=== PATIENT | female | born 1980 | race Caucasian/White ===

== ENCOUNTER 2022-05-02 13:26 | Inpatient (IN) | payer OTHER, MEDICAID, SELFPAY ==
[2022-05-02] VITALS (16 sets, daily range): BP systolic 153–187; BP diastolic 89–142; PULSE 70–112; RESP 12–38; TEMP 36.2–36.7; O2SAT 96–100; BMI 21.0
--- NOTE | 2022-05-02 14:17 | ED.RN ---
PT TOLD THIS RN THAT SHE HAS METH, WEED, AND ALCOHOL IN HER SYSTEM. THIS RN TOLD DR. BELTRAN. PER DR. BELTRAN, MORPHINE OKAY TO GIVE.
[2022-05-02] MEDS: Morphine 4 MG/ML Syringe IV ×2 (14:18→19:31)
--- NOTE | 2022-05-02 14:23 | RAD_ITS ---
STUDY: X-RAY - LEFT ANKLE REASON FOR EXAM: Female, 42 years old. Injury/Pain TECHNIQUE: 3 view(s) of the ankle. COMPARISON: None. FINDINGS: There is an acute comminuted fracture through the mid body of the talus with distraction and complete displacement of the fracture fragments resulting in disarticulation injury. A comminuted fracture of the medial malleolus with displacement is also present. A small avulsive fracture at the periphery of the lateral malleolus is also visualized. The surrounding soft tissues are diffusely swollen. Normal visualized calcaneus. The visualized subtalar, talonavicular, calcaneocuboid and tarsal articulations are normal. The soft tissue structures are unremarkable. RAD/Ankle min 3 Views IMPRESSION: 1. There is an acute comminuted fracture through the mid body of the talus with distraction and complete displacement of the fracture fragments resulting in disarticulation injury. 2. Comminuted fracture the medial malleolus 3. Small avulsive injury at the periphery of the lateral malleolus. Electronically Signed: Brian Delaney MD at 15:02 EST ,
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
--- NOTE | 2022-05-02 15:22 | ED.RN ---
PT A & O X3 PRIOR TO SIGNING CONSENT.
--- NOTE | 2022-05-02 16:10 | RAD_ITS ---
EXAM: XR LEFT ANKLE COMPLETE, 3 OR MORE VIEWS CLINICAL INDICATION: Injury/Pain TECHNIQUE: Frontal, lateral and oblique views of the left ankle. This report was created using [employer] report generation technology. COMPARISON: 04/30/2022 1427 hours FINDINGS: BONES/JOINTS: A fiberglass cast has been placed over the left foot and ankle. Fracture through the mid body talus with displacement as well as the medial malleolus is unchanged. There has been no change in the alignment of the fracture fragments of the tibiotalar joint. No sclerotic or destructive changes observed. SOFT TISSUES: Unremarkable. No soft tissue swelling or gas. No radiopaque foreign body. RAD/Ankle min 3 Views IMPRESSION: Splinting of the fracture and disarticulation of the talus and medial malleolus. There has been no change in alignment. Electronically Signed: Tyron Patrick MD at 16:51 EST ,
[2022-05-02] MEDS: Propofol 200 MG/20 ML Vial IV BOLUS (16:16)
--- NOTE | 2022-05-02 17:00 | CT_ITS ---
EXAM: CT LEFT LOWER EXTREMITY WITHOUT INTRAVENOUS CONTRAST, ANKLE CLINICAL INDICATION: Ankle fracture TECHNIQUE: Helically acquired images were obtained of the left ankle without intravenous contrast. 2-D reformats were performed by the technologist. This CT exam was performed using one or more of the following dose reduction techniques: automated exposure control, adjustment of the mA and/or kV according to patient size, and/or use of iterative reconstruction technique. This report was created using [employer] report Devex technology. COMPARISON: None. FINDINGS: BONES/JOINTS: There is a fracture through the body of the talus. Fracture fragments are distracted approximately 1.8 cm. There is a fracture of the medial malleolus. There has been a posterior rotation of the proximal fragment of the talus bone which is no longer articulating with the tibia. No dislocation. SOFT TISSUES: Unremarkable. No soft tissue swelling or gas. No radiopaque foreign body. CT/Extremity Lower without Contra IMPRESSION: Fracture through the waist of the talus with a posterior rotation of the proximal portion of the talus articulates with the tibia. There is also a fracture of the medial malleolus of the distal tibia. Electronically Signed: Tyron Patrick MD at 18:35 EST ,
[2022-05-02] MEDS: traMADol 50 MG Tablet PO (17:07)
--- NOTE | 2022-05-02 19:17 | ED.RN ---
MARSHAL THAO BOYFRIEND NUMBER [phone]
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
--- NOTE | 2022-05-02 21:41 | EKG12_ITS ---
Test Reason : PRE-OP Blood Pressure : / mmHG Vent. Rate : 070 BPM Atrial Rate : 070 BPM P-R Int : 112 ms QRS Dur : 098 ms QT Int : 426 ms P-R-T Axes : 053 046 070 degrees QTc Int : 460 ms Normal sinus rhythm Normal ECG Confirmed by RONY CESPEDES, ALEJANDRA ([id number]), technical editor ELVIA KEENE ([id number]) on 05/05/2022 9:09:54 AM Referred By: KIM Confirmed By:ALEJANDRA URIBE MD
[2022-05-02] MEDS: 0.9% Normal Saline 1,000 ML 75 ML IV (21:46)
[2022-05-02] MEDS: Morphine 2 MG/ML Syringe IV (21:46)
[2022-05-02 22:12] LABS: Absolute Lymphocyte Count 1.43 X10^3/uL (0.83-4.51); Absolute Neutrophil Count 6.8 X10^3/uL (2.0-7.7); Basophil# 0.02 X10^3/uL; Basophil% 0.2 % (0-1); Eosinophil# 0.03 X10^3/uL; Eosinophils% 0.3 % (0-5); Hematocrit 41.3 % (37-47); Hemoglobin 14.3 g/dL (12.0-15.0); Lymphocyte # 1.43 X10^3/ul (0.83-4.51); Lymphocyte % 15.5 % (19-41); Mean Corp Hgb Conc 34.6 g/dL (32-36); Mean Corpuscular Volume 92.4 fL (81-99); Mean Platelet Vol. 11.2 fl (6.2-12.0); Monocyte# 0.88 X10^3/uL; Monocyte% 9.5 % (0-10); NRBC Flagged by Analyzer 0 % (0-5); Neutrophil # 6.84 X10^3/uL (2.7-7.7); Neutrophil % 74.3 % (47-70); Platelet Count 203 K/mm3 (150-450); RBC Distribution Width CV 12.8 % (11.6-14.6); RBC Distribution Width SD 43.4 fl (35.1-43.9); Red Blood Count 4.47 M/mm3 (4.2-5.4); White Blood Count 9.2 K/mm3 (4.4-11.0)
[2022-05-02 22:36] LABS: Anion Gap 5 (5-15); BUN 10 mg/dL (7-18); BUN/Creat Ratio 15.9 RATIO (10-20); Calcium,Total 8.6 mg/dL (8.5-10.1); Chloride 104 mmol/L (98-107); Creatinine, Serum 0.63 mg/dL (0.55-1.02); EST Glomerular Filtration Rate 110 mL/min (>60); Est Glom Filt Rate - Afr Amer 133 mL/min (>60); Estimated Creatinine Clearance 107.42 ml/min; Glucose 122 mg/dL (74-106); Potassium 3.9 mmol/L (3.5-5.1); Sodium Level 137 mmol/L (136-145)
[2022-05-02] MEDS: hydroCHLOROthiazide 25 MG Tablet PO (22:36)
[2022-05-03 02:00] VITALS: BP 157/78; PULSE 80; RESP 16; TEMP 36.6; O2SAT 99
[2022-05-03] MEDS: oxyCODONE 5 MG Tablet 10 MG PO ×4 (02:45→23:18)
[2022-05-03 03:30] LABS: Internal QC Validated? YES +Cl - CLEAR BKGD; Pregnancy, Urine Negative Negative
[2022-05-03 03:40] LABS: Amphetamine Urine VISTA POSITIVE (<1000 ng/mL); Barbiturate Urine VISTA NEGATIVE (< 200 ng/mL); Benzodiazepine Urine VISTA NEGATIVE (< 200 ng/mL); Cocaine Urine VISTA NEGATIVE (< 300 ng/mL); Ecstacy Urine VISTA POSITIVE (< 500 ng/mL); Methadone Urine VISTA NEGATIVE (< 300 ng/mL); PCP Urine VISTA NEGATIVE (< 25 ng/mL); THC Urine VISTA POSITIVE (< 50 ng/mL); Vista UDS pH Range 5
[2022-05-03 05:33] LABS: Absolute Lymphocyte Count 0.85 X10^3/uL (0.83-4.51); Absolute Neutrophil Count 6.6 X10^3/uL (2.0-7.7); Basophil# 0.01 X10^3/uL; Basophil% 0.1 % (0-1); Eosinophil# 0.04 X10^3/uL; Eosinophils% 0.5 % (0-5); Hematocrit 41.7 % (37-47); Hemoglobin 14.5 g/dL (12.0-15.0); Lymphocyte # 0.85 X10^3/ul (0.83-4.51); Lymphocyte % 10.3 % (19-41); Mean Corp Hgb Conc 34.8 g/dL (32-36); Mean Corpuscular Hgb 31.9 pg (27.0-32.0); Mean Corpuscular Volume 91.6 fL (81-99); Mean Platelet Vol. 11.4 fl (6.2-12.0); Monocyte# 0.77 X10^3/uL; Monocyte% 9.3 % (0-10); NRBC Flagged by Analyzer 0 % (0-5); Neutrophil # 6.55 X10^3/uL (2.7-7.7); Neutrophil % 79.6 % (47-70); Platelet Count 190 K/mm3 (150-450); RBC Distribution Width CV 12.8 % (11.6-14.6); Red Blood Count 4.55 M/mm3 (4.2-5.4); White Blood Count 8.2 K/mm3 (4.4-11.0)
[2022-05-03 06:09] LABS: Anion Gap 8 (5-15); BUN 7 mg/dL (7-18); BUN/Creat Ratio 12.5 RATIO (10-20); Calcium,Total 8.6 mg/dL (8.5-10.1); Chloride 99 mmol/L (98-107); Creatinine, Serum 0.56 mg/dL (0.55-1.02); EST Glomerular Filtration Rate 125 mL/min (>60); Est Glom Filt Rate - Afr Amer 151 mL/min (>60); Estimated Creatinine Clearance 120.85 ml/min; Glucose 122 mg/dL (74-106); Potassium 3.2 mmol/L (3.5-5.1); Sodium Level 133 mmol/L (136-145)
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
[2022-05-03 08:10] VITALS: BP 159/99; PULSE 85; RESP 16; TEMP 36.6; O2SAT 97
[2022-05-03] MEDS: 0.9% Saline Lock 10 ML Syringe IV (08:12)
[2022-05-03] MEDS: Morphine 2 MG/ML Syringe IV (08:12)
[2022-05-03] MEDS: Multivitamins,Therapeutic Tablet 1 TABLET PO (08:16)
[2022-05-03] MEDS: Thiamine Hydrochloride 100 MG Tablet PO (08:16)
[2022-05-03] MEDS: Folic Acid 1 MG Tablet PO (08:16)
--- NOTE | 2022-05-03 10:00 | CASEMGMT ---
RN ZUNILDA SKIN WASHER CM to room to meet with patient for initial transition planning/care coordination assessment. RN ZUNILDA introduced self and role at [facility]. Pt voices understanding and consents to assessment at this time. Pt resting in bed in no distress at this time. Pt is alert at this time. Able to answer most questions appropriately, but then other answers were vague and pt would not provide further information. Care provider and pharmacy verified at this time, but unable to determine if address pt provided is correct. The address listed on demographic sheet is in [place], but pt provided an address in [place]: [address] [place] [address] Rd. When RN ZUNILDA informed her there was an address in [place] listed, pt stated, I'm here, there, everywhere. I'm w/different people. PCP: Janet Johnson NP Specialists: none Preferred Pharmacy: [facility] Insurance: [email or web address] Prescription Benefit: Yes LNOK: Pt states she had a child but she adopted her out. She states her parents are and that she has 3 siblings, but they are not involved and states, It's been a minute since she last spoke w/them. There is a Leif Self, friend, listed on her demographics. She states he used to be her drug and ETOH counselor. RN ZUNILDA inquired if she is still seeing a counselor. She stated, No, but I need to. ETOH/Drug use: Pt states she currently drinks ETOH, stating she drinks 3 drinks, if that, a day. She also states she currently uses IV drugs, meth and heroin, stating last use was a couple days ago. She states she smokes marijuana As often as I can. Living Arrangements: Pt states she lives w/a friend, Mariano Smith, in a manufactured home one story w/3 steps to enter. She thinks his phone number is [phone], but she is not sure. She reports being independent w/ADL's. She states she does not take any medications, stating, I'm supposed to be on meds, but I don't take them. TANIA MAURO inquired what the reason is for not taking them and she stated, I just don't. Transportation: friends give me rides DME: Denies using any DME HHC/SNF: Denies hx of either. Pt states, I want to go to a [facility], stating she is having so much pain and she is unable to walk. PLAN: TBD. Possible SNF placement. RUBY, Marci, and MS3 RN Thania MAURO, made aware of the above information Maciel MURCIAN RN CM
[2022-05-03 10:01] LABS: Magnesium 1.7 mg/dL (1.6-2.6)
[2022-05-03] MEDS: hydroCHLOROthiazide 25 MG Tablet PO (10:24)
[2022-05-03] MEDS: Potassium Chloride Oral Tablet 20 MEQ 40 MEQ PO ×2 (10:25→13:56)
[2022-05-03] MEDS: 0.9% Normal Saline 1,000 ML 75 ML IV ×2 (10:29→23:18)
--- NOTE | 2022-05-03 10:56 | CASEMGMT ---
Social Work SW informed by RNCM Karina that pt is requesting SNF at discharge. Pt having surgery tomorrow for ankle fracture, if pt is a&o x3 and can consent. RNCM also shared pt disclosed has been struggling with drug and alcohol use and would like to speak to someone regarding counseling. SW updated [facility] watchmaking teacher, Domiinque De La O. Dominique to see pt when pt is more alert. PLAN: TBD, will await therapy following surgery to determine need for SNF NOAM Aguirre
[2022-05-03] MEDS: Lisinopril 10 MG Tablet PO (13:56)
[2022-05-03 13:59] VITALS: BP 157/98; PULSE 82; RESP 16; TEMP 36.6; O2SAT 98
[2022-05-03 23:08] VITALS: BP 162/109; PULSE 98; RESP 18; TEMP 36.6; O2SAT 100
[2022-05-03 23:18] VITALS: BP 162/109; PULSE 98
[2022-05-03] MEDS: hydrALAZINE 20 MG/ML Vial 5 MG IV (23:18)
[2022-05-04] VITALS (10 sets, daily range): BP systolic 109–165; BP diastolic 78–101; PULSE 94–135; RESP 15–20; TEMP 36.6–38.7; O2SAT 95–100; BMI 19.3
[2022-05-04] MEDS: Cefazolin 2 GM in 0.9% Normal Saline 100 ML IV (08:02)
--- NOTE | 2022-05-04 08:04 | RAD_ITS ---
STUDY: X-RAY - LEFT ANKLE REASON FOR EXAM: Female, 42 years old. FX TECHNIQUE: 19 fluoroscopic spot view(s) of the ankle. COMPARISON: May 02, 2022. FINDINGS: Progressive fixation hardware placement medial malleolus and talus. RAD/Ankle 2 Views IMPRESSION: Please correlate with clinical service. Electronically Signed: Shaquille Muniz MD at 17:47 EST ,
[2022-05-04] MEDS: Lactated Ringers 1,000 ML 15 ML IV (08:10)
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
--- NOTE | 2022-05-04 14:22 | RAD_ITS ---
EXAM: XR LEFT FOOT COMPLETE, 3 OR MORE VIEWS CLINICAL INDICATION: Postop ORIF TECHNIQUE: Frontal, lateral and oblique views of the left foot. This report was created using [employer] (formerly [employer]) report generation technology. COMPARISON: 05/02/2022. FINDINGS: BONES/JOINTS: Plate and screw fixation of the medial malleolus with anatomic alignment. Plate and screw fixation of the talus with near anatomic alignment of the fragments. No acute fracture. Preservation of the joint space. No sclerotic or destructive changes observed. Normal width of the mortise. SOFT TISSUES: Unremarkable. No soft tissue swelling or gas. No radiopaque foreign body. OTHER FINDINGS: Fiberglas cast. RAD/Foot min 3 Views IMPRESSION: 1. Plate and screw fixation of the medial malleolus with anatomic alignment. 2. Plate and screw fixation of the talus with near anatomic alignment of the fragments. Electronically Signed: Reji Garcia MD at 5:35 EST ,
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
--- NOTE | 2022-05-04 14:40 | RAD_ITS ---
STUDY: X-RAY - LEFT ANKLE REASON FOR EXAM: Female, 42 years old. Post operative TECHNIQUE: 3 view(s) of the ankle. COMPARISON: None. FINDINGS: Sideplate and screws transfix a nondisplaced fracture of the medial malleolus. Screws and plates transfixing the talus. Detail obscured by posterior fiberglass splint. RAD/Ankle min 3 Views IMPRESSION: Status post ORIF as above Electronically Signed: Shaquille Muniz MD at 17:50 EST ,
[2022-05-04] MEDS: Lisinopril 10 MG Tablet PO (16:00)
[2022-05-04] MEDS: Thiamine Hydrochloride 100 MG Tablet PO (16:00)
[2022-05-04] MEDS: Multivitamins,Therapeutic Tablet 1 TABLET PO (16:00)
[2022-05-04] MEDS: Folic Acid 1 MG Tablet PO (16:00)
[2022-05-04] MEDS: hydroCHLOROthiazide 12.5mg 12.5 MG PO (16:00)
[2022-05-04] MEDS: 0.9% Saline Lock 10 ML Syringe IV (21:06)
[2022-05-04] MEDS: HYDROmorphone 0.5 MG/0.5 ML SYRINGE IV (21:06)
[2022-05-04] MEDS: Acetaminophen 325 MG Tablet 650 MG PO (21:36)
[2022-05-05] MEDS: 0.9% Saline Lock 10 ML Syringe IV ×2 (03:01→22:06)
[2022-05-05] MEDS: HYDROmorphone 0.5 MG/0.5 ML SYRINGE IV (03:01)
[2022-05-05 03:14] VITALS: BP 138/75; PULSE 108; RESP 18; TEMP 37.1; O2SAT 95
[2022-05-05 06:50] LABS: Absolute Lymphocyte Count 2.52 X10^3/uL (0.83-4.51); Absolute Neutrophil Count 10.1 X10^3/uL (2.0-7.7); Basophil# 0.02 X10^3/uL; Basophil% 0.1 % (0-1); Eosinophil# 0.03 X10^3/uL; Eosinophils% 0.2 % (0-5); Hematocrit 40.7 % (37-47); Hemoglobin 13.7 g/dL (12.0-15.0); Lymphocyte # 2.52 X10^3/ul (0.83-4.51); Lymphocyte % 17.3 % (19-41); Mean Corp Hgb Conc 33.7 g/dL (32-36); Mean Corpuscular Hgb 31.4 pg (27.0-32.0); Mean Corpuscular Volume 93.3 fL (81-99); Mean Platelet Vol. 11.7 fl (6.2-12.0); Monocyte# 1.88 X10^3/uL; Monocyte% 12.9 % (0-10); NRBC Flagged by Analyzer 0 % (0-5); Neutrophil # 10.05 X10^3/uL (2.7-7.7); Neutrophil % 68.9 % (47-70); POSITIVE DIFFERENTIAL YES; Platelet Count 189 K/mm3 (150-450); RBC Distribution Width CV 13.2 % (11.6-14.6); RBC Distribution Width SD 45.3 fl (35.1-43.9); Red Blood Count 4.36 M/mm3 (4.2-5.4); White Blood Count 14.6 K/mm3 (4.4-11.0)
[2022-05-05 06:56] LABS: Differential Indicated SCAN CRITERIA MET
[2022-05-05 07:19] LABS: Anion Gap 6 (5-15); BUN 12 mg/dL (7-18); BUN/Creat Ratio 18.5 RATIO (10-20); Calcium,Total 8.7 mg/dL (8.5-10.1); Chloride 98 mmol/L (98-107); Creatinine, Serum 0.65 mg/dL (0.55-1.02); EST Glomerular Filtration Rate 106 mL/min (>60); Est Glom Filt Rate - Afr Amer 128 mL/min (>60); Estimated Creatinine Clearance 99.89 ml/min; Glucose 157 mg/dL (74-106); Potassium 3.9 mmol/L (3.5-5.1); Sodium Level 132 mmol/L (136-145)
[2022-05-05] MEDS: Acetaminophen 325 MG Tablet 650 MG PO (07:28)
[2022-05-05] MEDS: oxyCODONE 5 MG Tablet 10 MG PO (07:29)
[2022-05-05] MEDS: Lisinopril 10 MG Tablet PO (07:33)
[2022-05-05] MEDS: hydroCHLOROthiazide 12.5mg 12.5 MG PO (07:33)
[2022-05-05] MEDS: Multivitamins,Therapeutic Tablet 1 TABLET PO (07:33)
[2022-05-05 07:35] VITALS: BP 125/89; PULSE 98; RESP 18; TEMP 36.6; O2SAT 98
[2022-05-05 11:00] VITALS: RESP 18; O2SAT 95
[2022-05-05 12:00] VITALS: BP 115/88; PULSE 106; RESP 18; TEMP 36.6; O2SAT 100
[2022-05-05] MEDS: oxyCODONE 5 MG Tablet PO ×2 (13:46→22:06)
[2022-05-05] MEDS: Ibuprofen 600 MG Tablet PO ×2 (13:47→22:06)
[2022-05-05] MEDS: Pantoprazole Sodium 40 MG Tablet PO ×2 (13:48→17:53)
--- NOTE | 2022-05-05 13:55 | CASEMGMT ---
Social Work SW in to meet with pt following update from that pt will need placement at nursing facility d/t homeless status and being non-weight bearing following surgery. SW introduced self and role at the hospital. Pt agreeable to discussing discharge planning however, did not make eye contact, hid under the sheet on the bed and mumbled throughout brief discussion. A list of SNF providers including quality and resource use data consistent with the patient?s preferred geographic region, medical needs, and insurance network were provided from the [employer] Guide. Pt seemed to review list but eyes were rolling and unfocused. Pt struggled to read list and appeared to be impacted by medication. Pt also naked under sheet, denied needing assistance to get dressed, prefers to be unclothed. Pt had surgery yesterday, pt on pain management meds at this time. SW asked pt to review list and SW will be back later in the day to discuss choices. Pt voiced understanding. SW followed up with pt nurse after leaving pt room, discussed that pt appeared to possibly have to much medication. Nurse stated following surgery pt has had narcotics to assist with pain and nurse reviewed with pt . Later in the day SW back in to discuss SNF choice with pt. SW had difficult time understanding pt as pt again mumbling and covering mouth with the blanket during speaking. Pt presenting with strange mannerism, curling arms up and stretching them over face while SW in the room. Pt was able to voice [facility] was preference for [facility]. SW offered education regarding past drug history, that it could impact acceptance at some SNF providers and encouraged pt to give alternative options in the event that [facility] unable to accept. any place in [place] as other SNF choices. SW sent referral to [facility] and [facility] in [place] via [employer]. PLAN: [facility] vs. [facility], pending acceptance and precert NOAM Aguirre?
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
--- NOTE | 2022-05-05 15:20 | CASEMGMT ---
Social Work SW received message from [facility]. [facility] unable to accept pt. Pt sleeping, SW will inform pt tomorrow. NOAM Aguirre
[2022-05-05 17:00] VITALS: BP 126/86; PULSE 100; RESP 18; TEMP 37.1; O2SAT 95
[2022-05-05] MEDS: Folic Acid 1 MG Tablet PO (17:54)
[2022-05-05] MEDS: Acetaminophen 500 MG Tablet 1000 MG PO (17:54)
--- NOTE | 2022-05-05 19:56 | PN_ITS ---
Subjective Subjective Patient was seen this evening in bed resting. She does admit to some pain in the left lower extremity. She did eat today however her appetite is low. She states she just wants to sleep. States therapy did come to her room to work with her and her nonweightbearing status. She denies any current constitutional symptoms. She denies any further complaints. Objective Data Objective Data Vital Signs: Vital Signs Temp Pulse Resp BP Pulse Ox O2 Del Method O2 Flow Rate 98.7 F 100 18 126/86 H 95 Room Air 2 05/05/22 17:00 05/05/22 17:00 05/05/22 17:00 05/05/22 17:00 05/05/22 17:00 05/05/22 17:00 05/02/22 15:27 Oxygen Flow Rate (L/min) [8] 2 Oxygen Flow Rate (L/min) [7] 2 Oxygen Flow Rate (L/min) [6] 2 Oxygen Flow Rate (L/min) [5] 2 Oxygen Flow Rate (L/min) [4] 2 Oxygen Flow Rate (L/min) [3] 2 Oxygen Flow Rate (L/min) [2] 2 Oxygen Flow Rate (L/min) [1 ( 2 Initial Baseline)] Oxygen Flow Rate (L/min) 2 Oxygen Delivery Method [9] Room Air Oxygen Delivery Method [8] Nasal Cannula Oxygen Delivery Method [7] Nasal Cannula Oxygen Delivery Method [6] Nasal Cannula Oxygen Delivery Method [5] Nasal Cannula Oxygen Delivery Method [4] Nasal Cannula Oxygen Delivery Method [3] Nasal Cannula Oxygen Delivery Method [2] Nasal Cannula Oxygen Delivery Method [1 ( Nasal Cannula Initial Baseline)] Oxygen Delivery Method Room Air Weight: 56.699 kg Body Mass Index (BMI) 19.3 Intake & Output: Intake and Output for Last 24 Hours 05/03/22 05/04/22 05/05/22 23:59 23:59 23:59 Intake Total 2365.00 / 2665.00 2672.5 / 2672.5 300 / 300 Output Total 50 / 50 1550 / 1550 650 / 650 Balance 2315.00 / 2615.00 1122.5 / 1122.5 -350 / -350 Lab / Micro Data Result Diagrams: 05/05/22 06:18 05/05/22 06:18 Labs: Laboratory Results - last 24 hr 05/05/22 06:18: WBC 14.6 H, RBC 4.36, Hgb 13.7, Hct 40.7, MCV 93.3, MCH 31.4, MCHC 33.7, RDW Std Deviation 45.3 H, RDW Coeff of Soila 13.2, Plt Count 189, MPV 11.7, Immature Gran % (Auto) 0.600, Neut % (Auto) 68.9, Lymph % (Auto) 17.3 L, [place] % (Auto) 12.9 H, Eos % (Auto) 0.2, Baso % (Auto) 0.1, Absolute Neuts (auto) 10.1 H, Absolute Lymphs (auto) 2.52, Nucleated RBC % 0, Differential Comment COMMENT, Diff Path Review August05/05/22 06:18: Sodium 132 L, Potassium 3.9, Chloride 98, Carbon Dioxide 28.0, Anion Gap 6, BUN 12, Creatinine 0.65, Estim Creat Clear Calc 99.89, Est GFR (MDRD) Af Amer 128, Est GFR (MDRD) Non-Af 106, BUN/Creatinine Ratio 18.5, Glucose 157 H, Calcium 8.7 Radiography Diagnostic Testing: Radiology Impression Foot X-Ray 05/04/22 14:22 IMPRESSION: 1. Plate and screw fixation of the medial malleolus with anatomic alignment. 2. Plate and screw fixation of the talus with near anatomic alignment of the fragments. Electronically Signed: Reji Garcia MD at 5:35 EST , Physical Exam Const alert and oriented x3 General Appearance: cooperative Exam Limitations: Negative for altered mental status HEENT normocephalic Eyes General Eye: normal appearance of both eyes Neck General: normal visual inspection Lymph Lymphatic: no lymphadenopathy noted and no lymphedema noted Resp normal respiratory effort Cardio regular rate and regular rhythm GI soft to palpation and non-tender Extremity normal capillary refill and no calf tenderness Extremity Narrative: Left lower extremity demonstrates significant edema and ecchymosis secondary to fracture of the medial malleolus and talus. DP and PT pulses are palpable with adequate capillary fill time that is brisk to the digits. Digits are also noted to be edematous. Sutures intact to the anterior medial and anterior lateral left ankle. Sutures intact at stab incision sites posterior lateral leg and medial and lateral calcaneus. No signs of infection. Musculoskeletal: No gross deformity noted postsurgical repair. There is tenderness to palpation about the ankle and foot. Posterior splint with sugar- tong cast applied and intact to left lower extremity. Skin no rashes or lesions noted, skin turgor normal and no jaundice Neuro oriented x3 and moves all extremities Speech: speech normal Gait (Neuro): unable to assess gait Psych cooperative, affect normal and speech normal Assessment & Plan Assessment/Plan (1) Fracture closed, talus: (2) Closed dislocation of left ankle: (3) Closed left ankle fracture: (4) Pain in left foot: PLAN: Plan Patient was seen and evaluated She is s/p ORIF of the talus and ORIF of the medial malleolus. DOS: 05/04/2022, POD #1 On examination there is significant edema and ecchymosis of the foot and ankle. Posterior splint sugar-tong cast intact with foot resting flat on bed. Sutures intact to anterior medial and anterior lateral ankle. No signs of infection. She does still have tenderness about the foot and ankle. DP and PT pulses intact with adequate capillary refill with sensation intact and equal to the contralateral limb. Neurovascular structures intact. I again discussed the high risk of avascular necrosis of the talus and the high likelihood of postoperative arthritis secondary to the severe trauma. She voices understanding of the nature of her injury. She understands that she may be required to undergo a TTC arthrodesis in the next few years to address these issues. I again discussed with her that no promises or guarantees could be made. Imaging: Radiographs 05/02/2022 demonstrates 1. acute comminuted fracture through the mid body of the talus with distraction and complete displacement of fracture fragments resulting in disarticulation injury; 2. Comminuted fracture medial malleolus; 3. Small avulsive injury at the periphery of the lateral malleolus. CT obtained 05/02/2022 demonstrates fracture through the waist of the talus with a posterior rotation of the proximal portion of the talus articulates with the tibia. Fracture fragments are distracted approximately 1.8 cm. There is also a fracture of the medial malleolus of the distal tibia. Postoperative imaging of foot and ankle from 05/04/2022 demonstrate 1. plate and screw fixation of the medial malleolus with anatomic alignment and 2. plate and screw fixation of the talus with near-anatomic alignment Edema: She was reminded to continue elevating the left lower extremity at all times of rest to aid in postoperative edema control. Pain: Currently on oxycodone and Tylenol. Oxycodone 5 mg may be taken for moderate pain and Dilaudid for severe pain. Nursing instructed to hold for lethargy. Zofran IV as needed for postoperative nausea. She is to continue to remain nonweightbearing to the left lower extremity at all times with the assistance of crutches or a knee scooter. She was again instructed that her nonweightbearing status is strict. Discussed placing any weight to the foot will likely result in progression of her fracture and failure of the talus resulting in avascular necrosis. Medicine team consulted and currently following for medical management. This is greatly appreciated. Recommend SNF placement following her discharge given her prior history and toxicology screening, in addition to her strict nonweightbearing status to the left lower extremity. Please do not hesitate to call for any questions or concerns. Podiatry will continue to follow in postoperative period. Expecting to stay for pain control postoperatively until placement can be made. Reji Bolton Jr. D.P.M. [facility] [place] [phone] Note: [employer] speech recognition functional tester typewriters software was used to create portions of this document. Sound-alike and misspelled words, as well as other functional tester typewriters errors may be contained in the documentation.
[2022-05-05 22:24] VITALS: BP 129/79; PULSE 100; RESP 16; TEMP 37.2; O2SAT 97
[2022-05-06] MEDS: Acetaminophen 500 MG Tablet 1000 MG PO ×3 (00:09→16:43)
[2022-05-06 02:35] VITALS: BP 105/69; PULSE 95; RESP 18; TEMP 36.6; O2SAT 97
[2022-05-06] MEDS: HYDROmorphone 0.5 MG/0.5 ML SYRINGE IV ×2 (02:40→13:09)
[2022-05-06] MEDS: 0.9% Saline Lock 10 ML Syringe IV ×3 (02:40→21:06)
[2022-05-06] MEDS: Ibuprofen 600 MG Tablet PO ×3 (05:29→21:00)
[2022-05-06] MEDS: oxyCODONE 5 MG Tablet PO ×3 (05:29→18:48)
[2022-05-06 07:19] LABS: Anion Gap 7 (5-15); BUN 24 mg/dL (7-18); BUN/Creat Ratio 41.9 RATIO (10-20); Calcium,Total 8.9 mg/dL (8.5-10.1); Chloride 100 mmol/L (98-107); Creatinine, Serum 0.57 mg/dL (0.55-1.02); EST Glomerular Filtration Rate 122 mL/min (>60); Est Glom Filt Rate - Afr Amer 148 mL/min (>60); Estimated Creatinine Clearance 113.91 ml/min; Glucose 125 mg/dL (74-106); Sodium Level 133 mmol/L (136-145)
[2022-05-06] MEDS: Lisinopril 10 MG Tablet PO (08:50)
[2022-05-06] MEDS: hydroCHLOROthiazide 12.5mg 12.5 MG PO (08:50)
[2022-05-06] MEDS: Thiamine Hydrochloride 100 MG Tablet PO (08:50)
[2022-05-06] MEDS: Multivitamins,Therapeutic Tablet 1 TABLET PO (08:50)
[2022-05-06] MEDS: Folic Acid 1 MG Tablet PO (08:50)
[2022-05-06 08:56] VITALS: BP 120/74; PULSE 86; RESP 18; TEMP 36.6; O2SAT 97
[2022-05-06 10:39] LABS: Pathologist Review Reviewed
--- NOTE | 2022-05-06 10:57 | CASEMGMT ---
Social Work SW received message from [facility] that they are not able to accept pt. SW met with pt in room. Pt introduced her friend Freddy who is visiting and gave permission for SW to speak in front of Freddy. SW explained that [facility] had [facility] to [facility] and both declined acceptance. SW reviewed list of SNF providers and pt next choices are 1. [facility] and 2. [facility]. Referral sent to [facility]. Will await determination of acceptance. NOAM Tong
--- NOTE | 2022-05-06 13:46 | PN_ITS ---
Subjective Subjective Patient seen today resting in bed with foot elevated and ice applied behind the knee. She states she has been resting. Her appetite has returned. She denies any constitutional symptoms. She denies any pain in her calf. She does admit to tenderness of her ankle. She has no further complaints today. Objective Data Objective Data Vital Signs: Vital Signs Temp Pulse Resp BP Pulse Ox O2 Del Method O2 Flow Rate 97.9 F 86 18 120/74 97 Room Air 2 05/06/22 08:56 05/06/22 08:56 05/06/22 08:56 05/06/22 08:56 05/06/22 08:56 05/06/22 09:47 05/02/22 15:27 Oxygen Flow Rate (L/min) [8] 2 Oxygen Flow Rate (L/min) [7] 2 Oxygen Flow Rate (L/min) [6] 2 Oxygen Flow Rate (L/min) [5] 2 Oxygen Flow Rate (L/min) [4] 2 Oxygen Flow Rate (L/min) [3] 2 Oxygen Flow Rate (L/min) [2] 2 Oxygen Flow Rate (L/min) [1 ( 2 Initial Baseline)] Oxygen Flow Rate (L/min) 2 Oxygen Delivery Method [9] Room Air Oxygen Delivery Method [8] Nasal Cannula Oxygen Delivery Method [7] Nasal Cannula Oxygen Delivery Method [6] Nasal Cannula Oxygen Delivery Method [5] Nasal Cannula Oxygen Delivery Method [4] Nasal Cannula Oxygen Delivery Method [3] Nasal Cannula Oxygen Delivery Method [2] Nasal Cannula Oxygen Delivery Method [1 ( Nasal Cannula Initial Baseline)] Oxygen Delivery Method Room Air Weight: 56.699 kg Body Mass Index (BMI) 19.3 Intake & Output: Intake and Output for Last 24 Hours 05/04/22 05/05/22 05/06/22 23:59 23:59 23:59 Intake Total 2672.5 / 2672.5 300 / 300 600 / 600 Output Total 1550 / 1550 650 / 650 200 / 200 Balance 1122.5 / 1122.5 -350 / -350 400 / 400 Lab / Micro Data Result Diagrams: 05/05/22 06:18 05/06/22 06:30 Labs: Laboratory Results - last 24 hr 05/05/22 06:18: Diff Path Review Reviewed 05/06/22 06:30: Sodium 133 L, Potassium 4.0, Chloride 100, Carbon Dioxide 26.0, Anion Gap 7, BUN 24 H, Creatinine 0.57, Estim Creat Clear Calc 113.91, Est GFR (MDRD) Af Amer 148, Est GFR (MDRD) Non-Af 122, BUN/Creatinine Ratio 41.9 H, Glucose 125 H, Calcium 8.9 Physical Exam Const alert and oriented x3 General Appearance: cooperative Exam Limitations: Negative for altered mental status HEENT normocephalic Eyes General Eye: normal appearance of both eyes Neck General: normal visual inspection Lymph Lymphatic: no lymphadenopathy noted and no lymphedema noted Resp normal respiratory effort Cardio regular rate and regular rhythm GI soft to palpation and non-tender Extremity normal capillary refill and no calf tenderness Extremity Narrative: Left lower extremity demonstrates significant edema and ecchymosis secondary to fracture of the medial malleolus and talus. DP and PT pulses are palpable with adequate capillary fill time that is brisk to the digits. Digits are also noted to be edematous. Sutures intact to the anterior medial and anterior lateral left ankle. Sutures intact at stab incision sites posterior lateral leg and medial and lateral calcaneus. No signs of infection. Musculoskeletal: No gross deformity noted postsurgical repair. There is tenderness to palpation about the ankle and foot. Posterior splint with sugar- tong cast applied and intact to left lower extremity. Skin no rashes or lesions noted, skin turgor normal and no jaundice Neuro oriented x3 and moves all extremities Speech: speech normal Gait (Neuro): unable to assess gait Psych cooperative, affect normal and speech normal Assessment & Plan Assessment/Plan (1) Fracture closed, talus: (2) Closed dislocation of left ankle: (3) Closed left ankle fracture: (4) Pain in left foot: PLAN: Plan Patient was seen and evaluated She is s/p ORIF of the talus and ORIF of the medial malleolus. DOS: 05/04/2022, POD #2 On examination there is moderate edema of the foot and ankle, edema improving with compression dressing and elevation of the lower extremity. Posterior splint sugar-tong cast intact with foot resting flat on bed. Sutures intact to anterior medial and anterior lateral ankle. No signs of infection. She does still have tenderness about the foot and ankle. DP and PT pulses intact with adequate capillary refill with sensation intact and equal to the contralateral limb. Neurovascular structures intact. Dressings changed today consisting of Xeroform to all incision sites and posterior medial previous area of fracture blister, 4 x 4 gauze, ABD x2, Dada x2, Kerlix, web roll cast padding, 4 inch Grover and 6 inch Grover. Posterior splint and sugar-tong cast were reapplied and anchored with a 4 inch and 6 inch Grover wrap. I again discussed the high risk of avascular necrosis of the talus and the high likelihood of postoperative arthritis secondary to the severe trauma. She voices understanding of the nature of her injury. She understands that she may be required to undergo a TTC arthrodesis in the next few years to address these issues. I again discussed with her that no promises or guarantees could be made. Imaging: Radiographs 05/02/2022 demonstrates 1. acute comminuted fracture through the mid body of the talus with distraction and complete displacement of fracture fragments resulting in disarticulation injury; 2. Comminuted fracture medial malleolus; 3. Small avulsive injury at the periphery of the lateral malleolus. CT obtained 05/02/2022 demonstrates fracture through the waist of the talus with a posterior rotation of the proximal portion of the talus articulates with the tibia. Fracture fragments are distracted approximately 1.8 cm. There is also a fracture of the medial malleolus of the distal tibia. Postoperative imaging of foot and ankle from 05/04/2022 demonstrate 1. plate and screw fixation of the medial malleolus with anatomic alignment and 2. plate and screw fixation of the talus with near-anatomic alignment Edema: She was reminded to continue elevating the left lower extremity at all times of rest to aid in postoperative edema control. Pain: Currently on oxycodone and Tylenol. Oxycodone 5 mg may be taken for moderate pain and Dilaudid for severe pain. Nursing instructed to hold for lethargy. Zofran IV as needed for postoperative nausea. She is on Lovenox 40 mg subQ daily x20 days for anticoagulant therapy. She is to continue to remain nonweightbearing to the left lower extremity at all times with the assistance of crutches or a knee scooter. She was again instructed that her nonweightbearing status is strict. Discussed placing any weight to the foot will likely result in progression of her fracture and failure of the talus resulting in avascular necrosis. Medicine team consulted and currently following for medical management. This is greatly appreciated. Recommend SNF placement following her discharge given her prior history and toxicology screening, in addition to her strict nonweightbearing status to the left lower extremity. Awaiting SNF placement. Upon discharge to her SNF she is to be seen by me in office in 3 to 5 days for continued postoperative care. Please do not hesitate to call for any questions or concerns. Podiatry will continue to follow in postoperative period. Expecting to stay for pain control postoperatively until placement can be made. Jr. Nabeel Murcia.P.M. [facility] [phone] Note: [employer] speech recognition line patroller software was used to create portions of this document. Sound-alike and misspelled words, as well as other line patroller errors may be contained in the documentation.
[2022-05-06 14:49] VITALS: BP 111/62; PULSE 83; RESP 16; TEMP 36.8; O2SAT 99
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
[2022-05-06 20:52] VITALS: BP 107/68; PULSE 94; RESP 18; TEMP 36.8; O2SAT 97
[2022-05-07] MEDS: Acetaminophen 500 MG Tablet 1000 MG PO ×3 (00:01→15:57)
[2022-05-07] MEDS: oxyCODONE 5 MG Tablet PO ×4 (00:01→19:50)
[2022-05-07 03:30] VITALS: BP 111/63; PULSE 98; RESP 16; TEMP 37.2; O2SAT 96
[2022-05-07] MEDS: Ibuprofen 600 MG Tablet PO ×3 (05:57→22:27)
[2022-05-07 08:07] VITALS: BP 120/77; PULSE 100; PULSE 105; RESP 16; TEMP 36.8; O2SAT 99
[2022-05-07] MEDS: Folic Acid 1 MG Tablet PO (08:24)
[2022-05-07] MEDS: Pantoprazole Sodium 40 MG Tablet PO (08:25)
[2022-05-07] MEDS: Lisinopril 10 MG Tablet PO (08:25)
[2022-05-07] MEDS: Multivitamins,Therapeutic Tablet 1 TABLET PO (08:25)
[2022-05-07] MEDS: hydroCHLOROthiazide 12.5mg 12.5 MG PO (08:25)
[2022-05-07] MEDS: Thiamine Hydrochloride 100 MG Tablet PO (08:25)
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
[2022-05-07 14:00] VITALS: BP 101/69; PULSE 108; RESP 20; TEMP 36.6; O2SAT 99
[2022-05-07 14:03] VITALS: PULSE 120
[2022-05-07] MEDS: 0.9% Saline Lock 10 ML Syringe IV (14:12)
[2022-05-07] MEDS: HYDROmorphone 0.5 MG/0.5 ML SYRINGE IV (14:12)
--- NOTE | 2022-05-07 14:59 | PN_ITS ---
Subjective Subjective Patient seen today resting bedside in chair with feet elevated. Left lower extremity well-padded with pillow. Patient continues to eat well. States therapy continues to work with her. Currently denies pain to the left lower extremity. Denies any calf pain. Denies any constitutional symptoms. Has no further complaints. Objective Data Objective Data Vital Signs: Vital Signs Temp Pulse Resp BP Pulse Ox O2 Del Method O2 Flow Rate 98 F 120 H 20 H 101/69 99 Room Air 2 05/07/22 14:00 05/07/22 14:03 05/07/22 14:00 05/07/22 14:00 05/07/22 14:00 05/07/22 14:03 05/02/22 15:27 Oxygen Flow Rate (L/min) [8] 2 Oxygen Flow Rate (L/min) [7] 2 Oxygen Flow Rate (L/min) [6] 2 Oxygen Flow Rate (L/min) [5] 2 Oxygen Flow Rate (L/min) [4] 2 Oxygen Flow Rate (L/min) [3] 2 Oxygen Flow Rate (L/min) [2] 2 Oxygen Flow Rate (L/min) [1 ( 2 Initial Baseline)] Oxygen Flow Rate (L/min) 2 Oxygen Delivery Method [9] Room Air Oxygen Delivery Method [8] Nasal Cannula Oxygen Delivery Method [7] Nasal Cannula Oxygen Delivery Method [6] Nasal Cannula Oxygen Delivery Method [5] Nasal Cannula Oxygen Delivery Method [4] Nasal Cannula Oxygen Delivery Method [3] Nasal Cannula Oxygen Delivery Method [2] Nasal Cannula Oxygen Delivery Method [1 ( Nasal Cannula Initial Baseline)] Oxygen Delivery Method Room Air Weight: 56.699 kg Body Mass Index (BMI) 19.3 Intake & Output: Intake and Output for Last 24 Hours 05/05/22 05/06/22 05/07/22 23:59 23:59 23:59 Intake Total 300 / 300 600 / 1200 700 / 700 Output Total 650 / 650 1250 / 1450 200 / 200 Balance -350 / -350 -650 / -250 500 / 500 Lab / Micro Data Result Diagrams: 05/05/22 06:18 05/06/22 06:30 Physical Exam Const alert and oriented x3 General Appearance: cooperative Exam Limitations: Negative for altered mental status HEENT normocephalic Eyes General Eye: normal appearance of both eyes Neck General: normal visual inspection Lymph Lymphatic: no lymphadenopathy noted and no lymphedema noted Resp normal respiratory effort Cardio regular rate and regular rhythm GI soft to palpation and non-tender Extremity normal capillary refill and no calf tenderness Extremity Narrative: Left lower extremity demonstrates significant edema and ecchymosis secondary to fracture of the medial malleolus and talus. DP and PT pulses are palpable with adequate capillary fill time that is brisk to the digits. Digits are also noted to be edematous. Sutures intact to the anterior medial and anterior lateral left ankle. Sutures intact at stab incision sites posterior lateral leg and medial and lateral calcaneus. No signs of infection. Musculoskeletal: No gross deformity noted postsurgical repair. There is tenderness to palpation about the ankle and foot. Posterior splint with sugar- tong cast applied and intact to left lower extremity. Skin no rashes or lesions noted, skin turgor normal and no jaundice Neuro oriented x3 and moves all extremities Speech: speech normal Gait (Neuro): unable to assess gait Psych cooperative, affect normal and speech normal Assessment & Plan Assessment/Plan (1) Fracture closed, talus: (2) Closed dislocation of left ankle: (3) Closed left ankle fracture: (4) Pain in left foot: PLAN: Plan Patient was seen and evaluated She is s/p ORIF of the talus and ORIF of the medial malleolus. DOS: 05/04/2022, POD #3 On examination there is moderate edema of the foot and ankle, edema improving with compression dressing and elevation of the lower extremity. Posterior splint sugar-tong cast intact with foot elevated and padded by pillow. Sutures intact to anterior medial and anterior lateral ankle. No signs of infection. She does still have tenderness about the foot and ankle. DP and PT pulses intact with adequate capillary refill with sensation intact and equal to the contralateral limb. Neurovascular structures intact. Dressings changed today consisting of Xeroform to all incision sites and posterior medial previous area of fracture blister, 4 x 4 gauze, ABD x2, Dada x2, Kerlix, web roll cast padding, 4 inch Grover and 6 inch Grover. Posterior splint and sugar-tong cast were reapplied and anchored with a 4 inch and 6 inch Grover wrap. I again discussed the high risk of avascular necrosis of the talus and the high likelihood of postoperative arthritis secondary to the severe trauma. She voices understanding of the nature of her injury. She understands that she may be required to undergo a TTC arthrodesis in the next few years to address these issues. I again discussed with her that no promises or guarantees could be made. Imaging: Radiographs 05/02/2022 demonstrates 1. acute comminuted fracture through the mid body of the talus with distraction and complete displacement of fracture fragments resulting in disarticulation injury; 2. Comminuted fracture medial malleolus; 3. Small avulsive injury at the periphery of the lateral mal leolus. CT obtained 05/02/2022 demonstrates fracture through the waist of the talus with a posterior rotation of the proximal portion of the talus articulates with the tibia. Fracture fragments are distracted approximately 1.8 cm. There is also a fracture of the medial malleolus of the distal tibia. Postoperative imaging of foot and ankle from 05/04/2022 demonstrate 1. plate and screw fixati on of the medial malleolus with anatomic alignment and 2. plate and screw fixation of the talus with near-anatomic alignment Edema: She was reminded to continue elevating the left lower extremity at all times of rest to aid in postoperative edema control. Pain: Currently on oxycodone and Tylenol, may begin to wane and receive as needed. Oxycodone 5 mg may be taken for moderate pain and Dilaudid for severe pain. Nursing instructed to hold opidois for lethargy. Zofran IV as needed for postoperative nausea. She is on Lovenox 40 mg subQ daily x20 days for anticoagulant therapy. She is to continue to remain nonweightbearing to the left lower extremity at all times with the assistance of crutches or a knee scooter. She was again instructed that her nonweightbearing status is strict. Discussed placing any weight to the foot will likely result in progression of her fracture and failure of the talus resulting in avascular necrosis. Medicine team consulted and currently following for medical management. This is greatly appreciated. I discussed with the hospitalist that from my perspective patient is ready for discharge pending her SNF placement. Hospitalist is in agreement with this. Recommend SNF placement following her discharge as there are legitimate concerns given her prior history of abuse and toxicology screening to provide adequate postoperative pain control in a controlled setting, in addition to her strict nonweightbearing status to the left lower extremity. Discussed with licensed master social worker today about her pending placement, currently awaiting insurance coverage prior to placement. Awaiting SNF placement. Upon discharge to her SNF she is to be seen by me in office in 3 to 5 days for continued postoperative care. Please do not hesitate to call for any questions or concerns. Podiatry will continue to follow in postoperative period. Expecting to stay for pain control postoperatively until placement can be made. Reji Bolton Jr. D.P.M. [facility] [phone] Note: [employer] speech recognition manager mountain software was used to create portions of this document. Sound-alike and misspelled words, as well as other manager mountain errors may be contained in the documentation.
[2022-05-07 21:33] VITALS: BP 123/65; PULSE 98; RESP 16; TEMP 36.8; O2SAT 97
[2022-05-08] MEDS: HYDROmorphone 0.5 MG/0.5 ML SYRINGE IV (00:48)
[2022-05-08] MEDS: Acetaminophen 500 MG Tablet 1000 MG PO ×4 (00:49→23:19)
[2022-05-08 02:00] VITALS: BP 130/74; PULSE 102; RESP 18; TEMP 36.6; O2SAT 94
[2022-05-08] MEDS: Ibuprofen 600 MG Tablet PO ×3 (05:29→22:15)
[2022-05-08 06:51] LABS: Absolute Lymphocyte Count 2.03 X10^3/uL (0.83-4.51); Absolute Neutrophil Count 5.2 X10^3/uL (2.0-7.7); Basophil# 0.04 X10^3/uL; Basophil% 0.5 % (0-1); Eosinophil# 0.19 X10^3/uL; Eosinophils% 2.2 % (0-5); Hematocrit 36.1 % (37-47); Lymphocyte # 2.03 X10^3/ul (0.83-4.51); Lymphocyte % 23.1 % (19-41); Mean Corp Hgb Conc 33.2 g/dL (32-36); Mean Corpuscular Hgb 31.5 pg (27.0-32.0); Mean Corpuscular Volume 94.8 fL (81-99); Mean Platelet Vol. 11.7 fl (6.2-12.0); Monocyte# 1.27 X10^3/uL; Monocyte% 14.5 % (0-10); NRBC Flagged by Analyzer 0 % (0-5); Neutrophil % 59.1 % (47-70); Platelet Count 221 K/mm3 (150-450); RBC Distribution Width CV 12.7 % (11.6-14.6); RBC Distribution Width SD 44.5 fl (35.1-43.9); Red Blood Count 3.81 M/mm3 (4.2-5.4); White Blood Count 8.8 K/mm3 (4.4-11.0)
[2022-05-08 07:22] LABS: Anion Gap 7 (5-15); BUN 26 mg/dL (7-18); BUN/Creat Ratio 53.6 RATIO (10-20); Calcium,Total 8.9 mg/dL (8.5-10.1); Chloride 100 mmol/L (98-107); Creatinine, Serum 0.48 mg/dL (0.55-1.02); EST Glomerular Filtration Rate 148 mL/min (>60); Est Glom Filt Rate - Afr Amer 179 mL/min (>60); Estimated Creatinine Clearance 135.27 ml/min; Glucose 116 mg/dL (74-106); Sodium Level 136 mmol/L (136-145)
[2022-05-08] MEDS: Folic Acid 1 MG Tablet PO (08:03)
[2022-05-08] MEDS: Thiamine Hydrochloride 100 MG Tablet PO (08:03)
[2022-05-08] MEDS: hydroCHLOROthiazide 12.5mg 12.5 MG PO (08:03)
[2022-05-08] MEDS: Lisinopril 10 MG Tablet PO (08:03)
[2022-05-08] MEDS: Pantoprazole Sodium 40 MG Tablet PO (08:04)
[2022-05-08] MEDS: Multivitamins,Therapeutic Tablet 1 TABLET PO (08:04)
[2022-05-08 08:28] VITALS: BP 123/72; PULSE 96; RESP 16; TEMP 36.8; O2SAT 99
[2022-05-08 12:41] VITALS: BP 110/69; PULSE 108; RESP 16; TEMP 36.7; O2SAT 100
[2022-05-08] MEDS: oxyCODONE 5 MG Tablet PO ×3 (13:10→22:15)
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
[2022-05-08 16:30] VITALS: BP 119/86; PULSE 89; RESP 16; TEMP 36.8; O2SAT 100
[2022-05-08 22:09] VITALS: BP 125/81; PULSE 103; RESP 18; TEMP 36.3; O2SAT 97
[2022-05-09 04:45] VITALS: BP 122/82; PULSE 97; RESP 18; TEMP 36.9; O2SAT 98
[2022-05-09] MEDS: Ibuprofen 600 MG Tablet PO ×3 (05:06→21:48)
[2022-05-09] MEDS: Thiamine Hydrochloride 100 MG Tablet PO (07:53)
[2022-05-09] MEDS: Acetaminophen 500 MG Tablet 1000 MG PO ×3 (07:53→23:42)
[2022-05-09] MEDS: Folic Acid 1 MG Tablet PO (07:54)
[2022-05-09] MEDS: Multivitamins,Therapeutic Tablet 1 TABLET PO (07:54)
[2022-05-09] MEDS: Pantoprazole Sodium 40 MG Tablet PO (07:54)
[2022-05-09] MEDS: Lisinopril 10 MG Tablet PO (07:55)
[2022-05-09] MEDS: hydroCHLOROthiazide 12.5mg 12.5 MG PO (07:55)
[2022-05-09 08:56] VITALS: BP 112/92; PULSE 76; RESP 16; TEMP 37.1; O2SAT 98
[2022-05-09] MEDS: oxyCODONE 5 MG Tablet PO ×2 (10:33→16:17)
[2022-05-09 11:21] VITALS: BP 119/89; PULSE 65; RESP 16; TEMP 36.8; O2SAT 94
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
[2022-05-09] MEDS: LORazepam 1 MG Tablet 2 MG PO (14:47)
[2022-05-09 15:25] VITALS: BP 133/94; PULSE 94; RESP 16; TEMP 37.1; O2SAT 100
[2022-05-09 21:45] VITALS: BP 111/81; PULSE 79; RESP 18; TEMP 37.3; O2SAT 98
[2022-05-10 04:15] VITALS: BP 109/72; PULSE 84; RESP 18; TEMP 37.2; O2SAT 97
[2022-05-10] MEDS: Ibuprofen 600 MG Tablet PO ×3 (04:44→20:55)
[2022-05-10 08:28] VITALS: BP 107/74; PULSE 89; RESP 16; TEMP 36.7; O2SAT 100
[2022-05-10] MEDS: Thiamine Hydrochloride 100 MG Tablet PO (08:37)
[2022-05-10] MEDS: Pantoprazole Sodium 40 MG Tablet PO (08:37)
[2022-05-10] MEDS: Lisinopril 10 MG Tablet PO (08:38)
[2022-05-10] MEDS: Folic Acid 1 MG Tablet PO (08:38)
[2022-05-10] MEDS: hydroCHLOROthiazide 12.5mg 12.5 MG PO (08:38)
[2022-05-10] MEDS: Acetaminophen 500 MG Tablet 1000 MG PO ×3 (08:38→22:48)
[2022-05-10] MEDS: Multivitamins,Therapeutic Tablet 1 TABLET PO (08:38)
[2022-05-10] MEDS: oxyCODONE 5 MG Tablet PO (08:43)
--- NOTE | 2022-05-10 11:06 | CASEMGMT ---
Social Work SW received message from Narinder Simmons. Pt has been accepted. SW sent updated clinicals for precert to be started. SW in to inform pt of accepted. Pt voiced understanding. PLAN: Narinder Simmons, Pending precert NOAM Aguirre
--- NOTE | 2022-05-10 13:22 | WOUNDNOTE ---
Assisted Dr Bolton in applying a hard cast to the left lower leg. pt tolerated well. pt awaiting precert to [facility].
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
[2022-05-10 14:39] VITALS: BP 107/77; PULSE 87; RESP 16; TEMP 36.6; O2SAT 94
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
[2022-05-10 20:52] VITALS: BP 102/82; PULSE 104; RESP 18; TEMP 36.8; O2SAT 99
[2022-05-10] MEDS: MELATONIN 10 MG TABLET PO (22:48)
[2022-05-11 03:00] VITALS: BP 121/89; PULSE 94; RESP 18; TEMP 36.9; O2SAT 99
[2022-05-11] MEDS: Ibuprofen 600 MG Tablet PO ×3 (05:05→21:31)
[2022-05-11 08:35] VITALS: BP 124/84; PULSE 90; RESP 16; TEMP 36.6; O2SAT 100
[2022-05-11] MEDS: Acetaminophen 500 MG Tablet 1000 MG PO ×3 (08:37→23:13)
[2022-05-11] MEDS: Folic Acid 1 MG Tablet PO (08:37)
[2022-05-11] MEDS: Thiamine Hydrochloride 100 MG Tablet PO (08:37)
[2022-05-11] MEDS: Multivitamins,Therapeutic Tablet 1 TABLET PO (08:37)
[2022-05-11] MEDS: Pantoprazole Sodium 40 MG Tablet PO (08:38)
[2022-05-11 11:25] VITALS: BP 132/91; PULSE 88
[2022-05-11] MEDS: Lisinopril 10 MG Tablet PO (11:26)
[2022-05-11] MEDS: hydroCHLOROthiazide 12.5mg 12.5 MG PO (11:26)
--- NOTE | 2022-05-11 13:27 | CASEMGMT ---
Social Work Bridgett Simmons reached out. Precert is still pending. PLAN: Narinder Simmons, pending precert. NOAM Aguirre
--- NOTE | 2022-05-11 14:43 | CASEMGMT ---
Social work Pt requested to speak with SW. Pt shared was supposed to go to court yesterday and completely forgot. Pt asked SW for help to contact court and inform that pt was unable to attend due to being in the hospital. SW called [facility] court and informed that pt was admitted to [facility] and had just had surgery. check services clerk informed that pt would need to fax a Motion of continuation with the following details (Case Number, Pt name and mailing address, The request and the reason for it) Post Adoption Coordinator also explained pt would need to fax this letter to the court and the prosecutor on the case, then provided those fax numbers. SW took down this information. SW attempted to share info with pt, however pt was sleeping. RUBY will check back with pt later this day. NOAM Aguirre
[2022-05-11 15:49] VITALS: BP 127/87; PULSE 97; RESP 16; TEMP 37.1; O2SAT 100
[2022-05-11 21:29] VITALS: BP 121/91; PULSE 95; RESP 18; TEMP 36.7; O2SAT 100
[2022-05-11] MEDS: MELATONIN 10 MG TABLET PO (21:31)
[2022-05-12 04:15] VITALS: BP 123/83; PULSE 88; RESP 18; TEMP 36.6; O2SAT 100
[2022-05-12] MEDS: Ibuprofen 600 MG Tablet PO ×2 (04:45→14:22)
[2022-05-12 08:58] VITALS: BP 129/72; PULSE 90; RESP 16; TEMP 36.5; O2SAT 100
[2022-05-12] MEDS: Folic Acid 1 MG Tablet PO (09:03)
[2022-05-12] MEDS: hydroCHLOROthiazide 12.5mg 12.5 MG PO (09:03)
[2022-05-12] MEDS: Lisinopril 10 MG Tablet PO (09:03)
[2022-05-12] MEDS: Multivitamins,Therapeutic Tablet 1 TABLET PO (09:03)
[2022-05-12] MEDS: Acetaminophen 500 MG Tablet 1000 MG PO (09:03)
[2022-05-12] MEDS: Thiamine Hydrochloride 100 MG Tablet PO (09:03)
[2022-05-12] MEDS: Pantoprazole Sodium 40 MG Tablet PO (09:04)
--- NOTE | 2022-05-12 09:51 | CASEMGMT ---
Addendum entered by Marci Fields 05/12/22 10:41: Pt also spoke to SW about speaking to [facility] treatment navigator. SW informed Dominique De La O, customer advisor specialist, that pt was ready to speak about treatment. Original Note: Social Work SW in to speak with pt regarding pt request from yesterday regarding assistance with calling court to inform of being admitted to [facility]. SW explained the remittance clerk at the court had given SW instructions on how to move forward and that a motion of continuance needs filed. RUBY explained a note with the requested information would need faxed and SW typed this information up already. SW showed pt the information and pt reviewed. Pt gave verbal consent for SW to send the information, via fax, to [facility] Court and the prosecutor, on pt's behalf. RUBY faxed this information at 9:48 am this day. NOAM Aguirre
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
[2022-05-12 13:35] VITALS: BP 127/72; PULSE 98; RESP 18; TEMP 36.7; O2SAT 100
--- NOTE | 2022-05-12 13:58 | CASEMGMT ---
Social Work Dominique De La O, loan servicing specialist, informed SW that pt now requesting residential treatment at a drug and alcohol facility. Dominique informed would work on trying to find pt a placement. Later this day placement has been secured for [facility] in [place], [place]. [facility] to send transportation for pt and will be sending [employer] to pick pt up upon discharge. This SW will not cancel referral to [facility] until pt completely discharges, as the transportation for pt to go to [facility] has been difficult. [facility] floor has been receiving automated phone calls from er with several different plans on berry picker. RUBY also spoke to a nurse from [facility] regarding pt discharge plan. RUBY informed pt has two plans and no definitive answer at the moment on which one will work out. Nurse was concerned with pt being discharged as pt is homeless. RUBY informed nurse pt will be going to SNF or residential treatment. NOAM Aguirre
--- NOTE | 2022-05-12 14:53 | PHA.DC.MR ---
Pharmacy Service has performed discharge medication reconciliation for this patient. The patient's discharge medication list was reviewed for discrepancies and discrepancies were resolved. Home Medications acetaminophen 650 mg tablet,extended release (8 Hour Pain Reliever) 650 mg PO Q8H PRN pain 30 days #60 tabs 05/10/22
--- NOTE | 2022-05-13 09:30 | CASEMGMT ---
Social Work Phone call to Desiree at [facility] and informed referral can be cancelled. NOAM Tong
== END 2022-05-12 15:05 | DRG 313 ==
LOC: ED 18:52 → MS3 05-03 07:14
PROVIDERS: Hospitalist; Internal Medicine; Admitting Provider Student in an Organized Health Care Education/Training Program; Emergency Provider Emergency Medicine; PCP Nurse Practitioner Family; Visit Provider Student in an Organized Health Care Education/Training Program
PROC: 0QSM04Z Reposition Left Tarsal with Internal Fixation Device, Open Approach (ICD-10-PCS; principal; 2022-05-04 07:10)
DX: S82.52XA Displaced fracture of medial malleolus of left tibia, initial encounter for closed fracture (principal); E87.1 Hypo-osmolality and hyponatremia; F31.9 Bipolar disorder, unspecified; F10.20 Alcohol dependence, uncomplicated; F17.210 Nicotine dependence, cigarettes, uncomplicated; I10 Essential (primary) hypertension; S92.122A Displaced fracture of body of left talus, initial encounter for closed fracture; E87.6 Hypokalemia; I97.52 Accidental puncture and laceration of a circulatory system organ or structure during other procedure; S85.31 Laceration of greater saphenous vein at lower leg level; V47.6XXA Car passenger injured in collision with fixed or stationary object in traffic accident, initial encounter; Y92.234 Operating room of hospital as the place of occurrence of the external cause
CPT/HCPCS: 36415; 73600; 73610; 73630; 73700; 76000; 80048; 80307; 81025; 83735; 84100; 85025; 93005; 97110; 97116; 97162; 97530; 99152; 99153; 99285; C1713; J7030; J7120; A4216; J2405

== ENCOUNTER 2022-06-10 15:40 | Inpatient (IN) | payer MEDICAID, SELFPAY ==
[2022-06-10 15:41] VITALS: BP 143/88; PULSE 107; RESP 19; TEMP 36.4; O2SAT 91
[2022-06-10 16:35] VITALS: BP 176/108; PULSE 84; RESP 18; TEMP 36.6; O2SAT 100; BMI 21.1
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
[2022-06-10 17:08] LABS: Absolute Lymphocyte Count 2.08 X10^3/uL (0.83-4.51); Absolute Neutrophil Count 5.6 X10^3/uL (2.0-7.7); Basophil# 0.03 X10^3/uL; Basophil% 0.4 % (0-1); Eosinophil# 0.15 X10^3/uL; Eosinophils% 1.8 % (0-5); Hematocrit 42.1 % (37-47); Hemoglobin 13.2 g/dL (12.0-15.0); Lymphocyte # 2.08 X10^3/ul (0.83-4.51); Lymphocyte % 24.6 % (19-41); Mean Corp Hgb Conc 31.4 g/dL (32-36); Mean Corpuscular Hgb 31.4 pg (27.0-32.0); Mean Platelet Vol. 11.1 fl (6.2-12.0); Monocyte% 7.1 % (0-10); NRBC Flagged by Analyzer 0 % (0-5); Neutrophil # 5.59 X10^3/uL (2.7-7.7); Neutrophil % 65.9 % (47-70); Platelet Count 271 K/mm3 (150-450); RBC Distribution Width CV 13.7 % (11.6-14.6); RBC Distribution Width SD 50.3 fl (35.1-43.9); Red Blood Count 4.21 M/mm3 (4.2-5.4); White Blood Count 8.5 K/mm3 (4.4-11.0)
[2022-06-10 17:15] LABS: Erythrocyte Sedimentation Rate 10 mm/hr (0-30)
[2022-06-10] MEDS: Morphine 4 MG/ML Syringe IV (17:16)
[2022-06-10 17:19] LABS: Anion Gap 5 (5-15); BUN 19 mg/dL (7-18); BUN/Creat Ratio 36.3 RATIO (10-20); Calcium,Total 8.3 mg/dL (8.5-10.1); Chloride 111 mmol/L (98-107); Creatinine, Serum 0.52 mg/dL (0.55-1.02); EST Glomerular Filtration Rate 136 mL/min (>60); Est Glom Filt Rate - Afr Amer 164 mL/min (>60); Estimated Creatinine Clearance 134.55 ml/min; Glucose 88 mg/dL (74-106); Potassium 5.5 mmol/L (3.5-5.1); Sodium Level 136 mmol/L (136-145)
--- NOTE | 2022-06-10 17:30 | RAD_ITS ---
INDICATION: Pain/infection EXAMINATION/TECHNIQUE: X-RAY - LEFT XR Ankle Min 3 Views 3 VIEWS COMPARISON: 05/04/2022 RAD/Ankle min 3 Views IMPRESSION: There is fullness in the pre-Achilles triangle and circumferential soft tissue swelling, which could be seen in infection. No obvious bone erosion or destruction. Tibial and talar ORIF in near-anatomic alignment without lucency to suggest loosening. Electronically Signed: Rodney Mace MD at 17:43 EST ,
--- NOTE | 2022-06-10 17:55 | CM.ED ---
Social Work Note Referral Source: Case Find Referral Reason: No PCP SW met with patient and introduced herself and role as [facility]. Patient agreeable to speak with social media campaign manager. SW inquired about patient's insurance and current PCP. Patient verified insurance and reports having a PCP, Dr. Johnson in [place]. Patient declined additional list of PCP accepting patients. Patient inquired about housing resources as well as food while in ED. SW to follow up with RN regarding food and provide patient with resources. SW met with RN and discussed patient's request for food, RN to review patient's testing with MD and will follow up with patient when she is able to order food. SW provided patient with [employer] resource list, highlighting housing resources. Patient reports she is on a wait list for [employer] support. SW instructed patient to contact [employer] to request a list of places for rent. SW also provided patient with homelessness navigator contact information. Patient was receptive towards list and voiced no other concerns. SW remains available if needs arise. Shweta Omalley PHARMACOGNOSIST, DEMETRIO
[2022-06-10 17:58] VITALS: BP 162/100; PULSE 75; RESP 16; TEMP 37; O2SAT 100
[2022-06-10] MEDS: Vancomycin IV 1,000 MG/200 ML BAG 200 MG IV (18:54)
[2022-06-10 19:38] VITALS: BP 162/100; PULSE 75; RESP 16; TEMP 37; O2SAT 100
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
[2022-06-10 21:09] VITALS: BMI 19.7
[2022-06-10 21:13] VITALS: BP 149/98; PULSE 81; RESP 18; TEMP 36.8; O2SAT 98
[2022-06-10 21:14] VITALS: BP 149/98; PULSE 81; RESP 18; TEMP 36.8; O2SAT 98
[2022-06-10] MEDS: Acetaminophen 325 MG Tablet 650 MG PO (23:11)
[2022-06-10] MEDS: 0.9% Saline Lock 10 ML Syringe IV (23:11)
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
--- NOTE | 2022-06-10 23:52 | PCM.RX.CS ---
Consult Pharmacy has been consulted to manage selected antiobiotic: Vancomycin Type of Consult: New start Suspected Infection: Skin/Soft tissue Prior Doses of Antibiotics Received/Current Regimen: Medications Vancomycin HCl (Vancomycin) 1,000 mg in 200 mls @ 200 mls/hr IV Q12H SYLVIE Discontinued Medications Vancomycin HCl (Vancomycin) 1,000 mg in 200 mls @ 200 mls/hr 15 mg/kg (1000 mg) IV X1 ONE Stop: 06/10/22 18:06 Last Admin: 06/10/22 19:58 Dose: Infused Labs: Sodium 136 mmol/L (136-145) 06/10/22 16:48 Potassium 5.5 mmol/L (3.5-5.1) H 06/10/22 16:48 Chloride 111 mmol/L (98-107) H 06/10/22 16:48 Carbon Dioxide 20.0 mmol/L (21.0-32.0) L 06/10/22 16:48 Anion Gap 5 (5-15) 06/10/22 16:48 BUN 19 mg/dL (7-18) H 06/10/22 16:48 Creatinine 0.52 mg/dL (0.55-1.02) L 06/10/22 16:48 Est GFR (MDRD) Af Amer 164 mL/min (>60) 06/10/22 16:48 Est GFR (MDRD) Non-Af 136 mL/min (>60) 06/10/22 16:48 BUN/Creatinine Ratio 36.3 RATIO (10-20) H 06/10/22 16:48 Glucose 88 mg/dL (74-106) 06/10/22 16:48 Weight used for dosin.1 kg Estimated Creatinine Clearance: 135 Goal Trough: 10-15 mcg/mL Pharmacy Plan for Drug Dosing: Pharmacy Service will continue to monitor and adjust dosing as required. Follow-Up Labs: Trough Vancomycin Labs to be done on [date and time ordered]: 06/12/22 @5056
[2022-06-11] VITALS (12 sets, daily range): BP systolic 131–149; BP diastolic 82–99; PULSE 72–112; RESP 15–20; TEMP 36.5–39.3; O2SAT 93–99; BMI 19.8
--- NOTE | 2022-06-11 | ABS_PTH ---
PATIENT: FARHAN ANDREWS LOC: [facility] U#:[id number] AGE/SX: 42/F ROOM: [facility] RE06/10/[address]: Dr. Girish Reddy MD : 1980 BED: 1 DIS: 06/16/2022 SPEC #: [id number] RECD: 06/11/22 16:51 STATUS: OSCAR REQ #: [id number] ADA: 06/11/22 00:[address]: Reji Bolton DEPT: SURGICAL PATHOLOGY RECD BY: Alberto Roberts ENTERED: 06/14/22 08:39 SP TYPE: Abscess OTHR DR: MD Dr. Judith Lopez MD Dr. Autumn L White, MD Dr. Bradley Barone, MD Dr. Mary Catherine Sementi, MD Leonel Carney Dr., MD Dr. Eric Jopperi, MD Dr. Kael Hope Dr., MD Dr. James Mooney, MD Dr. Jonathan Vogt, DO Dr. Sarai Dukes, JESSICA Rosado Dr., Dr., MD Dr. Michael Chávez Dr., MD Dr. Prakash Chand, MD Dr. Paul Nielsen, MD Dr. Paige Pierce, MD Dr. Ryan Burkholder, MD Dr. Robert Leininger, MD No Primary Care Phys LIZ Flynn Tissues: Leg, NOS Procedures: Surgery Specimen Level III Comments: @ Ordering doctor for SUIII edited from to @ by RGOOD at 06/14/22 3035 @ Submitting doctor edited from to @ by RGOOD at 06/14/22 1428 HEADER OPERATION: Wound debridement with application of wound care products PRE-OP DIAGNOSIS: Left medial malleolus wound TISSUE SUBMITTED: Left foot wound tissue MICROSCOPIC DIAGNOSIS Left foot wound tissue, excision: Extensive necrosis, acute inflammation and abscess formation. SJ:juana 06/15/2022 MICROSCOPIC DESCRIPTION Slides are reviewed. GROSS DESCRIPTION Received in fixative is one container labeled with the patient's name and designated left foot wound tissue. The specimen consists of two pieces of brownish soft tissue measuring in aggregate 2.0 x 2.0 x 0.4 cm. The larger piece is serially sectioned. The entire specimen is submitted in one cassette. / CHANCE:juana 06/14/2022 TC:2 CPT: 99624
[2022-06-11] MEDS: 0.9% Normal Saline 1,000 ML 15 ML IV ×2 (00:16→12:40)
[2022-06-11] MEDS: Sodium Polystyrene Sulfonate 15 GM/60 ML UDC 30 GM PO (00:16)
[2022-06-11] MEDS: Chlorthalidone 50 MG Tablet 12.5 MG PO (01:41)
[2022-06-11] MEDS: Vancomycin IV 1,000 MG/200 ML BAG 200 MG IV ×2 (06:06→17:41)
[2022-06-11 06:23] LABS: Absolute Lymphocyte Count 0.97 X10^3/uL (0.83-4.51); Absolute Neutrophil Count 3.3 X10^3/uL (2.0-7.7); Basophil# 0.03 X10^3/uL; Basophil% 0.6 % (0-1); Eosinophils% 2.1 % (0-5); Hematocrit 37.1 % (37-47); Hemoglobin 12.1 g/dL (12.0-15.0); Lymphocyte # 0.97 X10^3/ul (0.83-4.51); Lymphocyte % 20.4 % (19-41); Mean Corp Hgb Conc 32.6 g/dL (32-36); Mean Corpuscular Hgb 30.7 pg (27.0-32.0); Mean Corpuscular Volume 94.2 fL (81-99); Mean Platelet Vol. 10.6 fl (6.2-12.0); Monocyte# 0.33 X10^3/uL; Monocyte% 6.9 % (0-10); NRBC Flagged by Analyzer 0 % (0-5); Neutrophil % 69.6 % (47-70); Platelet Count 196 K/mm3 (150-450); RBC Distribution Width CV 13.4 % (11.6-14.6); RBC Distribution Width SD 46.1 fl (35.1-43.9); Red Blood Count 3.94 M/mm3 (4.2-5.4); White Blood Count 4.8 K/mm3 (4.4-11.0)
[2022-06-11 06:43] LABS: ALB/GLOB Ratio 0.8 RATIO (0.9-2.4); AST(SGOT) 105 U/L (15-37); Alanine Aminotransfer ALT/SGPT 67 U/L (13-56); Albumin, Serum 2.8 g/dL (3.2-5.0); Alkaline Phosphatase 130 U/L (45-117); Anion Gap 6 (5-15); BUN 9 mg/dL (7-18); BUN/Creat Ratio 16.8 RATIO (10-20); Calcium,Total 7.9 mg/dL (8.5-10.1); Chloride 108 mmol/L (98-107); Creatinine, Serum 0.54 mg/dL (0.55-1.02); EST Glomerular Filtration Rate 132 mL/min (>60); Est Glom Filt Rate - Afr Amer 160 mL/min (>60); Estimated Creatinine Clearance 121.09 ml/min; Globulin 3.6 g/dL (2.2-4.2); Glucose 113 mg/dL (74-106); Potassium 3.6 mmol/L (3.5-5.1); Protein, Total 6.4 g/dL (6.4-8.2); Sodium Level 139 mmol/L (136-145)
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
--- NOTE | 2022-06-11 10:57 | WOUNDNOTE ---
Talked with Dr Bolton. states he plans to take patient down for surgical debridement later today so no need to remove dressing this am. will follow as needed post op.
--- NOTE | 2022-06-11 12:12 | NURSING ---
transferred off floor via surgery staff at this time
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
[2022-06-11] MEDS: Lactated Ringers 1,000 ML 15 ML IV ×2 (14:00→16:23)
[2022-06-11] MEDS: Cefazolin 2 GM in 0.9% Normal Saline 100 ML IV (14:15)
[2022-06-11] MEDS: Bupivacaine 0.25% 30 ML Vial (15:00)
[2022-06-11] MEDS: Lidocaine 1% (20 ml mdv) 20 ML Vial (15:00)
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
[2022-06-11] MEDS: Acetaminophen 325 MG Tablet 650 MG PO (21:54)
[2022-06-11] MEDS: Ondansetron 4 MG/2 ML Vial IV (22:23)
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
[2022-06-12 04:00] VITALS: BP 144/92; PULSE 91; RESP 16; TEMP 38.1; O2SAT 95
[2022-06-12 05:00] VITALS: BP 144/92; PULSE 92; RESP 16; TEMP 38.1; O2SAT 95
[2022-06-12] MEDS: Vancomycin IV 1,000 MG/200 ML BAG 200 MG IV ×2 (05:28→18:10)
[2022-06-12] MEDS: Acetaminophen 325 MG Tablet 650 MG PO (05:38)
[2022-06-12 07:26] VITALS: BP 135/83; PULSE 83; RESP 16; TEMP 37.7; O2SAT 97
[2022-06-12] MEDS: Juven (unflavored) Packet 1 PACKET PO (07:30)
[2022-06-12] MEDS: Chlorthalidone 50 MG Tablet 12.5 MG PO (07:30)
[2022-06-12 07:48] LABS: Absolute Neutrophil Count 2.2 X10^3/uL (2.0-7.7); Basophil# 0.01 X10^3/uL; Basophil% 0.3 % (0-1); Hematocrit 35.4 % (37-47); Hemoglobin 11.8 g/dL (12.0-15.0); Lymphocyte % 15.9 % (19-41); Mean Corp Hgb Conc 33.3 g/dL (32-36); Mean Corpuscular Volume 92.9 fL (81-99); Mean Platelet Vol. 11.3 fl (6.2-12.0); Monocyte# 0.37 X10^3/uL; Monocyte% 11.7 % (0-10); NRBC Flagged by Analyzer 0 % (0-5); Neutrophil # 2.24 X10^3/uL (2.7-7.7); Neutrophil % 71.1 % (47-70); POSITIVE DIFFERENTIAL YES; Platelet Count 161 K/mm3 (150-450); RBC Distribution Width CV 13.5 % (11.6-14.6); RBC Distribution Width SD 46.2 fl (35.1-43.9); Red Blood Count 3.81 M/mm3 (4.2-5.4); White Blood Count 3.2 K/mm3 (4.4-11.0)
[2022-06-12 07:56] LABS: Differential Indicated SCAN CRITERIA MET
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
[2022-06-12 08:50] LABS: Vancomycin, Trough Level 44.5 ug/mL (5.0-15.0)
[2022-06-12 08:52] LABS: ALB/GLOB Ratio 0.7 RATIO (0.9-2.4); AST(SGOT) 227 U/L (15-37); Alanine Aminotransfer ALT/SGPT 142 U/L (13-56); Albumin, Serum 2.7 g/dL (3.2-5.0); Alkaline Phosphatase 262 U/L (45-117); Anion Gap 6 (5-15); BUN 5 mg/dL (7-18); BUN/Creat Ratio 8.7 RATIO (10-20); Calcium,Total 8.2 mg/dL (8.5-10.1); Chloride 100 mmol/L (98-107); Creatinine, Serum 0.57 mg/dL (0.55-1.02); EST Glomerular Filtration Rate 123 mL/min (>60); Est Glom Filt Rate - Afr Amer 148 mL/min (>60); Estimated Creatinine Clearance 114.71 ml/min; Globulin 3.8 g/dL (2.2-4.2); Glucose 147 mg/dL (74-106); Potassium 3.1 mmol/L (3.5-5.1); Protein, Total 6.5 g/dL (6.4-8.2); Sodium Level 134 mmol/L (136-145)
--- NOTE | 2022-06-12 09:04 | PCM.RX.CS ---
Consult Pharmacy has been consulted to manage selected antiobiotic: Vancomycin Type of Consult: Follow-up Suspected Infection: Skin/Soft tissue Labs: Sodium 134 mmol/L (136-145) L 06/12/22 06:46 Potassium 3.1 mmol/L (3.5-5.1) L 06/12/22 06:46 Chloride 100 mmol/L (98-107) 06/12/22 06:46 Carbon Dioxide 28.0 mmol/L (21.0-32.0) 06/12/22 06:46 Anion Gap 6 (5-15) 06/12/22 06:46 BUN 5 mg/dL (7-18) L 06/12/22 06:46 Creatinine 0.57 mg/dL (0.55-1.02) 06/12/22 06:46 Est GFR (MDRD) Af Amer 148 mL/min (>60) 06/12/22 06:46 Est GFR (MDRD) Non-Af 123 mL/min (>60) 06/12/22 06:46 BUN/Creatinine Ratio 8.7 RATIO (10-20) L 06/12/22 06:46 Glucose 147 mg/dL (74-106) H 06/12/22 06:46 Vancomycin Trough 44.5 ug/mL (5.0-15.0) H 06/12/22 06:46 Pharmacy Plan for Drug Dosing: VANCOMYCIN LEVEL RECEIVED Current Vancomycin Dose: 1000MG Q12 Number of Doses Received: 4 Vancomycin Level: 44.5 MG/DL Hours Since Last Dose: 1 Renal Function: SCR 0.57, CRCL 114 ML/MIN Renal Function Trend: STABLE Lab/Micro: WOUND CX PENDING Vancomycin Plan/Comments: 0700 DOSE WAS HUNG TOO EARLY AT 0528, SO 0646 TROUGH WAS 1 HOUR AFTER DOSE WAS ALREADY HUNG, THEREFORE TROUGH OF 44.5 MG/DL IS INACCURATE. WILL RESCHEDULE ANOTHER TROUGH FOR TONIGHT AT 1730 (12 HOURS AFTER LAST DOSE). Pending Level: 06/12/22 @ 1730 Pharmacy Service will continue to monitor and adjust dosing as required.
[2022-06-12 09:24] LABS: Differential Comment SCANNED
[2022-06-12 09:33] LABS: HIV - WCH Non-Reactive (Nonreactive)
[2022-06-12] MEDS: Potassium Chloride Oral Tablet 20 MEQ 60 MEQ PO (11:36)
[2022-06-12] MEDS: Ketorolac 30 MG/ML Syringe IV ×2 (12:18→22:35)
[2022-06-12 13:36] VITALS: BP 141/85; PULSE 80; RESP 16; TEMP 37.1; O2SAT 99
--- NOTE | 2022-06-12 15:07 | US_ITS ---
EXAM: US ABDOMEN LIMITED, RIGHT UPPER QUADRANT CLINICAL INDICATION: Transaminitis TECHNIQUE: Real-time ultrasound of the right upper quadrant with image documentation. This report was created using Squee report generation technology. COMPARISON: None. FINDINGS: LIVER: Increased echogenicity of the hepatic parenchyma. No intrahepatic biliary ductal dilation. GALLBLADDER: Cholecystectomy. COMMON BILE DUCT: Mildly dilated, measuring 10 mm. PANCREAS: Unremarkable as visualized. No focal abnormality is demonstrated in the pancreas. No pancreatic ductal dilatation. RIGHT KIDNEY: Unremarkable. There is no hydronephrosis. No shadowing calculus. No focal lesion or perinephric collection is demonstrated. US/Liver IMPRESSION: 1. Mild dilation of the common bile duct measuring up to 10 mm. This may be secondary to previous cholecystectomy, but correlate for any laboratory evidence of acute biliary obstruction. 2. Fatty infiltration of the liver. Electronically Signed: Holland Donahue MD at 0:25 EST ,
[2022-06-12 18:17] LABS: Vancomycin, Trough Level 7.8 ug/mL (5.0-15.0)
--- NOTE | 2022-06-12 18:25 | PCM.RX.CS ---
Consult Pharmacy has been consulted to manage selected antiobiotic: Vancomycin Type of Consult: Follow-up Suspected Infection: Skin/Soft tissue Labs: Sodium 134 mmol/L (136-145) L 06/12/22 06:46 Potassium 3.1 mmol/L (3.5-5.1) L 06/12/22 06:46 Chloride 100 mmol/L (98-107) 06/12/22 06:46 Carbon Dioxide 28.0 mmol/L (21.0-32.0) 06/12/22 06:46 Anion Gap 6 (5-15) 06/12/22 06:46 BUN 5 mg/dL (7-18) L 06/12/22 06:46 Creatinine 0.57 mg/dL (0.55-1.02) 06/12/22 06:46 Est GFR (MDRD) Af Amer 148 mL/min (>60) 06/12/22 06:46 Est GFR (MDRD) Non-Af 123 mL/min (>60) 06/12/22 06:46 BUN/Creatinine Ratio 8.7 RATIO (10-20) L 06/12/22 06:46 Glucose 147 mg/dL (74-106) H 06/12/22 06:46 Vancomycin Trough 7.8 ug/mL (5.0-15.0) 06/12/22 17:47 Microbiology: Microbiology 06/11/22 15:04 Wound - Left Foot Gram Stain - Final 06/11/22 15:04 Wound - Left Foot Wound Culture - Preliminary Gram negative zain Goal Trough: 10-15 mcg/mL Pharmacy Plan for Drug Dosing: VANCOMYCIN LEVEL RECEIVED Current Vancomycin Dose: 1000MG Q12 Number of Doses Received: 5 Vancomycin Level: 7.8 MG/DL Hours Since Last Dose: 12 Renal Function: SCR 0.57 ML/MIN, CRCL 114 ML/MIN Renal Function Trend: STABLE Lab/Micro: WOUND CX WITH PRELIM GNR Vancomycin Plan/Comments: 12 HOUR TROUGH IS SUBTHERAPEUTIC AT 7.8 MG/DL (GOAL 10-15). WILL INCREASE DOSE TO 1500MG. 1900 DOSE ALREADY RUNNING, WILL START NEW DOSE TOMORROW AM @ 0600 AND GET A TROUGH PRIOR TO 4TH DOSE OF NEW REGIMEN. Pending Level: 06/14/22 @ 1730 Pharmacy Service will continue to monitor and adjust dosing as required.
[2022-06-12 20:00] VITALS: BP 152/98; PULSE 89; RESP 16; TEMP 38.8; O2SAT 94
--- NOTE | 2022-06-12 20:15 | PCM.PROGNOTE ---
Subjective Subjective Patient seen resting bedside this afternoon. Patient does admit to some left ankle pain following procedure. Patient informs me she is staying off of the leg as she fears risk of amputation. Patient voiding without difficulty. Denies constitutional symptoms. States she is just very tired. Denies further complaints. Objective Data Objective Data Vital Signs: Vital Signs Temp Pulse Resp BP Pulse Ox O2 Del Method 101.9 F H 89 16 152/98 H 94 Room Air 06/12/22 20:00 06/12/22 20:00 06/12/22 20:00 06/12/22 20:00 06/12/22 20:00 06/12/22 20:00 Oxygen Delivery Method Room Air Weight: 57.1 kg Body Mass Index (BMI) 19.8 Intake & Output: Intake and Output for Last 24 Hours 06/10/22 06/11/22 06/12/22 23:59 23:59 23:59 Intake Total 490 / 490 1836 / 1836 589.5 / 589.5 Output Total 0 / 0 Balance 490 / 490 1836 / 1836 589.5 / 589.5 Lab / Micro Data Result Diagrams: 06/12/22 06:46 06/12/22 06:46 Labs: Laboratory Results - last 24 hr 06/12/22 06:46: Vancomycin Trough 44.5 H 06/12/22 06:46: WBC 3.2 L, RBC 3.81 L, Hgb 11.8 L, Hct 35.4 L, MCV 92.9, MCH 31.0, MCHC 33.3, RDW Std Deviation 46.2 H, RDW Coeff of Soila 13.5, Plt Count 161, MPV 11.3, Immature Gran % (Auto) 1.000 H, Neut % (Auto) 71.1 H, Lymph % (Auto) 15.9 L, [place] % (Auto) 11.7 H, Eos % (Auto) 0.0, Baso % (Auto) 0.3, Absolute Neuts (auto) 2.2, Absolute Lymphs (auto) 0.50 L, Nucleated RBC % 0, Differential Comment SCANNED, Diff Path Review August06/12/22 06:46: Sodium 134 L, Potassium 3.1 L, Chloride 100, Carbon Dioxide 28.0, Anion Gap 6, BUN 5 L, Creatinine 0.57, Estim Creat Clear Calc 114.71, Est GFR (MDRD) Af Amer 148, Est GFR (MDRD) Non-Af 123, BUN/Creatinine Ratio 8.7 L, Glucose 147 H, Calcium 8.2 L, Total Bilirubin 0.50, AST 227 H, ALT 142 H, Alkaline Phosphatase 262 H, Total Protein 6.5, Albumin 2.7 L, Globulin 3.8, Albumin/Globulin Ratio 0.7 L 06/12/22 06:46: HIV 1&2 Antibody Non-Reactive 06/12/22 17:47: Vancomycin Trough 7.8 Micro: Microbiology 06/11/22 15:04 Wound - Left Foot Gram Stain - Final 06/11/22 15:04 Wound - Left Foot Wound Culture - Preliminary Gram negative zain Physical Exam Const alert, oriented x3 and no apparent distress General Appearance: cooperative HEENT normocephalic Eyes General Eye: normal appearance of both eyes Neck General: normal visual inspection Lymph Lymphatic: no lymphadenopathy noted and no lymphedema noted Resp normal respiratory effort Cardio regular rate and regular rhythm Extremity normal capillary refill and no calf tenderness Extremity Narrative: DP and PT pulses are palpable with adequate capillary fill time. There is extensive soft tissue edema about the ankle with pain to palpation. Patient had previously undergone ORIF of the talus and medial malleolus. There is an ulceration noted to the medial ankle with healthy appearing granular layer postdebridement. Skin no rashes or lesions noted, skin turgor normal and no jaundice Wound Narrative: Ulceration noted to the medial aspect of the ankle with healthy granular layer postdebridement. No purulent drainage, mild periwound erythema, no visible abscess formation, no palpable fluctuance/bogginess, no lymphangitic streaking. Advanced wound care product/graft in place to ulceration bed anchored with Adaptic and Steri-Strips. Compression dressing intact with posterior splint applied to left lower extremity. Neuro moves all extremities Assessment & Plan Assessment/Plan (1) Polysubstance abuse: (2) Non-pressure chronic ulcer of other part of left foot with fat layer exposed: (3) Status post open reduction and internal fixation (ORIF) of fracture: (4) Infection of left foot: (5) Tobacco abuse: (6) Exposed orthopaedic hardware: PLAN: Plan Patient seen and evaluated S/p ORIF of the talus and medial malleolus. DOS 05/04/2022. POD#39 Patient was seen earlier in office 06/10/22 for the first time since her discharge from [facility] on 05/12/2022. Patient has repeatedly been scheduled and no showed for appointments. Each incident was documented in office of her no-show and multiple attempts at rescheduling. She had been instructed to go to the ED for cast removal and suture removal if she was not able to make appointment, patient never did go to the ED. In office I did examine cast which was noted to be wet and disheveled indicating she had been walking on the cast. I did ask if she has remained compliant in nonweightbearing status and patient did state she has been walking on it at times because I cannot help it. Discussed with her our previous discussion on remaining strictly nonweightbearing to the left lower extremity as she has a healing fracture of high risk of AVN. Upon visit in the office 06/10/22 cast was removed and there was noted to be a mild odor and a medial ankle ulceration noted despite well-padded BK cast. Ulceration site demonstrated thickened blackened to yellow fibrotic tissue. No purulent drainage, no palpable fluctuance/bogginess, no visible abscess. There is mild periwound erythema. Radiographs were obtained in office demonstrating extensive soft tissue edema with no underlying osseous destruction. Internal fixation intact with no signs of loosening. On 06/10/2022 WBC 8.9, CRP 5, ESR 4. Despite normal laboratory work I do feel she is running infection on top of continued postoperative edema secondary to compliance issues. WBC has trended down currently at 3.2 with no left shift. Medicine team following for medical management, they are greatly appreciated. Infectious disease on board for antibiotic recommendations. Patient is aware of our previous discussion that even though hardware is intact and no underlying osseous destruction is present that she is at risk of undergoing a BKA due to her noncompliance and returning for postoperative appointments and the current infection of the medial ankle wound. I discussed with her that attention is now on limb salvage. She voices understanding of this discussion. Patient underwent surgical debridement of the ulceration on 06/11/2022 and tissue cultures were obtained. Cultures demonstrate gram-negative zain. Patient currently on IV Vanco/Zosyn. During debridement it is noted that there was exposed hardware at the most distal aspect of the medial malleolus. Hardware providing stability to fracture site and thus not removed. Did undergo thorough washout and placement of amniotic tissue graft and axiofill graft. Advanced wound care products/graft intact to wound bed anchored with Adaptic and Steri-Strips with compression dressing. Posterior splint applied to left lower extremity and anchored with Grover wraps. Plan to leave grafting products in place to the wound bed to aid healing. Do not disturb dressing. Patient is to remain strictly nonweightbearing to the left lower extremity. Patient to elevate left lower extremity at all times of rest for edema control. Patient does have elevated liver enzymes with hepatitis panel pending. Tylenol has been stopped. Podiatry will continue to follow in-house Jr. Nabeel Murcia.P.M. [facility] [phone]
[2022-06-12] MEDS: 0.9% Saline Lock 10 ML Syringe IV (22:36)
[2022-06-12 23:44] VITALS: TEMP 38.2
[2022-06-13 01:46] VITALS: BP 133/90; PULSE 90; RESP 16; TEMP 37.3; O2SAT 94
[2022-06-13 05:08] VITALS: BP 148/112; PULSE 90; RESP 16; TEMP 37.1; O2SAT 94
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
[2022-06-13] MEDS: Juven (unflavored) Packet 1 PACKET PO ×2 (08:21→18:41)
[2022-06-13 09:49] LABS: Erythrocyte Sedimentation Rate 14 mm/hr (0-30)
[2022-06-13 09:53] LABS: Absolute Lymphocyte Count 0.78 X10^3/uL (0.83-4.51); Basophil# 0.01 X10^3/uL; Basophil% 0.5 % (0-1); Hematocrit 36.4 % (37-47); Lymphocyte # 0.78 X10^3/ul (0.83-4.51); Lymphocyte % 39.8 % (19-41); Mean Corpuscular Volume 94.1 fL (81-99); Mean Platelet Vol. 11.5 fl (6.2-12.0); Monocyte# 0.21 X10^3/uL; Monocyte% 10.7 % (0-10); NRBC Flagged by Analyzer 0 % (0-5); Neutrophil # 0.96 X10^3/uL (2.7-7.7); POSITIVE DIFFERENTIAL YES; Platelet Count 128 K/mm3 (150-450); RBC Distribution Width CV 13.3 % (11.6-14.6); Red Blood Count 3.87 M/mm3 (4.2-5.4)
[2022-06-13 09:58] LABS: Differential Indicated SCAN CRITERIA MET
[2022-06-13] MEDS: Chlorthalidone 50 MG Tablet 12.5 MG PO (10:30)
[2022-06-13 10:31] VITALS: BP 136/85; PULSE 79; RESP 16; TEMP 37.2; O2SAT 98
[2022-06-13 10:31] LABS: ALB/GLOB Ratio 0.7 RATIO (0.9-2.4); AST(SGOT) 128 U/L (15-37); Alanine Aminotransfer ALT/SGPT 103 U/L (13-56); Albumin, Serum 2.6 g/dL (3.2-5.0); Alkaline Phosphatase 192 U/L (45-117); Anion Gap 6 (5-15); BUN 11 mg/dL (7-18); BUN/Creat Ratio 13.9 RATIO (10-20); Bilirubin, Direct 0.14 mg/dL (0.00-0.30); CRP 6.29 mg/L (0.0-3.0); Calcium,Total 8.1 mg/dL (8.5-10.1); Chloride 100 mmol/L (98-107); Creatinine, Serum 0.79 mg/dL (0.55-1.02); EST Glomerular Filtration Rate 84 mL/min (>60); Est Glom Filt Rate - Afr Amer 102 mL/min (>60); Estimated Creatinine Clearance 82.77 ml/min; Globulin 3.7 g/dL (2.2-4.2); Glucose 204 mg/dL (74-106); Potassium 3.5 mmol/L (3.5-5.1); Protein, Total 6.3 g/dL (6.4-8.2); Sodium Level 133 mmol/L (136-145)
[2022-06-13 10:36] LABS: Procalcitonin 0.12 ng/mL (0.00-0.09)
[2022-06-13 10:51] LABS: Differential Comment SCANNED; Reactive Lymphocyte 1+
--- NOTE | 2022-06-13 12:49 | PCM.PROGNOTE ---
Subjective Subjective Patient seen this a.m. resting in bed. Patient states she is tired and just wants to sleep. Continues voiding without difficulty. Denied further complaints. Objective Data Objective Data Vital Signs: Vital Signs Temp Pulse Resp BP Pulse Ox O2 Del Method 99 F 79 16 136/85 H 98 Room Air 06/13/22 10:31 06/13/22 10:31 06/13/22 10:31 06/13/22 10:31 06/13/22 10:31 06/13/22 10:31 Oxygen Delivery Method Room Air Weight: 57.1 kg Body Mass Index (BMI) 19.8 Intake & Output: Intake and Output for Last 24 Hours 06/11/22 06/12/22 06/13/22 23:59 23:59 23:59 Intake Total 1836 / 1836 789.5 / 789.5 1110 / 1110 Balance 1836 / 1836 789.5 / 789.5 1110 / 1110 Lab / Micro Data Result Diagrams: 06/13/22 09:26 06/13/22 09:26 Labs: Laboratory Results - last 24 hr 06/12/22 17:47: Vancomycin Trough 7.8 06/13/22 09:26: WBC 2.0 L, RBC 3.87 L, Hgb 12.0, Hct 36.4 L, MCV 94.1, MCH 31.0, MCHC 33.0, RDW Std Deviation 46.0 H, RDW Coeff of Soila 13.3, Plt Count 128 L, MPV 11.5, Immature Gran % (Auto) 0.000, Neut % (Auto) 49.0, Lymph % (Auto) 39.8, [place] % (Auto) 10.7 H, Eos % (Auto) 0.0, Baso % (Auto) 0.5, Absolute Neuts (auto) 1.0 L, Absolute Lymphs (auto) 0.78 L, Nucleated RBC % 0, Differential Comment SCANNED, Reactive Lymphocytes 1+, ESR 14 06/13/22 09:26: Sodium 133 L, Potassium 3.5, Chloride 100, Carbon Dioxide 27.0, Anion Gap 6, BUN 11, Creatinine 0.79, Estim Creat Clear Calc 82.77, Est GFR (MDRD) Af Amer 102, Est GFR (MDRD) Non-Af 84, BUN/Creatinine Ratio 13.9, Glucose 204 H, Calcium 8.1 L, Total Bilirubin 0.40, Direct Bilirubin 0.14, AST 128 H, ALT 103 H, Alkaline Phosphatase 192 H, C-React Prot Ext Range 6.29 H, Total Protein 6.3 L, Albumin 2.6 L, Globulin 3.7, Albumin/Globulin Ratio 0.7 L 06/13/22 09:26: Procalcitonin 0.12 H Micro: Microbiology 06/11/22 15:04 Wound - Left Foot Gram Stain - Final 06/11/22 15:04 Wound - Left Foot Wound Culture - Preliminary Pseudomonas aeruginosa GNR lactose wrestling coach Radiography Diagnostic Testing: Radiology Impression Liver Ultrasound 06/12/22 15:07 IMPRESSION: 1. Mild dilation of the common bile duct measuring up to 10 mm. This may be secondary to previous cholecystectomy, but correlate for any laboratory evidence of acute biliary obstruction. 2. Fatty infiltration of the liver. Electronically Signed: Holland Donahue MD at 0:25 EST , Physical Exam Const alert, oriented x3 and no apparent distress General Appearance: cooperative HEENT normocephalic Eyes General Eye: normal appearance of both eyes Neck General: normal visual inspection Lymph Lymphatic: no lymphadenopathy noted and no lymphedema noted Resp normal respiratory effort Cardio regular rate and regular rhythm Extremity normal capillary refill and no calf tenderness Extremity Narrative: DP and PT pulses are palpable with adequate capillary fill time. There is extensive soft tissue edema about the ankle with pain to palpation. Patient had previously undergone ORIF of the talus and medial malleolus. There is an ulceration noted to the medial ankle with healthy appearing granular layer postdebridement. Skin no rashes or lesions noted, skin turgor normal and no jaundice Wound Narrative: Ulceration noted to the medial aspect of the ankle with healthy granular layer postdebridement. No purulent drainage, mild periwound erythema, no visible abscess formation, no palpable fluctuance/bogginess, no lymphangitic streaking. Advanced wound care product/graft in place to ulceration bed anchored with Adaptic and Steri-Strips. Compression dressing intact with posterior splint applied to left lower extremity. Neuro moves all extremities Assessment & Plan Assessment/Plan (1) Polysubstance abuse: (2) Non-pressure chronic ulcer of other part of left foot with fat layer exposed: (3) Status post open reduction and internal fixation (ORIF) of fracture: (4) Infection of left foot: (5) Tobacco abuse: (6) Exposed orthopaedic hardware: PLAN: Plan Patient seen and evaluated S/p ORIF of the talus and medial malleolus. DOS 05/04/2022. POD#40 Patient was seen in office 06/10/22 for the first time since her discharge from [facility] on 05/12/2022. Patient has repeatedly been scheduled and no showed for appointments. Each incident was documented in office of her no-show and multiple attempts at rescheduling. She had been instructed to go to the ED for cast removal and suture removal if she was not able to make appointment, patient never did go to the ED. In office I did examine cast which was noted to be wet and disheveled indicating she had been walking on the cast. I did ask if she has remained compliant in nonweightbearing status and patient did state she has been walking on it at times because I cannot help it. Discussed with her our previous discussion on remaining strictly nonweightbearing to the left lower extremity as she has a healing fracture of high risk of AVN. Upon visit in the office 06/10/22 cast was removed and there was noted to be a mild odor and a medial ankle ulceration noted despite well-padded BK cast. Ulceration site demonstrated thickened blackened to yellow fibrotic tissue. No purulent drainage, no palpable fluctuance/bogginess, no visible abscess. There is mild periwound erythema. Radiographs were obtained in office demonstrating extensive soft tissue edema with no underlying osseous destruction. Internal fixation intact with no signs of loosening. On 06/10/2022 WBC 8.9, CRP 5, ESR 4. Despite normal laboratory work I do feel she is running infection on top of continued postoperative edema secondary to compliance issues. WBC has trended down currently at 2.0 with no left shift. Medicine team following for medical management, they are greatly appreciated. Infectious disease on board for antibiotic recommendations. Patient is aware of our previous discussion that even though hardware is intact and no underlying osseous destruction is present that she is at risk of undergoing a BKA due to her noncompliance and returning for postoperative appointments and the current infection of the medial ankle wound. I discussed with her that attention is now on limb salvage. She voices understanding of this discussion. Patient underwent surgical debridement of the ulceration on 06/11/2022 and tissue cultures were obtained. Cultures demonstrate E. coli and PsA. Patient currently on IV Vanco/Zosyn. During debridement it is noted that there was exposed hardware at the most distal aspect of the medial malleolus. Hardware providing stability to fracture site and thus not removed. Did undergo thorough washout and placement of amniotic tissue graft and axiofill graft. Advanced wound care products/graft intact to wound bed anchored with Adaptic and Steri-Strips with compression dressing. Posterior splint applied to left lower extremity and anchored with Grover wraps. Plan to leave grafting products in place to the wound bed to aid healing. Do not disturb dressing. Patient is to remain strictly nonweightbearing to the left lower extremity. Patient to elevate left lower extremity at all times of rest for edema control. Patient does have elevated liver enzymes with hepatitis panel pending. Tylenol has been stopped. Receiving Toradol for pain as needed. Podiatry will continue to follow in-house Jr. Nabeel Murcia.P.M. [facility] [place] [phone]
[2022-06-13 15:20] VITALS: BP 147/98; PULSE 75; RESP 16; TEMP 36.9; O2SAT 99
[2022-06-13 21:51] VITALS: BP 145/108; PULSE 78; RESP 16; TEMP 37.2; O2SAT 98
[2022-06-14 04:00] VITALS: BP 138/84; PULSE 72; RESP 16; TEMP 37.1; O2SAT 99
[2022-06-14 06:18] LABS: Absolute Lymphocyte Count 1.65 X10^3/uL (0.83-4.51); Basophil# 0.02 X10^3/uL; Basophil% 0.6 % (0-1); Eosinophil# 0.01 X10^3/uL; Eosinophils% 0.3 % (0-5); Erythrocyte Sedimentation Rate 26 mm/hr (0-30); Hematocrit 40.1 % (37-47); Hemoglobin 13.4 g/dL (12.0-15.0); Lymphocyte # 1.65 X10^3/ul (0.83-4.51); Lymphocyte % 52.9 % (19-41); Mean Corp Hgb Conc 33.4 g/dL (32-36); Mean Corpuscular Hgb 31.2 pg (27.0-32.0); Mean Corpuscular Volume 93.3 fL (81-99); Mean Platelet Vol. 11.9 fl (6.2-12.0); Monocyte# 0.44 X10^3/uL; Monocyte% 14.1 % (0-10); NRBC Flagged by Analyzer 0 % (0-5); Neutrophil % 32.1 % (47-70); Platelet Count 171 K/mm3 (150-450); RBC Distribution Width CV 13.4 % (11.6-14.6); RBC Distribution Width SD 45.8 fl (35.1-43.9); White Blood Count 3.1 K/mm3 (4.4-11.0)
[2022-06-14 06:43] LABS: ALB/GLOB Ratio 0.7 RATIO (0.9-2.4); AST(SGOT) 98 U/L (15-37); Alanine Aminotransfer ALT/SGPT 84 U/L (13-56); Albumin, Serum 2.8 g/dL (3.2-5.0); Alkaline Phosphatase 175 U/L (45-117); Anion Gap 8 (5-15); BUN 14 mg/dL (7-18); BUN/Creat Ratio 16.7 RATIO (10-20); CRP < 2.90 mg/L (0.0-3.0); Calcium,Total 8.7 mg/dL (8.5-10.1); Chloride 101 mmol/L (98-107); Creatinine, Serum 0.84 mg/dL (0.55-1.02); EST Glomerular Filtration Rate 79 mL/min (>60); Est Glom Filt Rate - Afr Amer 95 mL/min (>60); Estimated Creatinine Clearance 77.84 ml/min; Glucose 138 mg/dL (74-106); Potassium 3.6 mmol/L (3.5-5.1); Protein, Total 6.8 g/dL (6.4-8.2); Sodium Level 136 mmol/L (136-145)
[2022-06-14] MEDS: Chlorthalidone 50 MG Tablet 12.5 MG PO (09:24)
[2022-06-14] MEDS: Juven (unflavored) Packet 1 PACKET PO (09:24)
[2022-06-14 09:27] VITALS: BP 128/94; PULSE 84; RESP 16; TEMP 36.9; O2SAT 100
--- NOTE | 2022-06-14 10:29 | WOUNDNOTE ---
Dressing and splint in place to the LLE. orders to keep dressing intact.
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
--- NOTE | 2022-06-14 12:47 | PCM.PN.ID ---
Physical Exam Narrative Feeling a little better, pain controlled, no fever, no n/v/d. Const alert and no apparent distress General Appearance: cooperative Resp normal air movement and clear to auscultation bilaterally Cardio regular rate and regular rhythm GI soft to palpation, non-tender and non-distended Extremity Extremity Narrative: foot wrapped Skin no rashes or lesions noted ID ID: Route of nutrition/ use of supplements: [] Nutritional Intake: [] IV Site: [] Aguero Catheter: [] Assessment & Plan Assessment/Plan (1) Infection of left foot: PLAN: On vanc/zosyn, wound cx with PsA and ecoli. Taken to OR 06/11/22 for I&D by Dr. Bolton. Has hardware in place. H/o IVDU and untreated hep C. Transaminitis here is improving. Hiv neg here. Will stop vanc, cont zosyn for now. Plan at this point for discharge will be long course po cipro or levaquin. Last QTC was 460. Will follow, d/w Dr. Bolton (2) Status post open reduction and internal fixation (ORIF) of fracture: (3) Polysubstance abuse:
[2022-06-14 13:01] LABS: Pathologist Review Reviewed
--- NOTE | 2022-06-14 13:02 | PCM.PROGNOTE ---
Subjective Subjective Patient seen today resting in bed. States she had just eaten. Pain continues to improve. Patient is afebrile. Denies constitutional symptoms. Denies further complaints. Objective Data Objective Data Vital Signs: Vital Signs Temp Pulse Resp BP Pulse Ox O2 Del Method 98.4 F 84 16 128/94 H 100 Room Air 06/14/22 09:27 06/14/22 09:27 06/14/22 09:27 06/14/22 09:27 06/14/22 09:27 06/14/22 09:27 Oxygen Delivery Method Room Air Weight: 57.1 kg Body Mass Index (BMI) 19.8 Intake & Output: Intake and Output for Last 24 Hours 06/12/22 06/13/22 06/14/22 23:59 23:59 23:59 Intake Total 789.5 / 789.5 2170 / 2170 630 / 630 Balance 789.5 / 789.5 2170 / 2170 630 / 630 Lab / Micro Data Result Diagrams: 06/14/22 05:15 06/14/22 05:15 Labs: Laboratory Results - last 24 hr 06/12/22 06:46: Diff Path Review Reviewed 06/14/22 05:15: WBC 3.1 L, RBC 4.30, Hgb 13.4, Hct 40.1, MCV 93.3, MCH 31.2, MCHC 33.4, RDW Std Deviation 45.8 H, RDW Coeff of Soila 13.4, Plt Count 171, MPV 11.9, Immature Gran % (Auto) 0.000, Neut % (Auto) 32.1 L, Lymph % (Auto) 52.9 H, [place] % (Auto) 14.1 H, Eos % (Auto) 0.3, Baso % (Auto) 0.6, Absolute Neuts (auto) 1.0 L, Absolute Lymphs (auto) 1.65, Nucleated RBC % 0 06/14/22 05:15: Sodium 136, Potassium 3.6, Chloride 101, Carbon Dioxide 27.0, Anion Gap 8, BUN 14, Creatinine 0.84, Estim Creat Clear Calc 77.84, Est GFR (MDRD) Af Amer 95, Est GFR (MDRD) Non-Af 79, BUN/Creatinine Ratio 16.7, Glucose 138 H, Calcium 8.7, Total Bilirubin 0.30, AST 98 H, ALT 84 H, Alkaline Phosphatase 175 H, C-React Prot Ext Range < 2.90, Total Protein 6.8, Albumin 2.8 L, Globulin 4.0, Albumin/Globulin Ratio 0.7 L Micro: Microbiology 06/11/22 15:04 Wound - Left Foot Gram Stain - Final 06/11/22 15:04 Wound - Left Foot Wound Culture - Preliminary Pseudomonas aeruginosa GNR lactose peanut cleaner 06/11/22 15:04 Wound - Left Foot Anaerobic Culture - Preliminary Checking for anaerobes, further studies to follow. Physical Exam Const alert, oriented x3 and no apparent distress General Appearance: cooperative HEENT normocephalic Eyes General Eye: normal appearance of both eyes Neck General: normal visual inspection Lymph Lymphatic: no lymphadenopathy noted and no lymphedema noted Resp normal respiratory effort Cardio regular rate and regular rhythm Extremity normal capillary refill and no calf tenderness Extremity Narrative: DP and PT pulses are palpable with adequate capillary fill time. There is extensive soft tissue edema about the ankle with pain to palpation. Patient had previously undergone ORIF of the talus and medial malleolus. There is an ulceration noted to the medial ankle with healthy appearing granular layer postdebridement. Skin no rashes or lesions noted, skin turgor normal and no jaundice Wound Narrative: Ulceration noted to the medial aspect of the ankle with healthy granular layer postdebridement. No purulent drainage, mild periwound erythema, no visible abscess formation, no palpable fluctuance/bogginess, no lymphangitic streaking. Advanced wound care product/graft in place to ulceration bed anchored with Adaptic and Steri-Strips. Compression dressing intact with posterior splint applied to left lower extremity. Neuro moves all extremities Assessment & Plan Assessment/Plan (1) Polysubstance abuse: (2) Non-pressure chronic ulcer of other part of left foot with fat layer exposed: (3) Status post open reduction and internal fixation (ORIF) of fracture: (4) Infection of left foot: (5) Tobacco abuse: (6) Exposed orthopaedic hardware: PLAN: Plan Patient seen and evaluated S/p ORIF of the talus and medial malleolus. DOS 05/04/2022. POD#41 Patient was seen in office 06/10/22 for the first time since her discharge from [facility] on 05/12/2022. Patient has repeatedly been scheduled and no showed for appointments. Each incident was documented in office of her no-show and multiple attempts at rescheduling. She had been instructed to go to the ED for cast removal and suture removal if she was not able to make appointment, patient never did go to the ED. In office I did examine cast which was noted to be wet and disheveled indicating she had been walking on the cast. I did ask if she has remained compliant in nonweightbearing status and patient did state she has been walking on it at times because I cannot help it. Discussed with her our previous discussion on remaining strictly nonweightbearing to the left lower extremity as she has a healing fracture of high risk of AVN. Upon visit in the office 06/10/22 cast was removed and there was noted to be a mild odor and a medial ankle ulceration noted despite well-padded BK cast. Ulceration site demonstrated thickened blackened to yellow fibrotic tissue. No purulent drainage, no palpable fluctuance/bogginess, no visible abscess. There is mild periwound erythema. Radiographs were obtained in office demonstrating extensive soft tissue edema with no underlying osseous destruction. Internal fixation intact with no signs of loosening. On 06/10/2022 WBC 8.9, CRP 5, ESR 4. Despite normal laboratory work I do feel she is running infection on top of continued postoperative edema secondary to compliance issues. WBC currently at 3.1 with no left shift. Medicine team following for medical management, they are greatly appreciated. Infectious disease on board for antibiotic recommendations. ID recommending long-term Cipro or Levaquin orally as history of intravenous drug creates issues with use of PICC line. Patient is aware of our previous discussion that even though hardware is intact and no underlying osseous destruction is present that she is at risk of undergoing a BKA due to her noncompliance and returning for postoperative appointments and the current infection of the medial ankle wound. I discussed with her that attention is now on limb salvage. She voices understanding of this discussion. Patient underwent surgical debridement of the ulceration on 06/11/2022 and tissue cultures were obtained. Cultures demonstrate E. coli and PsA. Patient currently on IV Vanco/Zosyn. During debridement it is noted that there was exposed hardware at the most distal aspect of the medial malleolus. Hardware providing stability to fracture site and thus not removed. Did undergo thorough washout and placement of amniotic tissue graft and axiofill graft. Advanced wound care products/graft intact to wound bed anchored with Adaptic and Steri-Strips with compression dressing. Posterior splint applied to left lower extremity and anchored with Grover wraps. Plan to leave grafting products in place to the wound bed to aid healing. Do not disturb dressing. Patient is to remain strictly nonweightbearing to the left lower extremity. Patient to elevate left lower extremity at all times of rest for edema control. Patient does have elevated liver enzymes with hepatitis panel pending. Tylenol has been stopped. Liver enzymes trending downward. Receiving Toradol for pain as needed. Plan is to eventually go to wound center for continued debridement with placement of advanced wound care products as well as hyperbaric oxygen chamber to aid in healing. Patient is open to this. Discussed with her that this would be an every day visit for hyperbaric dives and that it is necessary to not miss sessions. She voices understanding of that. Patient stresses she wants to save the leg. Podiatry will continue to follow in-house Jr. Nabeel Murcia.P.M. [facility] [phone]
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
--- NOTE | 2022-06-14 13:29 | CASEMGMT ---
SW met with patient. Introduced self and role at [facility]. SW asked patient if she has somewhere to go when she is discharged. Patient said she thinks her friends that aren't too far from here are going to let her stay with them. SW asked patient if she was going to be able to get to her follow up appointments. Patient said that is the part she may have trouble with. There is no car at the one place where she might stay. However, she has some other friends that would be more reliable. SW asked patient if she has ever used her insurance for transportation to medical appointments. Patient said she has. SW explained to patient that SW wants to make sure she has what she needs when she leaves her. SW reiterated that patient has to go to her follow up appointments otherwise she is at risk for losing her leg. Patient verbalized understanding and said she will start making some phone calls. SW told patient SW will check back. Katelin ATKINSON
[2022-06-14 15:47] VITALS: BP 115/94; PULSE 81; RESP 15; TEMP 36.8; O2SAT 100
[2022-06-14] MEDS: Ketorolac 30 MG/ML Syringe IV (17:35)
[2022-06-14 21:18] VITALS: BP 140/86; PULSE 70; RESP 18; TEMP 36.6; O2SAT 98
[2022-06-15 03:20] VITALS: BP 113/81; PULSE 75; RESP 16; TEMP 36.6; O2SAT 98
[2022-06-15 09:15] LABS: Absolute Neutrophil Count 1.4 X10^3/uL (2.0-7.7); Basophil# 0.01 X10^3/uL; Basophil% 0.3 % (0-1); Eosinophil# 0.03 X10^3/uL; Eosinophils% 0.9 % (0-5); Hematocrit 38.6 % (37-47); Lymphocyte % 43.1 % (19-41); Mean Corp Hgb Conc 33.7 g/dL (32-36); Mean Corpuscular Hgb 31.6 pg (27.0-32.0); Mean Corpuscular Volume 93.7 fL (81-99); Mean Platelet Vol. 11.1 fl (6.2-12.0); Monocyte# 0.44 X10^3/uL; Monocyte% 13.5 % (0-10); NRBC Flagged by Analyzer 0 % (0-5); Neutrophil # 1.37 X10^3/uL (2.7-7.7); Neutrophil % 42.2 % (47-70); Platelet Count 163 K/mm3 (150-450); RBC Distribution Width CV 13.4 % (11.6-14.6); RBC Distribution Width SD 46.5 fl (35.1-43.9); Red Blood Count 4.12 M/mm3 (4.2-5.4); White Blood Count 3.3 K/mm3 (4.4-11.0)
[2022-06-15 09:47] LABS: Anion Gap 7 (5-15); BUN 20 mg/dL (7-18); BUN/Creat Ratio 19.6 RATIO (10-20); Calcium,Total 8.4 mg/dL (8.5-10.1); Chloride 104 mmol/L (98-107); Creatinine, Serum 1.02 mg/dL (0.55-1.02); EST Glomerular Filtration Rate 63 mL/min (>60); Est Glom Filt Rate - Afr Amer 76 mL/min (>60); Estimated Creatinine Clearance 64.11 ml/min; Glucose 120 mg/dL (74-106); Potassium 3.9 mmol/L (3.5-5.1); Sodium Level 140 mmol/L (136-145)
[2022-06-15 09:50] VITALS: BP 145/106; PULSE 73; RESP 18; TEMP 36.6; O2SAT 100
[2022-06-15] MEDS: Chlorthalidone 50 MG Tablet 12.5 MG PO (09:53)
[2022-06-15] MEDS: Juven (unflavored) Packet 1 PACKET PO (09:54)
--- NOTE | 2022-06-15 10:13 | PCM.PN.ID ---
Physical Exam Narrative Feeling better, pain controlled, no fever Const alert and no apparent distress Resp normal air movement and clear to auscultation bilaterally Cardio regular rate and regular rhythm GI soft to palpation, non-tender and non-distended Skin Skin Narrative: foot wrapped ID ID: Route of nutrition/ use of supplements: [] Nutritional Intake: [] IV Site: [] Aguero Catheter: [] Assessment & Plan Assessment/Plan (1) Infection of left foot: PLAN: Wound cxs with PsA, citro, and ecoli. Taken to OR 06/11/22 for I&D by Dr. Bolton. Has hardware in place. H/o IVDU and untreated hep C. Transaminitis here is improving. Hiv neg here. Cont zosyn for now. Plan at this point for discharge will be long course po levaquin 750mg daily (at least for 2 months). Last QTC was 460. Will follow, ID followup in 2 weeks (2) Status post open reduction and internal fixation (ORIF) of fracture: (3) Polysubstance abuse:
--- NOTE | 2022-06-15 10:24 | CASEMGMT ---
SW met with patient. Patient said she is pretty sure she has a place to stay at discharge. SW gave patient information on [facility] van as they can also assist with getting back and forth to the wound center. SW reminded patient her insurance is also an option for transportation to appointments. SW asked patient about her mental health. Patient has not seen a doctor for her mental health, but she thinks she is fine. RUBY asked about why she left the residential substance abuse treatment. Patient said when she showed up with her cast they did not want anything to do with her. SW asked patient if she would like resources for local mental health and substance abuse treatment. Patient declined stating she is fine. Katelin Todd MECHANICAL SYSTEMS DESIGN ENGINEER [employer]
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
--- NOTE | 2022-06-15 10:38 | WOUNDNOTE ---
Pt resting in bed talking with staff member. the splint and dressing intact to the LLE. orders to leave dressing intact. will follow as needed.
[2022-06-15] MEDS: Ketorolac 30 MG/ML Syringe IV (14:39)
[2022-06-15 14:44] VITALS: BP 128/90; PULSE 76; RESP 14; TEMP 37.3; O2SAT 99
[2022-06-15 20:08] LABS: HCV Quant. RNA PCR 2660 IU/mL (.)
[2022-06-15 20:33] LABS: HCV log 10 3.425 (.)
[2022-06-15 22:06] VITALS: BP 134/96; PULSE 74; RESP 16; TEMP 37.1; O2SAT 100
[2022-06-15] MEDS: 0.9% Saline Lock 10 ML Syringe IV (22:07)
[2022-06-15] MEDS: MELATONIN 3 MG TABLET PO (22:07)
[2022-06-16 03:50] VITALS: BP 110/86; PULSE 71; RESP 16; TEMP 36.9; O2SAT 97
[2022-06-16] MEDS: Juven (unflavored) Packet 1 PACKET PO ×2 (08:25→17:39)
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
[2022-06-16 09:50] VITALS: BP 118/76; PULSE 74; RESP 18; TEMP 36.4; O2SAT 100
[2022-06-16] MEDS: Chlorthalidone 50 MG Tablet 12.5 MG PO (10:05)
[2022-06-16 10:06] LABS: Absolute Lymphocyte Count 1.63 X10^3/uL (0.83-4.51); Absolute Neutrophil Count 2.5 X10^3/uL (2.0-7.7); Basophil# 0.01 X10^3/uL; Basophil% 0.2 % (0-1); Eosinophil# 0.04 X10^3/uL; Eosinophils% 0.9 % (0-5); Hematocrit 38.8 % (37-47); Lymphocyte # 1.63 X10^3/ul (0.83-4.51); Lymphocyte % 35.4 % (19-41); Mean Corp Hgb Conc 33.5 g/dL (32-36); Mean Corpuscular Volume 92.4 fL (81-99); Mean Platelet Vol. 11.1 fl (6.2-12.0); Monocyte% 8.7 % (0-10); NRBC Flagged by Analyzer 0 % (0-5); Neutrophil # 2.52 X10^3/uL (2.7-7.7); Neutrophil % 54.6 % (47-70); Platelet Count 164 K/mm3 (150-450); RBC Distribution Width CV 13.4 % (11.6-14.6); RBC Distribution Width SD 45.2 fl (35.1-43.9); White Blood Count 4.6 K/mm3 (4.4-11.0)
[2022-06-16] MEDS: Ketorolac 30 MG/ML Syringe IV (10:06)
[2022-06-16] MEDS: 0.9% Saline Lock 10 ML Syringe IV (10:06)
[2022-06-16 10:52] LABS: Anion Gap 4 (5-15); BUN 22 mg/dL (7-18); Calcium,Total 8.7 mg/dL (8.5-10.1); Chloride 103 mmol/L (98-107); Creatinine, Serum 1.05 mg/dL (0.55-1.02); EST Glomerular Filtration Rate 61 mL/min (>60); Est Glom Filt Rate - Afr Amer 74 mL/min (>60); Estimated Creatinine Clearance 62.27 ml/min; Glucose 159 mg/dL (74-106); Potassium 3.9 mmol/L (3.5-5.1); Sodium Level 137 mmol/L (136-145)
--- NOTE | 2022-06-16 11:34 | CASEMGMT ---
TANIA MAURO in to inquire about needs at discharge. Therapy recommending FWW at discharge, script received. Patient prefers [employer] for DME. TANIA MAURO inquired where she would be staying at discharge. Patient states she is staying with friend in [place]. TANIA MAURO inquired if she has access to transportation to appointments in wound center. Patient states she has friend and can arrange for transport through her insurance. TANIA MAURO updated patient regarding [facility] Van services as well. Patient had no further questions or concerns at this time. TANIA MAURO sent referral to [employer] via [facility] for FWW and arranged for delivery to patient's room. CM will continue to follow this patient and plan for a safe discharge.
--- NOTE | 2022-06-16 12:46 | DCINST_ITS ---
Discharge Instructions Diet Discharge Diet: No restrictions Activity Discharge Activity: May Shower (Please utilize cast bag covering to keep dressings clean dry and intact), Use Walker and Use Crutches (Please remain nonweightbearing to the left lower extremity at all times with use of walker or crutches) Weight Bearing Status: No weight bearing (Remain nonweightbearing to left lower extremity at all times) Keep extremity elevated above heart level: Left Leg (Continue to elevate left lower extremity at all times of rest for postoperative edema control) Dressing / Incision Call your doctor if your incision/area has: Continuous Slow Oozing, Increased Pain/ Swelling and Foul Smelling Discharge Call your doctor if you observe: Fever of 101 or Higher, Chest pain, Calf discomfort and Uncontrolled pain Change Dressing in: leave in place till F/U Remove Dressing in: do not remove dressing (Physician will change dressing at first postoperative appointment) Cleanse incision/area with: Do not get Incision Wet (Please keep dressings clean, dry, and intact to the left lower extremity) and Keep Dressing Clean & Dry Follow Up Care Please Follow Up With: Reji Bolton DPM When: 1 week in the wound care center Test Results: Test results from this visit will be discussed in further detail at your follow- up appointment, if applicable. Pending Tests Upon Discharge: None Discharge Plan Admission Admit Date/Time: 06/10/22 22:20 Attending Provider: Girish Reddy Primary Care Provider: Care Physician,Imani Primary Consulting Providers: Judith Cochran ; Judith Rodriguez ; Mary Padilla ; Aliyah Hill ; Girish Reddy ; Leonel Tucker ; Jack Stewart ; Lydia Fong ; Kael Chong ; Braeden Figueroa ; Ernesto Degroot ; Sarai Dukes ; Josep Ghosh ; Flor Vera ; Michael Chance ; Lucas Perry ; Rodney Briscoe ; Abi Delgado ; Chris Berumen ; Sarai Carrillo NP ; Daniel Fine ; Reji Bolton Discharge Orders/Prescriptions Prescriptions: New levofloxacin 750 mg tablet 750 mg PO DAILY 56 Days Qty: 56 0RF No Action acetaminophen [8 Hour Pain Reliever] 650 mg tablet extended release 650 mg PO Q8H PRN (Reason: pain) 30 Days Qty: 60 0RF Referrals / Follow Up: Care Physician,No Primary [Primary Care Provider] - Disposition Disposition (needs filled in before D/C Order can be placed): Home, Self Care
--- NOTE | 2022-06-16 12:51 | PCM.PROGNOTE ---
Subjective Subjective Patient seen resting bedside today. Denies any constitutional symptoms. Denies further complaints. Objective Data Objective Data Vital Signs: Vital Signs Temp Pulse Resp BP Pulse Ox O2 Del Method 97.5 F L 74 18 118/76 100 Room Air 06/16/22 09:50 06/16/22 09:50 06/16/22 09:50 06/16/22 09:50 06/16/22 09:50 06/16/22 09:50 Oxygen Delivery Method Room Air Weight: 57.1 kg Body Mass Index (BMI) 19.8 Intake & Output: Intake and Output for Last 24 Hours 06/14/22 06/15/22 06/16/22 23:59 23:59 23:59 Intake Total 1400.00 / 1400.00 866.67 / 866.67 100 / 100 Balance 1400.00 / 1400.00 866.67 / 866.67 100 / 100 Lab / Micro Data Result Diagrams: 06/16/22 09:59 06/16/22 09:59 Labs: Laboratory Results - last 24 hr 06/13/22 09:26: HCV RNA Quant (PCR) 2660, HCV RNA (PCR) IU log10 3.425, HCV RNA PCR Test Info Comment 06/16/22 09:59: WBC 4.6, RBC 4.20, Hgb 13.0, Hct 38.8, MCV 92.4, MCH 31.0, MCHC 33.5, RDW Std Deviation 45.2 H, RDW Coeff of Soila 13.4, Plt Count 164, MPV 11.1, Immature Gran % (Auto) 0.200, Neut % (Auto) 54.6, Lymph % (Auto) 35.4, Ware % (Auto) 8.7, Eos % (Auto) 0.9, Baso % (Auto) 0.2, Absolute Neuts (auto) 2.5, Absolute Lymphs (auto) 1.63, Nucleated RBC % 0 06/16/22 09:59: Sodium 137, Potassium 3.9, Chloride 103, Carbon Dioxide 30.0, Anion Gap 4 L, BUN 22 H, Creatinine 1.05 H, Estim Creat Clear Calc 62.27, Est GFR (MDRD) Af Amer 74, Est GFR (MDRD) Non-Af 61, BUN/Creatinine Ratio 21.0 H, Glucose 159 H, Calcium 8.7 Micro: Microbiology 03/03/23 15:04 Wound - Left Foot Gram Stain - Final 06/11/22 15:04 Wound - Left Foot Wound Culture - Final Pseudomonas aeruginosa Citrobacter freundii 06/11/22 15:04 Wound - Left Foot Anaerobic Culture - Final No anaerobic bacteria isolated. 06/13/22 09:20 Blood Culture (Wb) - Anticubital Left Blood Culture - Preliminary No growth in 48 hours. 06/13/22 09:26 Blood Culture (Wb) - Left Hand Blood Culture - Preliminary No growth in 48 hours. Assessment & Plan Assessment/Plan (1) Polysubstance abuse: (2) Non-pressure chronic ulcer of other part of left foot with fat layer exposed: (3) Status post open reduction and internal fixation (ORIF) of fracture: (4) Infection of left foot: (5) Tobacco abuse: (6) Exposed orthopaedic hardware: PLAN: Plan Patient seen and evaluated S/p ORIF of the talus and medial malleolus.? DOS 05/04/2022.? POD#[id number] Patient was seen in office 06/10/22 for the first time since her discharge from [facility] on 05/12/2022.? Patient has repeatedly been scheduled and no showed for appointments.? Each incident was documented in office of her no-show and multiple attempts at rescheduling.? She had been instructed to go to the ED for cast removal and suture removal if she was not able to make appointment, patient never did go to the ED. In office I did examine cast which was noted to be wet and disheveled indicating she had been walking on the cast.? I did ask if she has remained compliant in nonweightbearing status and patient did state she has been walking on it at times because I cannot help it.? Discussed with her our previous discussion on remaining strictly nonweightbearing to the left lower extremity as she has a healing fracture of high risk of AVN. Upon visit in the office 06/10/22 cast was removed and there was noted to be a mild odor and a medial ankle ulceration noted despite well-padded BK cast.? Ulceration site demonstrated thickened blackened to yellow fibrotic tissue.? No purulent drainage, no palpable fluctuance/bogginess, no visible abscess.? There is mild periwound erythema.? Radiographs were obtained in office demonstrating extensive soft tissue edema with no underlying osseous destruction.? Internal fixation intact with no signs of loosening. On 06/10/2022 WBC 8.9, CRP 5, ESR 4.? Despite normal laboratory work I do feel she is running infection on top of continued postoperative edema secondary to compliance issues.? WBC normalizing, currently at 4.2 with no left shift. Medicine team following for medical management, they are greatly appreciated. Infectious disease on board for antibiotic recommendations.? ID recommending long-term Levaquin 750 mg p.o. daily for 8 weeks as history of intravenous drug creates issues with use of PICC line. Patient is aware of our previous discussion that even though hardware is intact and no underlying osseous destruction is present that she is at risk of undergoing a BKA due to her noncompliance and returning for postoperative appointments and the current infection of the medial ankle wound.? I discussed with her that attention is now on limb salvage.? She voices understanding of this discussion. Patient underwent surgical debridement of the ulceration on 06/11/2022 and tissue cultures were obtained.? Cultures demonstrate E. coli and PsA, Citrobacter fruendii.? Patient currently on IV Zosyn.? During debridement it is noted that there was exposed hardware at the most distal aspect of the medial malleolus.? Hardware providing stability to fracture site and thus not removed.? Did undergo thorough washout and placement of amniotic tissue graft and axiofill graft.? Advanced wound care products/graft intact to wound bed anchored with Adaptic and Steri-Strips with compression dressing.? Posterior splint applied to left lower extremity and anchored with Grover wraps. Plan to leave grafting products in place to the wound bed to aid healing.? Outer dressings were changed today and patient placed back into compression dressing with posterior splint. Patient is to remain strictly nonweightbearing to the left lower extremity.? Patient to elevate left lower extremity at all times of rest for edema control. Patient does have elevated liver enzymes with hepatitis panel returned with mild elevation of transaminases.? Tylenol has been stopped.? Liver enzymes trending downward.? Receiving Toradol for pain as needed. Plan is to eventually go to wound center for continued debridement with placement of advanced wound care products as well as hyperbaric oxygen chamber to aid in healing.? Patient is open to this.? Discussed with her that this would be an every day visit for hyperbaric dives and that it is necessary to not miss sessions.? She voices understanding of that.? Patient stresses she wants to save the leg. Hyperbaric oxygen chamber is required in order to aid healing of her medial ankle ulceration with exposed orthopedic hardware communicating deep to the ankle joint. This is necessary to reduce infection, aid in healing of her multiple fractures and soft tissue skin ulceration and attempts to save the left lower extremity. Podiatry will continue to follow in-house Jr. Mikhail MurciaP.Jaskaran. [facility] [phone]
--- NOTE | 2022-06-16 12:57 | PCM.DC.SUM ---
Providers Date of Admission: 06/10/22 Date of Discharge: 06/16/22 Primary Care Physician: Imani Primary Care Phys Consultations 06/10/22 20:45 Consult: Hospitalist Routine Consulting Provider: Dede Alexander Reason for Consult: Surgical clearance/medical management EMERGENT Consult: No MD Notified: Yes Date Notified: 06/10/22 Time Notified: 20:42 Method of Notification: ED Physician Initiated Consult: Infectious Disease Routine Consulting Provider: Daniel Fine Reason for Consult: Medial ulcer wound. Post-operative ORIF from 05/04/22. EMERGENT Consult: No Notified: Yes Date Notified: 06/11/22 Time Notified: 06:51 Method of Notification: Answering Service Consult: Onc/Wound/micropaleontologist Routine Comment: Reason for Consult:: medial malleolar wound Comments:: Patient is post-op ORIF Talus and Medial mal fx 05/04/22 Reason For Visit: INFECTED MEDIAL MALLEOLAR WOUND Diagnosis Discharge Diagnosis (1) Polysubstance abuse: Status: Acute Code(s): F19.10 - Other psychoactive substance abuse, uncomplicated (2) Non-pressure chronic ulcer of other part of left foot with fat layer exposed: Status: Chronic Code(s): L97.522 - Non-pressure chronic ulcer of other part of left foot with fat layer exposed (3) Status post open reduction and internal fixation (ORIF) of fracture: Status: Acute Code(s): Z98.890 - Other specified postprocedural states; Z87.81 - Personal history of (healed) traumatic fracture (4) Infection of left foot: Status: Acute Code(s): L08.9 - Local infection of the skin and subcutaneous tissue, unspecified (5) Tobacco abuse: Status: Acute Code(s): Z72.0 - Tobacco use (6) Exposed orthopaedic hardware: Status: Acute Code(s): T84.498A - Other mechanical complication of other internal orthopedic devices, implants and grafts, initial encounter Plan Patient seen and evaluated S/p ORIF of the talus and medial malleolus.? DOS 05/04/2022.? POD#43 Patient was seen in office 06/10/22 for the first time since her discharge from [facility] on 05/12/2022.? Patient has repeatedly been scheduled and no showed for appointments.? Each incident was documented in office of her no-show and multiple attempts at rescheduling.? She had been instructed to go to the ED for cast removal and suture removal if she was not able to make appointment, patient never did go to the ED. In office I did examine cast which was noted to be wet and disheveled indicating she had been walking on the cast.? I did ask if she has remained compliant in nonweightbearing status and patient did state she has been walking on it at times because I cannot help it.? Discussed with her our previous discussion on remaining strictly nonweightbearing to the left lower extremity as she has a healing fracture of high risk of AVN. Upon visit in the office 06/10/22 cast was removed and there was noted to be a mild odor and a medial ankle ulceration noted despite well-padded BK cast.? Ulceration site demonstrated thickened blackened to yellow fibrotic tissue.? No purulent drainage, no palpable fluctuance/bogginess, no visible abscess.? There is mild periwound erythema.? Radiographs were obtained in office demonstrating extensive soft tissue edema with no underlying osseous destruction.? Internal fixation intact with no signs of loosening. On 06/10/2022 WBC 8.9, CRP 5, ESR 4.? Despite normal laboratory work I do feel she is running infection on top of continued postoperative edema secondary to compliance issues.? WBC normalizing, currently at 4.2 with no left shift. Medicine team following for medical management, they are greatly appreciated. Infectious disease on board for antibiotic recommendations.? ID recommending long-term Levaquin 750 mg p.o. daily for 8 weeks as history of intravenous drug creates issues with use of PICC line. Patient is aware of our previous discussion that even though hardware is intact and no underlying osseous destruction is present that she is at risk of undergoing a BKA due to her noncompliance and returning for postoperative appointments and the current infection of the medial ankle wound.? I discussed with her that attention is now on limb salvage.? She voices understanding of this discussion. Patient underwent surgical debridement of the ulceration on 06/11/2022 and tissue cultures were obtained.? Cultures demonstrate E. coli and PsA, Citrobacter fruendii.? Patient currently on IV Zosyn.? During debridement it is noted that there was exposed hardware at the most distal aspect of the medial malleolus.? Hardware providing stability to fracture site and thus not removed.? Did undergo thorough washout and placement of amniotic tissue graft and axiofill graft.? Advanced wound care products/graft intact to wound bed anchored with Adaptic and Steri-Strips with compression dressing.? Posterior splint applied to left lower extremity and anchored with Grover wraps. Plan to leave grafting products in place to the wound bed to aid healing.? Outer dressings were changed today and patient placed back into compression dressing with posterior splint. Patient is to remain strictly nonweightbearing to the left lower extremity.? Patient to elevate left lower extremity at all times of rest for edema control. Patient does have elevated liver enzymes with hepatitis panel returned with mild elevation of transaminases.? Tylenol has been stopped.? Liver enzymes trending downward.? Receiving Toradol for pain as needed. Plan is to eventually go to wound center for continued debridement with placement of advanced wound care products as well as hyperbaric oxygen chamber to aid in healing.? Patient is open to this.? Discussed with her that this would be an every day visit for hyperbaric dives and that it is necessary to not miss sessions.? She voices understanding of that.? Patient stresses she wants to save the leg. Hyperbaric oxygen chamber is required in order to aid healing of her medial ankle ulceration with exposed orthopedic hardware communicating deep to the ankle joint. This is necessary to reduce infection, aid in healing of her multiple fractures and soft tissue skin ulceration and attempts to save the left lower extremity. Podiatry will continue to follow in-house Reji Bolton Jr. D.P.M. [facility] [phone] Medications at Discharge Home Medications acetaminophen 650 mg tablet,extended release (8 Hour Pain Reliever) 650 mg PO Q8H PRN pain 30 days #60 tabs 05/10/22 levofloxacin 750 mg tablet 750 mg PO DAILY Infection 8 weeks #56 tabs 06/16/22 Hospital Course Operations - (Debridement of infected medial malleoli are wound and placement of advanced wound care products left lower extremity) Procedures - Summary of Care Provided Minutes Spent on Discharge: 35 Hospital Course: Patient was admitted on 06/10/2022 for left lower extremity medial ankle ulceration with infection. She was placed on Vanco/Zosyn IV and underwent sharp debridement of the ulcerative site on 06/11/2022. Advanced wound care products were placed during debridement. Patient continued to receive IV antibiotics while in house, with Vanco due to culture results. Infectious disease was consulted for management of antibiotics and recommendations for discharge. ID recommended 8 weeks oral antibiotic Levaquin 750 mg p.o. daily. ID will follow in 2 weeks. Advanced wound care products were left in place with dressing undisturbed, I did change the outer dressings prior to her discharge. Patient will follow-up in the wound care center where she will undergo debridement and continued application of advanced wound care products as well as hyperbaric oxygen chamber to aid in healing and prevent left lower extremity amputation. Patient was discharged from [facility] 06/16/2022 in stable condition. Physical Exam Const alert, oriented x3 and no apparent distress General Appearance: cooperative HEENT normocephalic Eyes General Eye: normal appearance of both eyes Neck General: normal visual inspection Lymph Lymphatic: no lymphadenopathy noted and no lymphedema noted Resp normal respiratory effort Cardio regular rate and regular rhythm Extremity normal capillary refill, no joint enlargement, no calf tenderness and no pedal edema Skin no rashes or lesions noted, skin turgor normal and no jaundice Wound Narrative: Ulceration noted to the left lower extremity medial ankle with advanced wound care product intact with dressings intact to the left lower extremity and posterior splint applied. Neuro moves all extremities Weight / BMI Weight Weight: 57.1 kg Body Mass Index (BMI) 19.8 ABG / Lab / Microbiology Data Result Diagrams: 06/16/22 09:59 06/16/22 09:59 Laboratory: Laboratory Results - last 24 hr 06/13/22 09:26: HCV RNA Quant (PCR) 2660, HCV RNA (PCR) IU log10 3.425, HCV RNA PCR Test Info Comment 06/16/22 09:59: WBC 4.6, RBC 4.20, Hgb 13.0, Hct 38.8, MCV 92.4, MCH 31.0, MCHC 33.5, RDW Std Deviation 45.2 H, RDW Coeff of Soila 13.4, Plt Count 164, MPV 11.1, Immature Gran % (Auto) 0.200, Neut % (Auto) 54.6, Lymph % (Auto) 35.4, Gem % (Auto) 8.7, Eos % (Auto) 0.9, Baso % (Auto) 0.2, Absolute Neuts (auto) 2.5, Absolute Lymphs (auto) 1.63, Nucleated RBC % 0 06/16/22 09:59: Sodium 137, Potassium 3.9, Chloride 103, Carbon Dioxide 30.0, Anion Gap 4 L, BUN 22 H, Creatinine 1.05 H, Estim Creat Clear Calc 62.27, Est GFR (MDRD) Af Amer 74, Est GFR (MDRD) Non-Af 61, BUN/Creatinine Ratio 21.0 H, Glucose 159 H, Calcium 8.7 Microbiology: Microbiology 06/11/22 15:04 Wound - Left Foot Gram Stain - Final 06/11/22 15:04 Wound - Left Foot Wound Culture - Final Pseudomonas aeruginosa Citrobacter freundii 06/11/22 15:04 Wound - Left Foot Anaerobic Culture - Final No anaerobic bacteria isolated. 06/13/22 09:20 Blood Culture (Wb) - Anticubital Left Blood Culture - Preliminary No growth in 48 hours. 06/13/22 09:26 Blood Culture (Wb) - Left Hand Blood Culture - Preliminary No growth in 48 hours. D/C Instructions Discharge Diet: No restrictions Weight Bearing Status: No weight bearing (Remain nonweightbearing to left lower extremity at all times) Keep extremity elevated above heart level: Left Leg (Continue to elevate left lower extremity at all times of rest for postoperative edema control) Call your doctor if your incision/area has: Continuous Slow Oozing, Increased Pain/ Swelling and Foul Smelling Discharge Call your doctor if you observe: Fever of 101 or Higher, Chest pain, Calf discomfort and Uncontrolled pain Cleanse incision/area with: Do not get Incision Wet (Please keep dressings clean, dry, and intact to the left lower extremity) and Keep Dressing Clean & Dry Please Follow Up With: Reji Bolton DPM When: 1 week in the wound care center Meaningful Use Info Meaningful Use Diagnoses (Choose all that apply): None applicable Discharge Plan Admission Admit Date/Time: 06/10/22 22:20 Attending Provider: Girish Reddy Primary Care Provider: Care Physician,No Primary Consulting Providers: Judith Cochran ; Judith Rodriguez ; Mary Padilla ; Aliyah Hill ; Girish Reddy ; Leonel Tucker ; Jack Stewart ; Lydia Fong ; Kael Chong ; Braeden Figueroa ; Ernesto Degroot ; Sarai Dukes ; Josep Ghosh ; Flor Vera ; Michael Chance ; Lucas Perry ; Rodney Briscoe ; Abi Delgado ; Chris Berumen ; Sarai Carrillo NP ; Daniel Fine ; Reji Bolton Discharge Orders/Prescriptions Prescriptions: New levofloxacin 750 mg tablet 750 mg PO DAILY 56 Days Qty: 56 0RF No Action acetaminophen [8 Hour Pain Reliever] 650 mg tablet extended release 650 mg PO Q8H PRN (Reason: pain) 30 Days Qty: 60 0RF Referrals / Follow Up: Care Physician,No Primary [Primary Care Provider] - Disposition Disposition (needs filled in before D/C Order can be placed): Home, Self Care
[2022-06-16 15:50] VITALS: BP 106/79; PULSE 68; RESP 16; TEMP 36.7; O2SAT 100
== END 2022-06-16 18:34 | disposition home or self-care (01) | DRG 364 ==
LOC: ED 19:36 → PCU 19:43
PROVIDERS: Internal Medicine; Internal Medicine Infectious Disease; Admitting Provider Student in an Organized Health Care Education/Training Program; Emergency Provider Emergency Medicine; Referring Provider Emergency Medicine; Visit Provider Internal Medicine
PROC: 0JBR0ZZ Excision of Left Foot Subcutaneous Tissue and Fascia, Open Approach (ICD-10-PCS; principal; 2022-06-11 13:20)
DX: L97.322 Non-pressure chronic ulcer of left ankle with fat layer exposed (principal); B96.5 Pseudomonas (aeruginosa) (mallei) (pseudomallei) as the cause of diseases classified elsewhere; L97.522 Non-pressure chronic ulcer of other part of left foot with fat layer exposed; F31.9 Bipolar disorder, unspecified; T84.498A Other mechanical complication of other internal orthopedic devices, implants and grafts, initial encounter; L97.222 Non-pressure chronic ulcer of left calf with fat layer exposed; F10.20 Alcohol dependence, uncomplicated; E87.5 Hyperkalemia; I10 Essential (primary) hypertension; S82.52XS Displaced fracture of medial malleolus of left tibia, sequela; S92.12 Fracture of body of talus; F17.210 Nicotine dependence, cigarettes, uncomplicated; Y83.8 Other surgical procedures as the cause of abnormal reaction of the patient, or of later complication, without mention of misadventure at the time of the procedure; Y92.239 Unspecified place in hospital as the place of occurrence of the external cause; V89.2XXS Person injured in unspecified motor-vehicle accident, traffic, sequela; L08.9 Local infection of the skin and subcutaneous tissue, unspecified; B96.20 Unspecified Escherichia coli [E. coli] as the cause of diseases classified elsewhere; Z86.19 Personal history of other infectious and parasitic diseases; Z91.14 Patient's other noncompliance with medication regimen
CPT/HCPCS: 36415; 73610; 76705; 80048; 80053; 80074; 80202; 82248; 83735; 84145; 85025; 85652; 86140; 86703; 87040; 87070; 87075; 87077; 87102; 87186; 87205; 87206; 87522; 88304; 97110; 97162; 97166; 97530; 97802; 97803; 99284; 99406; J7030; J7040; J7050; J7120; A4216; J2405

== ENCOUNTER → 2022-06-10 | Outpatient (CLI) | payer MEDICAID, SELFPAY | END | disposition home or self-care (01) | PROVIDERS: Visit Provider Student in an Organized Health Care Education/Training Program | DX: L97.222 Non-pressure chronic ulcer of left calf with fat layer exposed (principal) | CPT/HCPCS: 87070; 87075; 87205 ==

== ENCOUNTER 2022-06-30 12:40 | Emergency (ER) | payer MEDICAID, SELFPAY ==
[2022-06-30 12:42] VITALS: BP 142/92; PULSE 88; RESP 14; TEMP 37.2; O2SAT 98
--- NOTE | 2022-06-30 13:47 | EDS_ITS ---
HPI History of Present Illness Chief Complaint: Cellulitis Narrative Narrative: 42-year-old female here with left ankle pain. States she had ankle surgery by Dr. Bolton earlier this month. Notes 1-1/2 weeks of pain tenderness swelling. Denies any fever. Denies any IV drug use recently. States symptoms are constant, severe without alleviating exacerbating features. Is emphatic she has been compliant with oral antibiotic PFSH PFSH Medical History Bipolar 1 disorder Drug use Head trauma History of alcohol abuse History of tobacco abuse HTN (hypertension) Marijuana abuse Smoker Home Medications levofloxacin 750 mg tablet 750 mg PO DAILY Infection 8 weeks #56 tabs 06/16/22 [Rx Last Taken 06/30/22] naproxen sodium 220 mg tablet (Aleve) 220 mg PO BID PRN Pain 06/30/22 [History Last Taken 06/29/22] Allergy/AdvReac Type Severity Reaction Status Date / Time No Known Allergies Allergy Verified 06/30/22 12:41 Family History (Updated 06/10/22 @ 16:38 by Rosalee Whitehead) Other Lung cancer Surgical History (Updated 06/30/22 @ 15:15 by Araceli Phillips) H/O brain surgery History of ankle surgery Hx of cholecystectomy Social History Smoking Status: Light Smoker (<10/day) ROS ROS ED ROS Narrative Constitutional: Denies fever HEENT: Denies sore throat Neck: Denies neck pain Cardiovascular: Denies chest pain, syncope Respiratory: Denies shortness of breath GI: Denies nausea vomiting or abdominal pain : Denies changes in urinary habits Musculoskeletal: Denies muscle or joint pain Neurologic: Denies numbness weakness or loss of sensation Skin redness, swelling of the left ankle EXAM Physical Exam Narrative Exam Narrative: Nursing triage notes reviewed, Vital signs reviewed Constitutional: please see mdm HENT: MMM Eyes: Pupils equal round and reactive to light, Extraocular muscles intact Neck: No stridor, no JVD, full neck ROM Lungs: Clear to auscultation, No wheezing or rales. No increased work of breathing, no conversational dyspnea, no accessory muscle use, no nasal flaring. No respiratory distress noted Heart: Regular rate and rhythm, No murmurs, No rubs and No gallops, 2+ distal pulses (radial, femoral, posterior tibial) in all extremities Abdomen: Soft, there is no tenderness, rigidity, rebound or guarding, no obvious peritoneal signs, no palpable pulsatile abdominal masses, no auscultated abdominal bruit : No CVAT Extremities: No edema Neuro: No focal neurological deficits, cranial nerves II through XII intact, 5/5 strength in all extremities. Intact sensation to light touch in all extremities, 2+ reflexes bilateral patella dens. Normal gait. No ataxia. Skin: Swelling, confluent erythema noted to the left ankle, erosion noted to the medial surface of left ankle, surgical site is present next to erosion, there is purulent drainage. Const Vital Signs: 06/30/22 12:42 06/30/22 15:22 06/30/22 15:22 Temperature 99 F 97.6 F L 97.6 F L Temperature Source Temporal Temporal Temporal Pulse Rate 88 76 76 Respiratory Rate 14 16 16 Blood Pressure 142/92 H 134/93 H 143/93 H Blood Pressure Mean 108 106 109 Pulse Ox 98 100 100 Oxygen Delivery Method Room Air Room Air Room Air MDM MDM MDM Narrative Medical decision making narrative: Chief Complaint: External records reviewed: Seen by Dr. Bolton podiatry on 06/11/2022 approximate 3 weeks prior to arrival was diagnosed with non-pressure chronic ulcer of the left foot, ORIF left foot, infection of left foot, exposed orthopedic hardware. Underwent debridement, tissue samples were obtained. I considered the following differential diagnosis: Septic arthritis, infected orthopedic hardware, cellulitis, failure of outpatient antibiotic Exam consistent with cellulitis. No obvious signs of septic arthritis. No indication for arthrocentesis at this time given there is overlying cellulitis and concern for introducing infection to the joint. X-rays without evidence of hardware failure, fracture or dislocation. Did discuss case with Dr. Bolton the patient's occupational hygienist who stated the patient has been compliant with her antibiotics (which she says she has been taking everyday as prescribed) she should come into the emergency department for empiric antibiotic therapy, infectious ease consultation and podiatry evaluation. He recommended the patient be admitted to medicine. I discussed the case with internal medicine doctor Dr. Chance who wanted to communicate with Dr. Bolton to determine the best disposition for the patient. Dr. Chance illness we will communicate with p.m. physician as to final disposition decided by Dr. Bolton and Dr. Chance. Factors affecting care: Orthopedic hardware Social determinants of health: Polysubstance abuse History obtained from others: None Shared decision making: I will have a discussion with the patient and or visitors regarding risk/benefits of further testing or admission. They will be made aware of of the risk/benefits inherent in this decision they will be given the opportunity to voice understanding. Consults: Podiatry, Internal Medicine Lab Data Attestation: I reviewed the patient's lab results. Lab results narrative: CBC with no leukocytosis, anemia, no thrombocytopenia BMP with mild hypokalemia, no anion gap/end-organ hypoperfusion CRP mildly elevated ESR within normal Labs: Laboratory Results - last 24 hr 06/30/22 06/30/22 14:15 14:15 WBC 6.4 RBC 3.75 L Hgb 11.6 L Hct 33.8 L MCV 90.1 MCH 30.9 MCHC 34.3 RDW Std Deviation 42.2 RDW Coeff of Soila 12.7 Plt Count 172 MPV 11.7 ESR 22 Sodium 141 Potassium 3.4 L Chloride 107 Carbon Dioxide 30.0 Anion Gap 4 L BUN 15 Creatinine 0.84 Est GFR (MDRD) Af Amer 96 Est GFR (MDRD) Non-Af 79 BUN/Creatinine Ratio 18.0 Glucose 137 H Calcium 8.6 C-React Prot Ext Range 48.50 H Radiography Diagnostic Testing: Clinical Impression(s) from Imaging Studies Ankle X-Ray 06/30/22 14:05 IMPRESSION: Status post ORIF of the talus as well as the medial malleolus. There is good alignment. Persistent soft tissue swelling. Electronically Signed: Emile Esteban MD at 14:36 EDT , Foot X-Ray 06/30/22 14:05 IMPRESSION: Status post ORIF of the talus as well as the medial malleolus. Diffuse soft tissue swelling. Electronically Signed: Emile Esteban MD at 14:35 EDT , Discharge Plan Triage Chief Complaint: Cellulitis ED Provider: Tom Naranjo Dx/Rx/DC Orders Clinical Impression: Cellulitis, Failure of outpatient treatment Prescriptions: No Action levofloxacin 750 mg tablet 750 mg PO DAILY 56 Days Qty: 56 0RF naproxen sodium [Aleve] 220 mg Tablet 220 mg PO BID PRN (Reason: Pain) Primary Care Provider: Care Physician,No Primary Referrals: Care Physician,No Primary [Primary Care Provider] - Disposition Disposition: Acute Care Hospital [facility]
--- NOTE | 2022-06-30 14:05 | RAD_ITS ---
STUDY: X-RAY - LEFT ANKLE REASON FOR EXAM: Female, 42 years old. Ankle pain TECHNIQUE: 3 view(s) of the ankle. COMPARISON: Comparison is made with prior study June 10, 2022. FINDINGS: Normal visualized distal tibia and fibula. The patient is status post ORIF of the medial distal tibia. There is good alignment. Normal tibiotalar articulation and ankle mortise. Prior ORIF of the talus. The visualized subtalar, talonavicular, calcaneocuboid and tarsal articulations are normal. Diffuse soft tissue swelling. RAD/Ankle min 3 Views IMPRESSION: Status post ORIF of the talus as well as the medial malleolus. There is good alignment. Persistent soft tissue swelling. Electronically Signed: Emile Esteban MD at 14:36 EDT ,
--- NOTE | 2022-06-30 14:05 | RAD_ITS ---
STUDY: X-RAY - LEFT FOOT CLINICAL: Female, 42 years old. Ankle pain TECHNIQUE: 3 view(s) of the foot. COMPARISON: Comparison is made with prior study dated June 10, 2022. FINDINGS: Normal talus, calcaneus, and tarsal bones. The patient is status post ORIF of the talus. Normal metatarsi. Normal metatarsophalangeal joint of the great toe. Normal tibial and fibular sesamoid bones. Normal interphalangeal joint of the great toe. Normal phalanges of the great toe. Normal second through fifth metatarsophalangeal joints. Normal interphalangeal joints and phalanges of the lesser toes. Diffuse soft tissue swelling. RAD/Foot min 3 Views IMPRESSION: Status post ORIF of the talus as well as the medial malleolus. Diffuse soft tissue swelling. Electronically Signed: Emile Esteban MD at 14:35 EDT ,
[2022-06-30 14:25] LABS: Erythrocyte Sedimentation Rate 22 mm/hr (0-30)
[2022-06-30 14:26] LABS: Hematocrit 33.8 % (37-47); Hemoglobin 11.6 g/dL (12.0-15.0); Mean Corp Hgb Conc 34.3 g/dL (32-36); Mean Corpuscular Hgb 30.9 pg (27.0-32.0); Mean Corpuscular Volume 90.1 fL (81-99); Mean Platelet Vol. 11.7 fl (6.2-12.0); Platelet Count 172 K/mm3 (150-450); RBC Distribution Width CV 12.7 % (11.6-14.6); RBC Distribution Width SD 42.2 fl (35.1-43.9); Red Blood Count 3.75 M/mm3 (4.2-5.4); White Blood Count 6.4 K/mm3 (4.4-11.0)
[2022-06-30 14:36] LABS: Anion Gap 4 (5-15); BUN 15 mg/dL (7-18); Calcium,Total 8.6 mg/dL (8.5-10.1); Chloride 107 mmol/L (98-107); Creatinine, Serum 0.84 mg/dL (0.55-1.02); EST Glomerular Filtration Rate 79 mL/min (>60); Est Glom Filt Rate - Afr Amer 96 mL/min (>60); Glucose 137 mg/dL (74-106); Potassium 3.4 mmol/L (3.5-5.1); Sodium Level 141 mmol/L (136-145)
[2022-06-30 15:10] VITALS: BMI 19.5
[2022-06-30 15:22] VITALS: BP 134/93; BP 143/93; PULSE 76; RESP 16; TEMP 36.4; O2SAT 100
--- NOTE | 2022-06-30 15:36 | CM.ED ---
Social Work Note Referral Source: Case find Referral reason: no PCP SW met with patient and introduced herself and role as [facility] Documentation Consultant. Patient was laying in hospital bed and agreeable to speak with social work. SW inquired about patient's insurance and current PCP. Patient verified her insurance and reports no current PCP. SW provided patient with a list of PCPs in [place] in network with her insurance accepting new patients. Patient was receptive towards list and voiced no other needs at this time. SW remains available if needs arise. Shweta Omalley [employer]
[2022-06-30] MEDS: Vancomycin IV 1,000 MG/200 ML BAG 200 MG IV (16:10)
[2022-06-30 17:08] VITALS: BP 144/97; PULSE 84; RESP 16; TEMP 36.6; O2SAT 100
--- NOTE | 2022-06-30 18:10 | CON.PCM_ITS ---
Assessment & Plan Assessment/Plan (1) Status post open reduction and internal fixation (ORIF) of fracture: (2) Non-pressure chronic ulcer of other part of left foot with fat layer exposed: (3) Polysubstance abuse: (4) Tobacco abuse: PLAN: Plan Patient seen and evaluated Discussed performing debridement of the ulcerative site bedside today patient was in agreement upon to the point of performing localized numbing injection in which patient then refused injection and further debridement due to fear of pa in. I did discuss that this is necessary for healing however she continues to refuse debridement today. She states she will be open to debridement in the wound center if no injection is performed prior. Ulceration to the medial aspect of the left lower extremity overlying the medial malleolus with an 80/20 mixture of granular to fibrotic tissue. No purulent drainage, no palpable fluctuance/bogginess, no visible abscess, no malodor, no erythema about the wound margins, no lymphangitis. No exposure of hardware noted. Ulcerative site has improved with use of advanced wound care graft previously placed on 06/11/2022. Site demonstrates no clinical signs of infection. WBC 6.4, ESR 22, CRP 48.5. Patient is noted to have continued edema about the ankle with more significant edema of the forefoot due to continued noncompliance of elevation. There is slight rubor about the forefoot consistent with the edema. Despite improvement in the wound she is still at risk of infection and ultimately proximal amputation. Site was then cleansed with normal sterile saline painted with Betadine and dressed with dry sterile dressing and Grover under mild compression. A CAM walker was applied to the left lower extremity. Discussed with patient that this is for protection of the site. Discussed with her that she can not walk in this boot yet. She is to remain nonweightbearing to the left lower extremity. Discussed that she is to change the dressings every other day with Betadine and dry sterile dressing. A repeat discussion was had with her again today about her noncompliance and showing for office appointment/wound care appointment. It was discussed again that she is at high risk for lower extremity amputation due to noncompliance. Discussed with her that she needs to be seen in the wound care center for continual debridement in addition to placement of advanced wound care product in order to boost healing. She voices understanding of our discussion again today. However, she is voiced understanding in the past and continues to demonstrate compliance issues with maintaining appearances. She is to continue taking oral antibiotic Levaquin 750 mg p.o. daily. She did receive dose of IV antibiotics in ED. I feel patient has not been taking antibiotics consistent and this was again stressed to her that she needs to continue to take the antibiotics and keep all postoperative appointments. She has an appointment with infectious disease, Dr. Fine on 07/07/2022. I dis cussed with her that she must keep this appointment. She voices understanding of this. Okay to DC home from podiatry standpoint. She is to follow-up in the wound care center with me next week. Jr. Mikhail MurciaP.M. [facility] [phone] HPI Consult Data Date of Consult: 06/30/22 HPI Narrative Reason for Consultation: Left lower extremity wound and pain HPI Narrative: FARHAN ANDREWS, is a 42 F who presents to the [facility] with pain in the left foot and ankle. She is status post ORIF of the talus and medial malleolus on 05/04/2022. Previously admitted to [facility] on 06/10/2022 for an infected left lower extremity wound. Patient has a history of noncompliance and frequent no-shows for appointments in the postoperative period. Diagnostic data obtained in the ED today demonstrates WBC of 6.4, ESR 22, CRP 48.5. Patient afebrile and nontoxic-appearing. Patient currently taking Levaquin 750 mg daily, however I do not believe she is continuing to take the oral antibiotic as instructed. Patient does state that she does not always elevate the foot which has contributed to significant edema about the forefoot with some MARY ankle edema. She has remained compliant nonweightbearing status to the left lower extremity with use of her crutches. Does have tenderness to the wound and about the ankle, this has been persistent since surgery. She was seen today in the ED for evaluation as she had received dose of IV antibiotics. [facility] Medical History Bipolar 1 disorder Drug use Head trauma History of alcohol abuse History of tobacco abuse HTN (hypertension) Marijuana abuse Smoker Home Medications levofloxacin 750 mg tablet 750 mg PO DAILY Infection 8 weeks #56 tabs 06/16/22 [Rx Last Taken 06/30/22] naproxen sodium 220 mg tablet (Aleve) 220 mg PO BID PRN Pain 06/30/22 [History Last Taken 06/29/22] Allergy/AdvReac Type Severity Reaction Status Date / Time No Known Allergies Allergy Verified 06/30/22 12:41 Family History (Updated 06/10/22 @ 16:38 by Rosalee Whitehead) Other Lung cancer Surgical History (Updated 06/30/22 @ 15:15 by Araceli Phillips) H/O brain surgery History of ankle surgery Hx of cholecystectomy Social History Smoking Status: Light Smoker (<10/day) ROS Constitutional Constitutional: Denies body ache(s), chills, fatigue or headache(s) Eyes Eyes: Denies burning, change in vision, diplopia or loss of vision ENT HEENT: Denies dysphagia, nasal congestion or sore throat Cardiovascular Cardiovascular: Denies chest pain, claudication, cold extremities or palpitations Respiratory/Chest Respiratory/Chest: Denies chest congestion, cough or dyspnea Gastrointestinal Gastrointestinal: Denies abdominal pain, constipation, diarrhea, nausea or vomiting Genitourinary Genitourinary: Denies dysuria, urinary frequency, urinary hesitancy, urinary incontinence or urinary urgency Musculoskeletal Musculoskeletal: Denies joint pain, joint stiffness or joint swelling Integumentary Integumentary: Denies lesions, pruritus or rash Neurologic Neurologic: Denies dizziness, frequent falls, numbness or seizures Endocrine Endocrinology: Denies polydipsia, polyphagia or polyuria Hematologic/Lymphatic Hematologic/Lymphatic: Denies easy bleeding or easy bruising Allergic/Immunologic Allergic/Immunologic: Denies wheezing or asthma Physical Exam Const alert, oriented x3 and no apparent distress General Appearance: cooperative and comfortable HEENT normocephalic Eyes General Eye: normal appearance of both eyes Neck General: normal visual inspection Lymph Lymphatic: no lymphadenopathy noted and no lymphedema noted Resp normal respiratory effort and normal air movement Cardio regular rate and regular rhythm Extremity normal capillary refill, no joint enlargement and no calf tenderness Extremity Narrative: DP and PT pulses are palpable with adequate capillary fill time brisk to digits. There is persistent nonpitting edema about the ankle and forefoot which has been consistent in her postoperative period secondary to noncompliance with lower extremity elevation. There is some slight rubor about this lower extremity secondary to the edema. She does exhibit pain to palpation about the wound and foot. Skin no rashes or lesions noted, skin turgor normal and no jaundice Wound Narrative: Ulceration to the medial aspect of the left lower extremity overlying the medial malleolus with an 80/20 mixture of granular to fibrotic tissue. No purulent drainage, no palpable fluctuance/bogginess, no visible abscess, no malodor, no erythema about the wound margins, no lymphangitis. No exposure of hardware noted. Neuro moves all extremities Lab / Micro Data Result Diagrams: 06/30/22 14:15 06/30/22 14:15 Labs: Laboratory Results - last 24 hr 06/30/22 14:15: WBC 6.4, RBC 3.75 L, Hgb 11.6 L, Hct 33.8 L, MCV 90.1, MCH 30.9, MCHC 34.3, RDW Std Deviation 42.2, RDW Coeff of Soila 12.7, Plt Count 172, MPV 11.7, ESR 22 06/30/22 14:15: Sodium 141, Potassium 3.4 L, Chloride 107, Carbon Dioxide 30.0, Anion Gap 4 L, BUN 15, Creatinine 0.84, Est GFR (MDRD) Af Amer 96, Est GFR (MDRD) Non-Af 79, BUN/Creatinine Ratio 18.0, Glucose 137 H, Calcium 8.6, C-React Prot Ext Range 48.50 H Radiology Impression Ankle X-Ray 06/30/22 14:05 IMPRESSION: Status post ORIF of the talus as well as the medial malleolus. There is good alignment. Persistent soft tissue swelling. Electronically Signed: Emile Esteban MD at 14:36 EDT , Foot X-Ray 06/30/22 14:05 IMPRESSION: Status post ORIF of the talus as well as the medial malleolus. Diffuse soft tissue swelling. Electronically Signed: Emile Esteban MD at 14:35 EDT ,
--- NOTE | 2022-06-30 21:26 | PN.HOSP_ITS ---
Reason for Visit Reason for Visit: Diagnoses Other psychoactive substance abuse, uncomplicated (06/30/22) Non-pressure chronic ulcer of other part of left foot with fat layer exposed (06/30/22) Tobacco use (06/30/22) Personal history of (healed) traumatic fracture (06/30/22) Other specified postprocedural states (06/30/22) Subjective Subjective 42-year old female with a history of alcoholism and polysubstance abuse who recently had an ORIF of an ankle fracture and then debridement about 2 weeks ago secondary to infection presents to the hospital with redness. She states that she does not really lift her leg and lets it hang which could be contributing to the redness and edema. She denies any fevers and does not have a leukocytosis here in the hospital. Looks about the same per podiatry as it did in the office about a week and a half ago. She is supposed to be on 8 weeks of p.o. Levaquin which given her history of compliance issues prior to this 100% convinced that she does take it as prescribed. Objective Data Objective Data Vital Signs: Vital Signs Temp Pulse Resp BP Pulse Ox O2 Del Method 97.9 F 84 16 144/97 H 100 Room Air 06/30/22 17:08 06/30/22 17:08 06/30/22 17:08 06/30/22 17:08 06/30/22 17:08 06/30/22 17:08 Oxygen Delivery Method Room Air Weight: 125 lb 0.034 oz Body Mass Index (BMI) 19.5 Intake & Output: Intake and Output for Last 24 Hours 06/29/22 06/30/22 07/01/22 03:59 03:59 03:59 Intake Total 300 / 300 Balance 300 / 300 Lab / Micro Data Result Diagrams: 06/30/22 14:15 06/30/22 14:15 Labs: Laboratory Results - last 24 hr 06/30/22 14:15: WBC 6.4, RBC 3.75 L, Hgb 11.6 L, Hct 33.8 L, MCV 90.1, MCH 30.9, MCHC 34.3, RDW Std Deviation 42.2, RDW Coeff of Soila 12.7, Plt Count 172, MPV 11.7, ESR 22 06/30/22 14:15: Sodium 141, Potassium 3.4 L, Chloride 107, Carbon Dioxide 30.0, Anion Gap 4 L, BUN 15, Creatinine 0.84, Est GFR (MDRD) Af Amer 96, Est GFR (MDRD) Non-Af 79, BUN/Creatinine Ratio 18.0, Glucose 137 H, Calcium 8.6, C-React Prot Ext Range 48.50 H Radiography Diagnostic Testing: Radiology Impression Ankle X-Ray 06/30/22 14:05 IMPRESSION: Status post ORIF of the talus as well as the medial malleolus. There is good alignment. Persistent soft tissue swelling. Electronically Signed: Emile Esteban MD at 14:36 EDT , Foot X-Ray 06/30/22 14:05 IMPRESSION: Status post ORIF of the talus as well as the medial malleolus. Diffuse soft tissue swelling. Electronically Signed: Emile Esteban MD at 14:35 EDT , Physical Exam Narrative General: Alert, Oriented x3, Cooperative, No apparent distress HEENT: Atraumatic, PERRLA, EOMI, Normocephalic Oral: Moist Mucosa Neck: Supple, No JVD Lungs: Clear to auscultation, Normal air movement, No rhonchi, No wheeze, No rales Cardiovascular: Regular rate, Regular Rhythm, Normal S1, Normal S2, No murmurs Abdomen: Soft, Non Tender, Non-Distended, No Hepato-splenomegaly Extremities: Edema left foot, Capillary Refill Less than 3 Seconds Skin: Scar and ulcer appear noninfected, redness is not warm, and is not tender to palpation Musculoskeletal: No Tenderness to Palpation of Joints or Extremities Neurological: Cranial nerves II-XII grossly intact, Motor Exam 5/5 strength throughout, Sensory exam intact to light touch and pain Psych/Mental Status: Flat affect Assessment & Plan Assessment/Plan (1) Status post open reduction and internal fixation (ORIF) of fracture: PLAN: Plan 1. Postoperative complication of ORIF and wound debridement of the left foot ? Not convinced this is a failure of outpatient antibiotics as I am not convinced that she takes her Levaquin as she is supposed ? She has been noncompliant with outpatient follow-ups to podiatry in the wound care ? Informed her that she needs to continue with the Levaquin as prescribed and she also needs to continue with foot elevation which she has not been doing which is likely causing the redness and the edema that we are seeing. ? I discussed the case both with fan blade aligner who has been taking care of her as well as the ED doc and we are all in agreement that given the lack of fever and white count that she is stable for discharge home. She needs to follow-up as an outpatient to the wound care center and she needs to be compliant with the postoperative interventions as well as the antibiotics. Charges/Coding Visit Charges Office Visits / Consults: [id number] ED Visit; Low/Mod Severity
== END 2022-06-30 18:25 | disposition home or self-care (01) ==
PROVIDERS: Emergency Provider Emergency Medicine; Visit Provider Emergency Medicine
DX: L03.90 Cellulitis, unspecified (principal); L97.522 Non-pressure chronic ulcer of other part of left foot with fat layer exposed; I10 Essential (primary) hypertension; Z98.890 Other specified postprocedural states; Z91.14 Patient's other noncompliance with medication regimen
CPT/HCPCS: 73610; 73630; 80048; 85027; 85652; 86140; 96365; 96367; 99282; J7050; A4216

== ENCOUNTER 2022-07-08 08:02 | Outpatient (RCR) | payer MEDICAID, SELFPAY ==
[2022-07-08 12:51] VITALS: BP 179/103; PULSE 101; TEMP 36; BMI 39.1
== END 2022-07-09 23:59 | disposition home or self-care (01) ==
LOC: WC 08:02
PROVIDERS: PCP Nurse Practitioner Family; Referring Provider Student in an Organized Health Care Education/Training Program; Visit Provider Student in an Organized Health Care Education/Training Program
DX: Z09 Encounter for follow-up examination after completed treatment for conditions other than malignant neoplasm (principal)

== ENCOUNTER 2022-10-19 16:33 | Emergency (ER) | payer MEDICAID, SELFPAY ==
[2022-10-19 16:34] VITALS: BP 142/85; PULSE 88; RESP 16; TEMP 36.2; O2SAT 100
--- NOTE | 2022-10-19 16:40 | RAD_ITS ---
STUDY: X-RAY - LEFT ANKLE REASON FOR EXAM: Female, 42 years old. PAIN SWELLING TECHNIQUE: 3 view(s) of the ankle. COMPARISON: 06/30/2022. FINDINGS: Since prior study, patient has developed lucencies through the dome of the talus which were not present previously. These suggest osteolysis/fractures. Findings could represent avascular necrosis. All orthopedic screws and fixation hardware are stable. Worsening of soft tissue swelling. Unremarkable visualized calcaneus. The visualized subtalar, talonavicular, calcaneocuboid and tarsal articulations are normal. RAD/Ankle min 3 Views IMPRESSION: Abnormal appearance the talus, since prior exam. Findings suggest developing avascular necrosis. Infection not excluded. Electronically Signed: Tres Lares MD at 16:58 EDT ,
--- NOTE | 2022-10-19 21:32 | US_ITS ---
STUDY: VENOUS DOPPLER ULTRASOUND - LEFT LOWER EXTREMITY REASON FOR EXAM: Female, 42 years old. LT ANKLE SWELLING TECHNIQUE: Ultrasound evaluation of the deep vein system to include frederick-scale imaging and compression was performed. Frederick-scale imaging and Doppler sonographic evaluation, including duplex spectral analysis and qualitative color flow sonography, was performed. COMPARISON: None. FINDINGS: Common Femoral Vein: Normal compression, spontaneity and augmentation. Normal color Doppler. Common Femoral Vein/Greater Saphenous Junction: Normal compression, spontaneity and augmentation. Normal color Doppler. Femoral Proximal: Normal compression, spontaneity and augmentation. Normal color Doppler. Femoral Middle: Normal compression, spontaneity and augmentation. Normal color Doppler. Femoral Distal: Normal compression, spontaneity and augmentation. Normal color Doppler. Popliteal Vein: Normal compression, spontaneity and augmentation. Normal color Doppler. Posterior Tibial Vein: Normal compression, spontaneity and augmentation. Normal color Doppler. Peroneal Vein: Normal compression, spontaneity and augmentation. Normal color Doppler. US/Venous Duplex Imag/Limited/Uni IMPRESSION: No evidence for DVT. Electronically Signed: Tres Lares MD at 22:17 EDT ,
[2022-10-19] MEDS: Ketorolac 15 MG/ML Vial IV (22:10)
[2022-10-19 22:22] LABS: Absolute Lymphocyte Count 2.05 X10^3/uL (0.83-4.51); Absolute Neutrophil Count 3.1 X10^3/uL (2.0-7.7); Basophil# 0.03 X10^3/uL; Basophil% 0.5 % (0-1); Eosinophils% 1.7 % (0-5); Hematocrit 41.5 % (37-47); Hemoglobin 14.3 g/dL (12.0-15.0); Lymphocyte # 2.05 X10^3/ul (0.83-4.51); Lymphocyte % 34.5 % (19-41); Mean Corp Hgb Conc 34.5 g/dL (32-36); Mean Corpuscular Volume 89.8 fL (81-99); Mean Platelet Vol. 10.9 fl (6.2-12.0); Monocyte# 0.68 X10^3/uL; Monocyte% 11.4 % (0-10); NRBC Flagged by Analyzer 0 % (0-5); Neutrophil # 3.07 X10^3/uL (2.7-7.7); Neutrophil % 51.7 % (47-70); Platelet Count 197 K/mm3 (150-450); RBC Distribution Width CV 14.3 % (11.6-14.6); RBC Distribution Width SD 46.6 fl (35.1-43.9); Red Blood Count 4.62 M/mm3 (4.2-5.4); White Blood Count 5.9 K/mm3 (4.4-11.0)
[2022-10-19 22:37] LABS: Anion Gap 3 (5-15); BUN 17 mg/dL (7-18); BUN/Creat Ratio 22.7 RATIO (10-20); CRP < 2.90 mg/L (0.0-3.0); Chloride 107 mmol/L (98-107); Creatinine, Serum 0.75 mg/dL (0.55-1.02); EST Glomerular Filtration Rate 89 mL/min (>60); Est Glom Filt Rate - Afr Amer 108 mL/min (>60); Estimated Creatinine Clearance 88.65 ml/min; Glucose 93 mg/dL (74-106); Potassium 3.7 mmol/L (3.5-5.1); Sodium Level 138 mmol/L (136-145)
[2022-10-19 22:40] LABS: Erythrocyte Sedimentation Rate 8 mm/hr (0-30)
--- NOTE | 2022-10-19 22:57 | ED.VIS.LOWEX ---
HPI History of Present Illness Chief Complaint: Lower Extremity Injury Informant: patient Narrative Narrative: Patient is a 42-year-old female with history of ORIF of her left ankle By Dr. Bolton with subsequent left foot infection and issues with postoperative pain. She has a history of tobacco use (she states she vapes) as well as drug abuse presenting with worsening left ankle swelling and pain. Patient is concerned might be something wrong with her hardware. States she is currently residing at [facility] [place] [id number]. She notes that she stopped wearing her walking boot of about 4 to 5 days ago. She states she was having a lot of pain with walking associate with her walking boot will do but she is also having swelling and pain without it. She had a knee scooter but is currently in storage. She does not have crutches. No fever or chills reported. No new numbness or tingling. She states a lot of this pain has been ongoing since her surgery. She states she has not been following up well with her surgeon and patient called today because she was embarrassed to. PFSH PFSH Medical History Bipolar 1 disorder Drug use Head trauma History of alcohol abuse History of tobacco abuse HTN (hypertension) Marijuana abuse Smoker Home Medications levofloxacin 750 mg tablet 750 mg PO DAILY Infection 8 weeks #56 tabs 06/16/22 [Rx Last Taken 06/30/22] naproxen sodium 220 mg tablet (Aleve) 220 mg PO BID PRN Pain 06/30/22 [History Last Taken 06/29/22] ibuprofen 600 mg tablet 600 mg PO Q6H PRN PRN pain #20 TABLETS 10/19/22 [Rx Last Taken Unknown] Allergy/AdvReac Type Severity Reaction Status Date / Time No Known Allergies Allergy Verified 10/19/22 16:37 Family History Other Lung cancer Surgical History H/O brain surgery History of ankle surgery Hx of cholecystectomy Social History Smoking Status: Light Smoker (<10/day) ROS ROS ED Constitutional Constitutional ED: Denies chills or fever(s) Cardiovascular Cardiovascular: Denies chest pain Gastrointestinal Gastrointestinal: Denies nausea or vomiting Musculoskeletal Musculoskeletal: Reports other Details: left ankle pain Integumentary Denies rash Neurologic Neurologic: Denies paresthesias or weakness EXAM Physical Exam Const Vital Signs: 10/19/22 16:34 Temperature 97.2 F L Temperature Source Temporal Pulse Rate 88 Respiratory Rate 16 Blood Pressure 142/85 H Blood Pressure Mean 104 Pulse Ox 100 Oxygen Delivery Method Room Air Positive well nourished and well developed General Appearance ED: well developed HEENT Reports moist mucous membranes Chest Wall inspection of chest normal and palpation of chest normal Resp normal respiratory effort Cardio regular rate and regular rhythm Extremity Extremity Narrative: Surgical incisions over the anterior medial aspect of the left foot. No associated ulceration or wound. No cellulitic changes. Soft tissue swelling present. Normal De test. Soft tissue swelling over the posterior aspect of the ankle. Neuro oriented x3 and moves all extremities Sensorium / Orientation: alert Psych mental status grossly normal Skin no wounds MDM MDM MDM Narrative Medical decision making narrative: Patient is evaluated for ongoing ankle pain and swelling. She appears nontoxic in no acute distress. Vital signs are normal. She has good distal pulses. She does not have overlying cellulitic changes. She has decreased range of motion of her ankle and I suspect is secondary to her surgical status. X-ray shows postoperative changes on my interpretation but radiology did comment on abnormal appearance of the talus with possible developing avascular necrosis. Infection cannot be excluded. I spoke with Dr. Alonso, podiatry on-call, who states that if this is an avascular necrosis she should be nonweightbearing and they can follow-up in the office. Will obtain some basic labs including CRP and ESR to look for signs of joint space infection however I have a low suspicion based on physical exam. Patient has normal white count, normal CRP and a normal ESR. She is given dose of Toradol for pain control. She has a cam boot at home. She is instructed to go back in it. She is given crutches that she does not currently have her knee scooter since it is in storage. She will be given a prescription for NSAIDs. Is given return precautions. Discussed nicotine cessation. Venous duplex is obtained because of asymmetric swelling with the postoperative status. This is negative for DVT. Lab Data Attestation: I reviewed the patient's lab results. Labs: Laboratory Results - last 24 hr 10/19/22 22:10 WBC 5.9 RBC 4.62 Hgb 14.3 Hct 41.5 MCV 89.8 MCH 31.0 MCHC 34.5 RDW Std Deviation 46.6 H RDW Coeff of Soila 14.3 Plt Count 197 MPV 10.9 Immature Gran % (Auto) 0.200 Neut % (Auto) 51.7 Lymph % (Auto) 34.5 Hooker % (Auto) 11.4 H Eos % (Auto) 1.7 Baso % (Auto) 0.5 Absolute Neuts (auto) 3.1 Absolute Lymphs (auto) 2.05 Nucleated RBC % 0 ESR 8 Sodium 138 Potassium 3.7 Chloride 107 Carbon Dioxide 28.0 Anion Gap 3 L BUN 17 Creatinine 0.75 Estim Creat Clear Calc 88.65 Est GFR (MDRD) Af Amer 108 Est GFR (MDRD) Non-Af 89 BUN/Creatinine Ratio 22.7 H Glucose 93 Calcium 9.0 C-React Prot Ext Range < 2.90 Radiography Diagnostic Testing: Clinical Impression(s) from Imaging Studies Ankle X-Ray 10/19/22 16:40 IMPRESSION: Abnormal appearance the talus, since prior exam. Findings suggest developing avascular necrosis. Infection not excluded. Electronically Signed: Tres Lares MD at 16:58 EDT , Venous Duplex 10/19/22 21:32 IMPRESSION: No evidence for DVT. Electronically Signed: Tres Lares MD at 22:17 EDT , Management Discussion w/another healthcare provider: Cash Register Servicer Discharge Plan Triage Chief Complaint: Lower Extremity Injury ED Provider: Nadia Celis Dx/Rx/DC Orders Clinical Impression: Other acute postprocedural pain, Acute left ankle pain Instructions: ED Arthralgia Prescriptions: New ibuprofen 600 mg tablet 600 mg PO Q6H PRN PRN (Reason: pain) Qty: 20 0RF No Action levofloxacin 750 mg tablet 750 mg PO DAILY 56 Days Qty: 56 0RF naproxen sodium [Aleve] 220 mg Tablet 220 mg PO BID PRN (Reason: Pain) Primary Care Provider: Melanie Johnson NP Referrals: Kristopher Alonso DPM [Med Staff - Active Staff] - 1-2 Days if not improving Melanie Johnson NP, EXERCISE SCIENCE INSTRUCTOR-C [Primary Care Provider] - Activity Restrictions/Additional Instructions: No signs of infection of your ankle or malposition of the hardware. There is concern for possible avascular necrosis (where the bone does not have enough blood supply) of your talus bone. Please start wearing your boot again. Do not put any weight on your foot until you are cleared by podiatry. You have been prescribed an anti-inflammatory to help with your pain. Disposition Disposition: Home, Self Care
== END 2022-10-19 23:54 | disposition home or self-care (01) ==
PROVIDERS: Emergency Provider Emergency Medicine; PCP Nurse Practitioner Family; Visit Provider Emergency Medicine
DX: M25.572 Pain in left ankle and joints of left foot (principal); M79.89 Other specified soft tissue disorders; G89.18 Other acute postprocedural pain; I10 Essential (primary) hypertension; F17.290 Nicotine dependence, other tobacco product, uncomplicated; Z98.890 Other specified postprocedural states
CPT/HCPCS: 73610; 80048; 85025; 85652; 86140; 93971; 96374; 99283; A4216

== ENCOUNTER 2022-12-18 21:52 | Emergency (ER) | payer MEDICAID, SELFPAY ==
[2022-12-18 21:53] VITALS: BP 142/89; PULSE 66; RESP 16; TEMP 36.4; O2SAT 99; BMI 21.6
--- NOTE | 2022-12-18 22:58 | RAD_ITS ---
INDICATION: pain EXAMINATION/TECHNIQUE: X-RAY - LEFT XR Ankle Min 3 Views COMPARISON: 10/19/2022. FINDINGS: SOFT TISSUES: Diffuse soft tissue swelling. BONES/JOINTS: No acute fracture or dislocation. Internal fixation hardware in the distal tibia and talus appear stable. Stable lucencies within the talar dome. RAD/Ankle min 3 Views IMPRESSION: Chronic posttraumatic and postsurgical changes with overall exam stable as compared to 10/19/2022. Electronically Signed: Kristopher Ware DO at 23:32 EDT ,
--- NOTE | 2022-12-18 22:58 | ED.VIS.LOWEX ---
HPI History of Present Illness Chief Complaint: Wound Check Narrative Narrative: 42-year-old female presenting for wound check. She has history of ankle fracture status post ORIF. She used to see Dr. Bolton but states she was fired from his practice because she did not follow-up. She now sees Dr. Alonso. She states he saw him 2 weeks ago. She was put on Augmentin at that point. She states she usually would have Bactrim. She finished her 1 week antibiotic treatment and did not have any improvement. She states she tried to call him yesterday but was told she would get a call back on Tuesday. She states she feels like she has a fever but checked her temperature and she has not had one. She has had some redness and swelling to the left medial ankle where her ORIF was. PFSH PFSH Medical History Bipolar 1 disorder Drug use Head trauma Hepatitis C History of alcohol abuse History of tobacco abuse HSV infection HTN (hypertension) Marijuana abuse Skin cancer Smoker Home Medications ibuprofen 600 mg tablet 600 mg PO Q6H PRN PRN pain #20 TABLETS 10/19/22 [Rx Last Taken Unknown] chlorthalidone 25 mg tablet 25 mg PO DAILY #30 tabs 10/26/22 [Rx Last Taken Unknown] hydroxyzine HCl 10 mg tablet 10 mg PO Q8H PRN itching #20 tabs 11/16/22 [Rx Last Taken Unknown] doxycycline hyclate 100 mg capsule 100 mg PO BID #20 caps 12/19/22 [Rx Last Taken Unknown] Allergy/AdvReac Type Severity Reaction Status Date / Time No Known Allergies Allergy Verified 12/18/22 21:54 Family History Mother COPD (chronic obstructive pulmonary disease) Bowel disease Hypertension Father Cancer skin Brother Cancer lung Lung cancer Sister Kidney disease Surgical History (Updated 12/18/22 @ 23:34 by Marimar Davison) H/O brain surgery History of ankle surgery Hx of cholecystectomy S/P debridement Status post open reduction and internal fixation (ORIF) of fracture Social History housing: other details: at [facility] has around 13 roommates current occupational status: unemployed and disabled Smoking Status: Current every day smoker tobacco type: cigarettes Electronic Cigarette Use: not used alcohol intake: former year quit: 2022 substance use type: former substance user Date of last use: 07/2022 and methamphetamine caffeine: Yes seatbelt use: always do you feel safe at home: Yes ROS ROS ED Constitutional Constitutional ED: Denies chills, fever(s) or sweats Eyes Eyes: Denies blurry vision or change in vision ENT ENT ED: Denies ear pain or sore throat Cardiovascular Cardiovascular: Denies chest pain, palpitations or racing heartbeat Respiratory/Chest Respiratory/Chest: Denies cough, dyspnea or sputum Gastrointestinal Gastrointestinal: Denies abdominal pain, constipation, diarrhea, nausea or vomiting Genitourinary Genitourinary ED: Denies dysuria, hematuria or urinary frequency Musculoskeletal Musculoskeletal: Denies arthralgias, myalgias or neck pain Integumentary Reports other Details: Erythema, increased warmth, edema over left medial ankle. ; Denies abscess, Abrasions or rash Neurologic Neurologic: Denies headache(s), paresthesias or weakness Psychiatric Psychiatric: Denies anxiety, depression, suicidal ideation or suicidal thoughts Endocrine Endocrinology: Denies polydipsia or polyuria EXAM Physical Exam Const Vital Signs: 12/18/22 21:53 12/19/22 00:33 Temperature 97.6 F L Temperature Source Temporal Pulse Rate 66 60 Respiratory Rate 16 16 Blood Pressure 142/89 H Blood Pressure Mean 106 Pulse Ox 99 95 Oxygen Delivery Method Room Air Positive well nourished General Appearance ED: NAD HEENT Reports moist mucous membranes Resp normal respiratory effort Cardio regular rate and regular rhythm Neuro oriented x3 and CN's II-XII intact bilaterally Sensorium / Orientation: alert Motor Exam: strength 5/5 throughout Psych mental status grossly normal Skin Skin Narrative: Erythema, increased warmth, edema over left medial ankle. No lymphangitic streak. MDM MDM MDM Narrative Medical decision making narrative: Patient presenting with cellulitis over the left medial ankle. She has history of ORIF. She is see Dr. Bolton she claims and states that she was fired from his practice because she did not follow-up with him. She states she is seeing Dr. Alonso and was given Augmentin 2 weeks ago. She finished the course after 1 week but did not call him to set up a follow-up appointment when the antibiotic treatment was not working. We will obtain a CBC to assess white blood cell count, hemoglobin, platelets. BMP to assess renal function electrolytes. ESR and CRP to assess for increased inflammatory markers. X-ray of the left ankle will be obtained as well. CBC showed a normal white blood cell count of 5.0. Hemoglobin stable at 12.3. Platelets slightly low at 148. Renal function and electrolytes unremarkable. CRP less than 2.90 ESR 5. X-ray of the left ankle does not show any sign of osteomyelitis or fracture. Given that this is likely just the early cellulitis I will put her on doxycycline and have her follow-up with Dr. Alonso. Impression: 1. Left ankle cellulitis Lab Data Labs: Laboratory Results - last 24 hr 12/18/22 23:10 WBC 5.0 RBC 3.93 L Hgb 12.3 Hct 36.9 L MCV 93.9 MCH 31.3 MCHC 33.3 RDW Std Deviation 47.0 H RDW Coeff of Soila 13.7 Plt Count 148 L MPV 11.7 Immature Gran % (Auto) 0.400 Neut % (Auto) 48.8 Lymph % (Auto) 36.5 Blanco % (Auto) 11.1 H Eos % (Auto) 2.6 Baso % (Auto) 0.6 Absolute Neuts (auto) 2.4 Absolute Lymphs (auto) 1.81 Nucleated RBC % 0 ESR 5 Sodium 140 Potassium 3.7 Chloride 109 H Carbon Dioxide 27.0 Anion Gap 4 L BUN 16 Creatinine 0.70 Estim Creat Clear Calc 100.77 Est GFR (MDRD) Af Amer 117 Est GFR (MDRD) Non-Af 97 BUN/Creatinine Ratio 22.9 H Glucose 89 Calcium 8.9 C-React Prot Ext Range < 2.90 Radiography Diagnostic Testing: Clinical Impression(s) from Imaging Studies Ankle X-Ray 12/18/22 22:58 IMPRESSION: Chronic posttraumatic and postsurgical changes with overall exam stable as compared to 10/19/2022. Electronically Signed: Kristopher Ware DO at 23:32 EDT , Discharge Plan Triage Chief Complaint: Wound Check ED Provider: Hermilo Lei Dx/Rx/DC Orders Instructions: ED Wound Check (Infection) Prescriptions: New doxycycline hyclate 100 mg capsule 100 mg PO BID Qty: 20 0RF No Action chlorthalidone 25 mg tablet 25 mg PO DAILY Qty: 30 1RF hydroxyzine HCl 10 mg tablet 10 mg PO Q8H PRN (Reason: itching) Qty: 20 0RF ibuprofen 600 mg tablet 600 mg PO Q6H PRN PRN (Reason: pain) Qty: 20 0RF Primary Care Provider: Danielle Stallings Referrals: Danielle Stallings MD [Primary Care Provider] - Kristopher Alonso DPM [Med Staff - Active Staff] - Disposition Disposition: Home, Self Care Discharge Date/Time: 12/19/22 00:33
[2022-12-18 23:15] LABS: Absolute Lymphocyte Count 1.81 X10^3/uL (0.83-4.51); Absolute Neutrophil Count 2.4 X10^3/uL (2.0-7.7); Basophil# 0.03 X10^3/uL; Basophil% 0.6 % (0-1); Eosinophil# 0.13 X10^3/uL; Eosinophils% 2.6 % (0-5); Hematocrit 36.9 % (37-47); Hemoglobin 12.3 g/dL (12.0-15.0); Lymphocyte # 1.81 X10^3/ul (0.83-4.51); Lymphocyte % 36.5 % (19-41); Mean Corp Hgb Conc 33.3 g/dL (32-36); Mean Corpuscular Hgb 31.3 pg (27.0-32.0); Mean Corpuscular Volume 93.9 fL (81-99); Mean Platelet Vol. 11.7 fl (6.2-12.0); Monocyte# 0.55 X10^3/uL; Monocyte% 11.1 % (0-10); NRBC Flagged by Analyzer 0 % (0-5); Neutrophil # 2.42 X10^3/uL (2.7-7.7); Neutrophil % 48.8 % (47-70); Platelet Count 148 K/mm3 (150-450); RBC Distribution Width CV 13.7 % (11.6-14.6); Red Blood Count 3.93 M/mm3 (4.2-5.4)
[2022-12-18 23:21] LABS: Erythrocyte Sedimentation Rate 5 mm/hr (0-30)
[2022-12-18 23:47] LABS: Anion Gap 4 (5-15); BUN 16 mg/dL (7-18); BUN/Creat Ratio 22.9 RATIO (10-20); CRP < 2.90 mg/L (0.0-3.0); Calcium,Total 8.9 mg/dL (8.5-10.1); Chloride 109 mmol/L (98-107); EST Glomerular Filtration Rate 97 mL/min (>60); Est Glom Filt Rate - Afr Amer 117 mL/min (>60); Estimated Creatinine Clearance 100.77 ml/min; Glucose 89 mg/dL (74-106); Potassium 3.7 mmol/L (3.5-5.1); Sodium Level 140 mmol/L (136-145)
[2022-12-19] MEDS: Doxycycline 100 MG CAPSULE PO (00:25)
[2022-12-19 00:33] VITALS: PULSE 60; RESP 16; O2SAT 95
== END 2022-12-19 00:33 | disposition home or self-care (01) ==
PROVIDERS: Emergency Provider Student in an Organized Health Care Education/Training Program; PCP Internal Medicine; Visit Provider Student in an Organized Health Care Education/Training Program
DX: L03.116 Cellulitis of left lower limb (principal); F31.9 Bipolar disorder, unspecified; I10 Essential (primary) hypertension; F17.210 Nicotine dependence, cigarettes, uncomplicated
CPT/HCPCS: 73610; 80048; 85025; 85652; 86140; 99283; A4216

== ENCOUNTER → 2022-12-22 | Outpatient (CLI) | payer MEDICAID, SELFPAY | END | disposition home or self-care (01) | PROVIDERS: PCP Internal Medicine; Visit Provider Podiatrist | DX: L03.116 Cellulitis of left lower limb (principal) | CPT/HCPCS: 87070; 87075; 87205 ==

== ENCOUNTER 2022-12-30 18:49 | Emergency (ER) | payer MEDICAID, SELFPAY ==
[2022-12-30 18:51] VITALS: BP 131/108; PULSE 73; RESP 17; TEMP 36.4; O2SAT 98
--- NOTE | 2022-12-30 18:57 | RAD_ITS ---
STUDY: X-RAY - LEFT ANKLE REASON FOR EXAM: Female, 42 years old. TRAUMA TECHNIQUE: 3 view(s) of the ankle. COMPARISON: December 18, 2022 FINDINGS: Normal visualized distal tibia and fibula. Side plate and screws medial malleolus. Normal tibiotalar articulation and ankle mortise. Multiple screws and pins transfix the talus. Linear lucencies are noted within the talus. The visualized subtalar, talonavicular, calcaneocuboid and tarsal articulations are normal. The soft tissue structures are unremarkable. RAD/Ankle min 3 Views IMPRESSION: Nondisplaced comminuted fracture of the talus. This appears more conspicuous. Metallic fixation medial malleolus and talus. Electronically Signed: Shaquille Muniz MD at 20:02 EDT ,
[2022-12-30 21:53] VITALS: BMI 22.3
--- NOTE | 2022-12-30 21:53 | CT_ITS ---
We are attempting to reach an attending provider to discuss findings. An addendum with communication details will be sent when the communication is complete. STUDY: CT BILATERAL HIPS T PELVIS REASON FOR EXAM: Female, 42 years old. Fracture RADIATION DOSAGE (If Supplied By Facility): CTDIvol = ( 15.35 ) mGy, DLP = ( 370.34 ) mGycm TECHNIQUE: Transaxial imaging of the pelvis and bilateral hips was performed with oral contrast, and without intravenous administration of contrast material. Individualized dose optimization techniques were used for this CT. COMPARISON: May 02, 2021 CT ankle, ankle x-ray December 30, 2022, June 30, 2022 right ankle x-ray Findings: The patient is status post a reduction internal fixation of the right ankle and proximal foot As seen on the prior left ankle x-ray is the visualized sideplate and cortical screws transfixing the distal left femur. There is a cortical screw extending through the medial malleolus. There is a grouping of cortical screws within the talus with a moth-eaten appearance lucency surrounding the metallic structures. There is been migration of a midline talar cortical screw with the head of the screw sitting in the joint space with fragmentation. There are still fracture lines within the talus. There is small side plates on the medial side of the talus under which there is lucent bone. There is a healed fracture of the distal fibula. There is visualized soft tissue edema. On prior study May 20, 2022 there is also visualized fragmentation of the talus with intra-articular extension. The extent of bony resorption around the metallic structures is not as well appreciated as on the CT. CT/Extremity Lower without Contra IMPRESSION: Findings are highly suspicious for bony resorption around the hardware which includes the medial malleolar cortical screw and especially involving the talar hardware. There has been migration of the head of a midline talar cortical screw such that the head of the cortical screw is in the joint space of the ankle. There is a comminuted intra-articular fragmentation. There is a moth-eaten appearance of the talus portions of the distal fibula and distal tibia and medial malleolus. Findings are suspicious for infection and loosening of hardware and failure to heal. An acute fracture injury today is thought to be less likely. December 18, 2022 there is also visualized intra-articular fragmentation of the talus in close proximity of the cortical screw to the joint space. Electronically Signed: Saba Howard MD at 23:28 EDT Reading Location ID and State: [facility] / [place] Tel , Service support ,
--- NOTE | 2022-12-30 21:53 | ED.VIS.LOWEX ---
HPI History of Present Illness HPI Narrative: Patient presents with left ankle injury that occurred today. Patient fell off of her knee scooter tonight and reinjured her ankle. Patient has a history of a left ankle fracture that had screws and a plate placed back in April. Patient states she has been following with Dr. Bolton and Dr. Alonso for this. Patient states that she is supposed to have a CT scan of her ankle done this week. Patient denies any paresthesias or weakness. Patient is just concerned about the swelling that became worse after the fall. Chief Complaint: Lower Extremity Injury Informant: patient Occured/Mechanism Mechanism/Context: Yes fall Onset/Context/Timing Onset: Today Context: Sudden Onset Timing: Continuous Quality of Pain: Aching Location: Left ankle Worsened by: Nothing Relieved by: Nothing Associated Symptoms Associated Symptoms: Negative for Parasthesia, Weakness or Loss of Funtion PFSH PFSH Medical History Bipolar 1 disorder Drug use Head trauma Hepatitis C History of alcohol abuse History of tobacco abuse HSV infection HTN (hypertension) Marijuana abuse Skin cancer Smoker Home Medications ibuprofen 600 mg tablet 600 mg PO Q6H PRN PRN pain #20 TABLETS 10/19/22 [Rx Last Taken Unknown] chlorthalidone 25 mg tablet 25 mg PO DAILY #30 tabs 10/26/22 [Rx Last Taken Unknown] hydroxyzine HCl 10 mg tablet 10 mg PO Q8H PRN itching #20 tabs 11/16/22 [Rx Last Taken Unknown] doxycycline hyclate 100 mg capsule 100 mg PO BID #20 caps 12/19/22 [Rx Last Taken Unknown] Allergy/AdvReac Type Severity Reaction Status Date / Time No Known Allergies Allergy Verified 12/30/22 18:50 Family History Mother COPD (chronic obstructive pulmonary disease) Bowel disease Hypertension Father Cancer skin Brother Cancer lung Lung cancer Sister Kidney disease Surgical History H/O brain surgery History of ankle surgery Hx of cholecystectomy S/P debridement Status post open reduction and internal fixation (ORIF) of fracture Social History housing: other details: at [address] has around 13 roommates current occupational status: unemployed and disabled Smoking Status: Current every day smoker tobacco type: cigarettes Electronic Cigarette Use: not used alcohol intake: former year quit: 2022 substance use type: former substance user Date of last use: 07/2022 and methamphetamine caffeine: Yes seatbelt use: always do you feel safe at home: Yes ROS ROS ED Constitutional Constitutional ED: Denies chills or fever(s) Eyes Eyes: Denies blurry vision or change in vision ENT ENT ED: Denies rhinorrhea or sore throat Cardiovascular Cardiovascular: Denies chest pain or palpitations Respiratory/Chest Respiratory/Chest: Denies cough or dyspnea Gastrointestinal Gastrointestinal: Denies nausea or vomiting Genitourinary Genitourinary ED: Denies dysuria or hematuria Musculoskeletal Musculoskeletal: Denies back pain or neck pain Integumentary Reports rash; Denies abscess Neurologic Neurologic: Denies headache(s) or weakness Allergic/Immunologic Allergic/Immunologic ED: Denies mouth swelling or urticaria EXAM Physical Exam Const Vital Signs: 12/30/22 18:51 Temperature 97.6 F L Temperature Source Temporal Pulse Rate 73 Respiratory Rate 17 Blood Pressure 131/108 H Blood Pressure Mean 115 Pulse Ox 98 Oxygen Delivery Method Room Air Positive well nourished and well developed General Appearance ED: well developed and NAD HEENT Reports moist mucous membranes Neck full ROM and supple Extremity Extremity Narrative: There is tenderness and edema over the left ankle. There is no obvious deformity noted. Range of motion was slightly limited in all motions of the left ankle secondary to pain. Pedal pulses are equal bilaterally. There is no tenderness over the proximal fibula. There is no tenderness over the fifth metatarsal. Sensation was intact to light touch in all digits. Capillary refill was less than 2 seconds in all digits. Neuro oriented x3, CN's II-XII intact bilaterally, moves all extremities and no sensory deficits noted Sensorium / Orientation: alert Motor Exam: strength 5/5 throughout Psych mental status grossly normal MDM MDM MDM Narrative Medical decision making narrative: Differential diagnosis includes fracture, sprain, and hardware fracture or displacement. X-rays of the left ankle will be obtained to assess for fracture and hardware displacement or fracture. Radiography Diagnostic Testing: Clinical Impression(s) from Imaging Studies Ankle X-Ray 12/30/22 18:57 IMPRESSION: Nondisplaced comminuted fracture of the talus. This appears more conspicuous. Metallic fixation medial malleolus and talus. Electronically Signed: Shaquille Muniz MD at 20:02 EDT , X-rays of the left ankle were obtained. There are 3 views. On my independent interpretation, there is no acute fracture. There are old fractures of the talus with fixation screws in place. There are also healing fracture of the medial malleolus with fixation screws in place. Neurologist also interpreted the x-rays and agrees. CT scan of the left ankle was obtained. There is a talus fracture with fixation screws in place. There are also fixation screws noted in the medial malleolus. This was interpreted by the radiologist and was also dependently reviewed by myself. Treatment and Re-Evaluation Narrative: Case was discussed with Dr. Davidson. Due to the patient's previous compliance issues, CT scan of the ankle will be obtained here in the emergency department. Patient will be placed back in her walking boot and instructed to continue to use her knee scooter. Patient was instructed remain nonweightbearing in her left ankle. Patient was instructed to follow-up with Dr. Alonso in the office next week. Patient understood and was agreeable with the plan. All questions were answered. Discharge Plan Triage Chief Complaint: Lower Extremity Injury ED Provider: Jack Christopher Dx/Rx/DC Orders Clinical Impression: Closed fracture of left talus with delayed healing, Tobacco abuse Instructions: ED Ankle Fracture Prescriptions: No Action chlorthalidone 25 mg tablet 25 mg PO DAILY Qty: 30 1RF hydroxyzine HCl 10 mg tablet 10 mg PO Q8H PRN (Reason: itching) Qty: 20 0RF ibuprofen 600 mg tablet 600 mg PO Q6H PRN PRN (Reason: pain) Qty: 20 0RF doxycycline hyclate 100 mg capsule 100 mg PO BID Qty: 20 0RF Primary Care Provider: Danielle Stallings Referrals: Danielle Stallings MD [Primary Care Provider] - Kristopher Alonso DPM [Med Staff - Active Staff] - 3-5 Days Disposition Disposition: Home, Self Care
[2022-12-30 22:50] VITALS: PULSE 69; RESP 15; O2SAT 98
[2022-12-30 22:56] VITALS: BP 129/74; PULSE 63; RESP 17; O2SAT 98
== END 2022-12-30 23:09 | disposition home or self-care (01) ==
PROVIDERS: Emergency Provider Emergency Medicine; PCP Internal Medicine; Visit Provider Emergency Medicine
DX: S92.102 Unspecified fracture of left talus (principal); F31.9 Bipolar disorder, unspecified; V00.141A Fall from scooter (nonmotorized), initial encounter; I10 Essential (primary) hypertension; F17.210 Nicotine dependence, cigarettes, uncomplicated; Z79.899 Other long term (current) drug therapy
CPT/HCPCS: 73610; 73700; 99284

== ENCOUNTER → 2023-01-18 | Outpatient (CLI) | payer MEDICAID, SELFPAY | END | disposition home or self-care (01) | PROVIDERS: PCP Internal Medicine; Visit Provider Podiatrist Foot & Ankle Surgery | DX: L02.416 Cutaneous abscess of left lower limb (principal) | CPT/HCPCS: 87070; 87075; 87077; 87186; 87205 ==

== ENCOUNTER 2023-02-09 07:26 | Day surgery (SDC) | payer MEDICAID, SELFPAY ==
[2023-02-07 14:11] LABS: International Normalized Ratio 1.1; Partial Thromboplast Time 28.3 Seconds (24.1-36.2); Prothrombin Time (Protime)PT. 13.9 SECONDS (11.7-14.9)
[2023-02-07 14:32] LABS: AST(SGOT) 45 U/L (15-37); Alanine Aminotransfer ALT/SGPT 57 U/L (13-56); Albumin, Serum 3.7 g/dL (3.2-5.0); Alkaline Phosphatase 63 U/L (45-117); Bilirubin, Direct 0.14 mg/dL (0.00-0.30); Globulin 3.5 g/dL (2.2-4.2); Magnesium 1.7 mg/dL (1.6-2.6); Protein, Total 7.2 g/dL (6.4-8.2)
[2023-02-07 14:36] LABS: Hemoglobin A1c 4.9 % (3.8-5.6)
[2023-02-07 14:47] LABS: Vitamin D,25 Hydroxy 38.9 ng/mL
[2023-02-09 07:56] VITALS: BP 122/85; PULSE 84; RESP 16; TEMP 36.8; O2SAT 98; BMI 20.4
[2023-02-09 08:07] LABS: Internal QC Validated? YES +Cl - CLEAR BKGD; Pregnancy, Urine Negative Negative; Record Kit Lot#,Urine Preg 667200
--- NOTE | 2023-02-09 08:10 | PCM.OPRPT ---
Problems Associated Problem List Diagnoses (1) Pain due to internal orthopedic prosthetic devices, implants and grafts, initial encounter: (2) Cutaneous abscess of left lower limb: (3) Chronic osteomyelitis of left lower leg with draining sinus: (4) Non-pressure chronic ulcer of left ankle with fat layer exposed: Report of Operation Date of Procedure: 02/09/23 Pre-Operative Diagnosis: 1. Painful retained orthopedic hardware, left lower extremity 2. Chronic osteomyelitis with draining sinus, left lower extremity 3. Cutaneous abscess, left lower extremity 4. Nonpressure ulcer with fat exposed, left lower extremity 5. Avascular necrosis, talus, left lower extremity Post-Operative Diagnosis: 1. Painful retained orthopedic hardware, left lower extremity 2. Chronic osteomyelitis with draining sinus, left lower extremity 3. Cutaneous abscess, left lower extremity 4. Nonpressure ulcer with fat exposed, left lower extremity 5. Avascular necrosis, talus, left lower extremity Surgery/Procedure Performed:: 1. Incision and drainage, left lower extremity/ankle 2. Removal of painful retained hardware, tibia, left lower extremity 3. Partial excision of tibia, left lower extremity 4. Delayed primary closure, left lower extremity 5. Bone biopsy, talus, left lower extremity Description of Surgical Findings:: 1. Complete removal of the medial malleolus tibial hardware. 2. Soft bone to the colliculi of the medial malleolus/tibia, left lower extremity 3. Biopsies removed from the talus to be sent to pathology and microbiology, left lower extremity 4. Partial excision of tibia to be sent to pathology and microbiology, left lower extremity 5. Mucoid/fibrotic tissue appreciated to the incision at the level of the full-thickness ulceration, left lower extremity 6. Cannot rule out osteomyelitis to the tibia, left lower extremity Surgeon: Ernesto Astudillo program writer: Laquita Iglesias Type of Anesthesia: Block,Regional, General and Local Anesthesiologist: Jasiel Deng Special Medications: 1. 1 g vancomycin powder Specimen's removed: 1. Deep tissue cultures, microbiology culture and sensitivity 2. Partial excision of tibia, sent to pathology and microbiology for culture and sensitivity 3. Bone biopsy, talus, sent to pathology and microbiology for culture and sensitivity Drains: None Estimated Blood Loss (mL): 10 mL Fluids Replaced: Per anesthesia Description of Procedure: Indications For Operation: Ms. Armando is a 42-year-old female who was admitted to [facility] for painful retained hardware, cutaneous abscess, chronic osteomyelitis and full-thickness ulceration to the left leg. The patient has gone through multiple rounds of oral antibiotics. Patient is status post open reduction internal fixation to the talus approximately 10 months ago. Since then the patient has been following up in our office and recently had a CT scan that showed evidence of collapse of the talar dome to the left lower extremity secondary to AVN, this is also confirmed on plain film radiographs. This pathology all relates to the patient's Case 3 fracture back in April 2022. Due to the concern for osteomyelitis to the left tibia secondary to chronic abscess it had been necessary at this time to take the patient to the operating room to remove her painful retained hardware perform incision and drainage with partial excision of tibia and delayed primary closure of the full-thickness wound also obtaining deep tissue cultures bone and possible bone from the talus if accessible to relieve her constant pain and clear her infection. The nature of the problem, anticipated procedures, postop recovery/convalences and risk/complications include but not limited to infection, wound healing complications, hypertrophic scarring, numbness, tingling, chronic pain, CRPS, over and under correction, recurrence of deformity, DVT and or PE and the need for further surgery have been discussed in great detail with the patient. All questions have been answered to the patient's satisfaction. There are no guarantees given as to the outcome of the procedure. Description of Procedure: Under mild sedation, the patient was brought into the operating room and placed on the operating table in supine position. Once the patient was under general anesthesia with laryngeal mask airway, the left lower extremity was blocked using approximately 10 cc 0.5% Marcaine plain to the saphenous nerve, anesthesia will perform popliteal block in PACU. Next, a well-padded thigh tourniquet was applied to the left lower extremity. Next, the left lower extremities prepped and draped in normal aseptic manner. Next, a timeout was then undertaken verifying the correct patient, extremity, visibility of preoperative markings, availability of the equipment. Next, a 6 inch Esmarch was used to exsanguinate the left lower extremity elevated to 60 degrees for 1 minute and the tourniquet was inflated to 250 mmHg. Next, attention was directed to the lateral malleolus using a [place] and sterile marker as well as mini C arm, the incision was marked out over the retained painful orthopedic hardware. Using a #15 blade a full-thickness vision down to bone and hardware was made. Continued blunt dissection was carried down with a massey elevator. The hardware was exposed and showed evidence of backing out of one of the locking screws. Using the [employer] mail truck driver the screws were removed from the medial malleolus hook plate. The plate was then removed in total and passed to the back table. Next the medial malleolus screws, x2 removed distally with the [employer] mail truck driver. Confirmation of removal of the painful retained hardware was obtained clinically as well as with mini C arm. There is no evidence of remaining hardware in the tibia. There is still evidence of hardware in the talus which was not removed at this time. Next, incision and drainage was performed to the cutaneous abscess to the proximal posterior side of the incision. There is evidence of mucoid/fibrotic tissue, without purulence which was cultured and sent to the back table to be sent off for microbiology culture and sensitivity. Further dissection of the mucoid/fibrotic tissue was removed to be sent off for tissue culture for microbiology culture and sensitivity. The incision was flushed with copious moose of normal warm saline. Next using a rongeur, partial excision of tibia was removed to the distal medial malleolus at the level of the colliculi. 2 samples of bone were obtained to be sent off to the back table for pathology and microbiology culture and sensitivity. Using a Jamshidi needle, 2 additional partial excision of tibia were obtained distally approximately passed to the back table to be sent off for microbiology and culture and sensitivity. Using a Jamshidi needle, a core biopsy of the talus was taken at 2 separate places, passed to the back table to be sent off for pathology and microbiology culture and sensitivity. Again, the incisions were flushed with copious amounts of normal saline. Next, using a [place], the integrity of the distal tibia showed evidence of softening around the distal medial malleolus. The proximal tibia showed to be in good integrity proximal to the orthopedic hardware that was removed. Next, 1 g of vancomycin powder was placed in the incision. All incisions were closed in layers with 2-0 Vicryl. Tourniquet was deflated after 25 minutes and showed excellent reperfusion to the left lower extremity. The skin was reapproximated and closed with 3-0 nylon in horizontal mattress suture technique. Left lower extremities were cleaned and patted dry. The incisions were dressed with Betadine soaked Adaptic, dry sterile dressing and a 2 layer Ann compression AO splint was applied. The patient tolerated the procedure and anesthesia well and apparent satisfactory condition and was transported to the PACU for further monitoring prior to discharge [home / back to the floor]. Vital signs stable and vascular status intact to all digits bilateral. Post Operative Plan: Weightbearing: Nonweightbearing to left lower extremity. Full weightbearing to the right lower extremity. Antibiotics: 2 g Ancef DVT Prophylaxis: Ambulation Aguero: None Dressing: Betadine soaked Adaptic, dry sterile dressing, double layer Ann compression AO splint to the left lower extremity X-Rays: Post-operative films taken on the operating room. Pain Medication: Ibuprofen 800 mg, Tylenol 1000 mg Follow-up: 1 week postop in office with Dr. Astudillo. Grafts/Implants Used: None Complications None Admit VTE Documentation VTE Present on Admission: Yes VTE Mechan Device Prophylaxis: SCD's VTE Pharm Prophylaxis ordered?: No
[2023-02-09] MEDS: Magnesium 2 GM for ERAS IV (08:14)
[2023-02-09] MEDS: Lactated Ringers 1,000 ML 15 ML IV (08:14)
[2023-02-09] MEDS: Gabapentin 600 MG Tablet PO (08:15)
[2023-02-09] MEDS: Acetaminophen 500 MG Tablet 1000 MG PO (08:15)
[2023-02-09 08:26] LABS: Amphetamine Urine VISTA POSITIVE (<1000 ng/mL); Barbiturate Urine VISTA NEGATIVE (< 200 ng/mL); Benzodiazepine Urine VISTA NEGATIVE (< 200 ng/mL); Cocaine Urine VISTA NEGATIVE (< 300 ng/mL); Ecstacy Urine VISTA POSITIVE (< 500 ng/mL); Methadone Urine VISTA NEGATIVE (< 300 ng/mL); PCP Urine VISTA NEGATIVE (< 25 ng/mL); THC Urine VISTA POSITIVE (< 50 ng/mL); Vista UDS pH Range 5
--- NOTE | 2023-02-09 08:30 | BON_PTH ---
PATIENT: FARHAN ANDREWS LOC: [facility] – [place] U#:[id number] AGE/SX: 42/F ROOM: RE02/09/[address]: Dr. Ernesto Astudillo DPM : 1980 BED: DIS: 02/09/2023 SPEC #: [id number] RECD: 02/09/23 18:10 STATUS: OSCAR REArpit #: [id number] ADA: 02/09/23 08:[address]: Ernesto Astudillo DEPT: SURGICAL PATHOLOGY RECD BY: Cami Arcos ENTERED: 02/10/23 09:12 SP TYPE: Bone OTHR DR: Dr. Danielle Stallings MD Tissues: A - Tibia, NOS B - Tibia, NOS C - Bone of foot, NOS Procedures: Decalcification bone/plaque Surgery Specimen Level III Surgery Specimen Level IV HEADER OPERATION: ERAS, removal of painful hardware with partial excision PRE-OP DIAGNOSIS: Chronic ankle pain TISSUE SUBMITTED: A - Tibia bone, B - Tibia bone #2, C - Talus bone MICROSCOPIC DIAGNOSIS A - Tibia bone, biopsy: A piece of bone with moderate chronic inflammation, reactive changes and focal minimal acute inflammation. A piece of dense fibroconnective tissue with chronic inflammation and reactive changes. B - Tibia bone #2, biopsy: A piece of bone with chronic inflammation and reactive changes. C - Talus bone, biopsy: A piece of bone with reactive changes. SJ: 02/14/2023 MICROSCOPIC DESCRIPTION Slides are reviewed. GROSS DESCRIPTION A - Received in fixative is one container labeled with the patient's name and designated tibia bone. The specimen consists of two indurated fragments of ortega-white soft tissue measuring in aggregate 1.0 x 0.5 x 0.1 cm. The specimen is totally submitted in one cassette after decalcification. B - Received in fixative is one container labeled with the patient's name and designated tibia bone #2. The specimen consists of a single elongated core biopsy of bone measuring 0.9 x 0.2 cm. The specimen is totally submitted in one cassette after decalcification. C - Received in fixative is one container labeled with the patient's name and designated talus bone. The specimen consists of a light ortega core biopsy of bone measuring 0.5 cm in length and 0.2 cm in diameter. The specimen is totally submitted in one cassette after decalcification. / AM:juana 02/10/2023 TC:3 CPT: 67534 x3, 35028e9
[2023-02-09 08:48] LABS: Bedside Glucose 160 mg/dL (74-106)
--- NOTE | 2023-02-09 08:55 | EKG12_ITS ---
Test Reason : PREOP Blood Pressure : / mmHG Vent. Rate : 066 BPM Atrial Rate : 066 BPM P-R Int : 136 ms QRS Dur : 102 ms QT Int : 434 ms P-R-T Axes : 039 029 054 degrees QTc Int : 454 ms Normal sinus rhythm Normal ECG When compared with ECG of 02-MAY-2022 22:15, No significant change was found Confirmed by RUTH MARIE MD ([id number]), scientific editor ELADIA LUI ([id number]) on 02/09/2023 2:00:29 PM Also confirmed by THO CESPEDES, DEDE ([id number]), ELADIA Desir ([id number]) on 02/09/2023 2:07: 58 PM Referred By: Ernesto Astudillo Confirmed By:HAROON NETTLES MD
[2023-02-09] MEDS: Cefazolin 2 GM in 0.9% Normal Saline (100mL Bag) 100 ML IV (14:34)
--- NOTE | 2023-02-09 14:45 | RAD_ITS ---
STUDY: X-RAY - LEFT ANKLE REASON FOR EXAM: Female, 42 years old. PAIN TECHNIQUE: Multiple fluoroscopic spot films view(s) of the ankle. 24 seconds fluoroscopy time and 15 images. COMPARISON: December 30, 2022 FINDINGS: Sequential images demonstrate metallic fixation of the hindfoot. RAD/Ankle 2 Views IMPRESSION: Please correlate with clinical service Electronically Signed: Shaquille Muniz MD at 23:53 EDT ,
[2023-02-09] MEDS: Bupivacaine Mpf 0.5% 30 ML VIAL (14:50)
[2023-02-09] MEDS: Vancomycin IV 1,000 MG/20 ML Vial 1000 MG OPERA.SITE (15:15)
[2023-02-09 15:42] VITALS: BP 110/81; BP 122/85; PULSE 76; RESP 16; TEMP 36.4; O2SAT 93
[2023-02-09 15:45] VITALS: BP 110/77; BP 122/85; PULSE 66; RESP 16; O2SAT 95
[2023-02-09 16:00] VITALS: BP 102/69; BP 122/85; PULSE 79; RESP 16; O2SAT 98
[2023-02-09 16:13] VITALS: BP 116/90; BP 122/85; PULSE 72; RESP 18; TEMP 36.5; O2SAT 98
[2023-02-09 16:49] VITALS: BP 122/85
[2023-02-10 17:07] LABS: Cotinine Screen Blood 187.2 ng/mL (.); Nicotine Blood 29.6 ng/mL (.)
== END 2023-02-09 17:02 | disposition home or self-care (01) ==
LOC: SDC 07:28 → AC 07:29
PROVIDERS: Anesthesiology; PCP Internal Medicine; Referring Provider Podiatrist Foot & Ankle Surgery; Visit Provider Podiatrist Foot & Ankle Surgery
PROC: (CPT 20680; principal; 2023-02-09 08:20)
DX: L02.416 Cutaneous abscess of left lower limb (principal); T84.84XA Pain due to internal orthopedic prosthetic devices, implants and grafts, initial encounter; L97.522 Non-pressure chronic ulcer of other part of left foot with fat layer exposed; M86.60 Other chronic osteomyelitis, unspecified site; Z86.14 Personal history of Methicillin resistant Staphylococcus aureus infection; F12.10 Cannabis abuse, uncomplicated; F17.200 Nicotine dependence, unspecified, uncomplicated
CPT/HCPCS: 20680; 10060; 01480; 64445; 20220; 27640; 36415; 73600; 76000; 80076; 80307; 80323; 81025; 82306; 82962; 83036; 83735; 85610; 85730; 87070; 87075; 87077; 87081; 87102; 87186; 87205; 87206; 88304; 88305; 88311; 93005; J7120; G0480; J2405

== ENCOUNTER → 2024-02-28 | Outpatient (CLI) | payer MEDICAID, SELFPAY ==
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
== END | disposition home or self-care (01) ==
LOC: CT 18:13
PROVIDERS: PCP Internal Medicine; Referring Provider Podiatrist Foot & Ankle Surgery; Visit Provider Podiatrist Foot & Ankle Surgery
DX: M79.662 Pain in left lower leg (principal); M87.27 Osteonecrosis due to previous trauma, ankle, foot and toes
CPT/HCPCS: 73700